=== PATIENT | female | born 1960 | race Caucasian/White ===

== ENCOUNTER 2018-11-25 01:11 | Outpatient (CLI) | payer MEDICAID, SELFPAY ==
--- NOTE | 2018-11-25 12:20 | DI.MAMMO_ITS ---
SYMPTOMS/DIAGNOSIS: SCREENING, Z12.39 MAMMOGRAM: Mammograms were interpreted according to the usual protocol including computer analysis with CAD system, tomosynthesis and C view imaging. The breasts are of moderate density with fairly symmetrical distribution of fibroglandular tissue. No dominant mass or clumped microcalcification is identified in either breast. Current examination is compared with the previous examinations including July 2016 and there has been no gross interval change in appearance in comparison with the previous studies. CONCLUSION: No specific evidence of malignancy at this time. Routine screening examinations are suggested at yearly intervals in this age group according to the ACS/ACR guidelines. Category 1, breast density category B. MQSA ASSESSMENT OF FINDINGS: Negative. Category 1. Patient will receive a letter notifying them of these results. BI-RADS category B. There are scattered areas of fibroglandular density.
== END 2018-11-25 01:31 ==
PROVIDERS: PCP Nurse Practitioner Family; Visit Provider Nurse Practitioner Family
DX: Z12.31 Encounter for screening mammogram for malignant neoplasm of breast (principal)
CPT/HCPCS: 77063; 77067

== ENCOUNTER 2018-12-16 10:05 | Outpatient (REF) | payer MEDICAID, SELFPAY ==
[2018-12-16 16:28] LABS: ALT 41 U/L (12-78); AST 27 U/L (15-37); Albumin 4.2 g/dL (3.4-5.0); Alkaline Phosphatase 113 U/L (46-116); Anion Gap 11.8 mmol/L (3-11); BUN 13 mg/dL (7-18); Bilirubin, Total 0.8 mg/dL (0.2-1.0); CO2 25.2 mmol/L (21.0-32.0); CREATININE 0.91 mg/dL (0.55-1.02); Calculated LDL 97 mg/dL; Chloride 107 mmol/L (98-107); Cholesterol 169 mg/dL (50-200); Glucose 89 mg/dL (70-100); HDL Cholesterol 42 mg/dL (40-60); Potassium 4.2 mmol/L (3.5-5.1); Sodium 144 mmol/L (136-145); Total Protein 7.3 g/dL (6.4-8.2); Triglyceride 151 mg/dL (30-150)
[2018-12-16 16:31] LABS: Mean Corp. HGB Concentration 32.6 g/dL (32.0-36.0); Mean Corpuscular Hemoglobin 28.7 pg (27.0-33.0); Mean Corpuscular Volume 88.1 fL (80-95); Mean Platelet Volume 11.8 fL (8.0-11.0); Platelet Count 311 x1000/uL (130-400); RBC 4.88 m/cumm (4.00-5.20); RBC Distribution Width 13.8 % (11.7-14.6); White Blood Cell Count 8.92 k/cumm (4.4-10.8)
== END 2018-12-16 10:25 ==
LOC: NCHCN 10:05
PROVIDERS: PCP Nurse Practitioner Family; Visit Provider Nurse Practitioner Family
DX: I10 Essential (primary) hypertension (principal); Z00.00 Encounter for general adult medical examination without abnormal findings
CPT/HCPCS: 80053; 80061; 83721; 85027

== ENCOUNTER 2019-07-15 14:28 | Outpatient (REF) | payer MEDICAID, SELFPAY ==
[2019-07-15 19:06] LABS: PROTEIN < 6.0 mg/dL
[2019-07-15 19:10] LABS: COMMENT (LAB VIEW ONLY) 72.71 mg/dL; Microalb ug/mg Crea 11.3 ug/mg Cr
[2019-07-15 19:23] LABS: COMMENT (LAB VIEW ONLY) 73.16 mg/dL
== END 2019-07-15 14:48 ==
LOC: NCHCN 14:28
PROVIDERS: PCP Nurse Practitioner Family; Visit Provider Nurse Practitioner Family
DX: I10 Essential (primary) hypertension (principal)
CPT/HCPCS: 82043; 82565; 82570; 84156

== ENCOUNTER 2020-01-16 12:11 | Outpatient (REF) | payer MEDICAID, SELFPAY ==
--- NOTE | 2020-01-16 11:40 | PAPFT_PTH ---
PATIENT: Eli Brasher LOC: [facility] U#:[id number] AGE/SX: 59/F ROOM: RE01/16/[address]: Connor Decker : 1960 BED: DIS: 01/16/2020 SPEC #: [id number] RECD: 01/16/20 18:12 STATUS: DEANNE REQ #: [id number] [place]: 01/16/20 11:[address]: Connor Decker DEPT: [facility] Cytology RECD BY: Kimmy Monge Tissues: 1 - CX/ENDOCX FOR PAP SMEARS Procedures: PAP THIN PREP/UVM Screening HPV DNA PROBE Comments: [id number]
[2020-01-16 18:32] LABS: HCT 40.5 % (36.0-46.0); HGB 13.3 g/dL (11.2-15.7); MCH 29.4 pg (27.0-33.0); MCHC 32.8 % (32.0-36.0); MCV 89.6 fL (80-95); MPV 11.2 fL (8.0-11.0); Platelet Count 357 10^3/uL (130-400); RBC 4.52 10^6/uL (3.93-5.22); RDW 13.5 % (11.7-14.6); RDW-SD 44.3 fL
[2020-01-16 18:49] LABS: ALT 31 U/L (14-59); AST 16 U/L (15-37); Albumin 4.2 g/dL (3.4-5.0); Alkaline Phosphatase 106 U/L (46-116); Anion Gap 11.9 mmol/L (3-11); BUN 18 mg/dL (7-18); Bilirubin, Total 0.9 mg/dL (0.2-1.0); CO2 25.1 mmol/L (21.0-32.0); CREATININE 0.95 mg/dL (0.55-1.02); Calcium 9.6 mg/dL (8.5-10.1); Chloride 106 mmol/L (98-107); Glucose 90 mg/dL (74-106); Potassium 4.1 mmol/L (3.5-5.1); Sodium 143 mmol/L (136-145); Total Protein 7.3 g/dL (6.4-8.2)
== END 2020-01-16 12:31 ==
LOC: NCHCN 12:11
PROVIDERS: PCP Nurse Practitioner Family; Visit Provider Nurse Practitioner Family
DX: R23.8 Other skin changes (principal); Z12.4 Encounter for screening for malignant neoplasm of cervix; Z11.51 Encounter for screening for human papillomavirus (HPV)
CPT/HCPCS: 80053; 85027; 88142; 87624

== ENCOUNTER 2020-02-18 01:50 | Outpatient (CLI) | payer MEDICAID, SELFPAY ==
--- NOTE | 2020-02-18 | DI.US_ITS ---
EXAM: MG MAMMO DIAGNOSTIC BI CLINICAL HISTORY: LT BREAST LUMP, N63.0,N64.59 TECHNIQUE: Mammograms were interpreted according to the usual protocol including computer analysis w [employer] CAD system, tomosynthesis and C-view imaging. COMPARISON: 2010 through 2018 FINDINGS: Bilateral mammogram: The breasts are composed of scattered fibroglandular densities, Breast Density category B. No suspicious masses or suspicious microcalcifications are seen. No skin thickening or abnormal axillary lymph nodes are seen. There has been no significant change from prior exams. Left breast ultrasound: No cyst or solid mass is seen. There is no ductal dilatation or skin thicken ing. IMPRESSION: BI-RADS Category 1, Negative mammogram Yearly screening mammography is recommended. Breast Density - Category B, scattered fibroglandular densities. A negative radiographic report should not delay biopsy if a dominant or clinically suspicious mass is present. Up to ten percent of cancers are not identified on mammography. A negative report may reinforce clinical impression. Adenosis and dense breasts may obscure an underlying neoplasm. False positive reports average 6 to 10%. Patient will receive a letter notifying them of these results.
== END 2020-02-18 02:10 ==
PROVIDERS: PCP Nurse Practitioner Family; Visit Provider Nurse Practitioner Family
DX: N63.20 Unspecified lump in the left breast, unspecified quadrant (principal); N64.59 Other signs and symptoms in breast; R92.2 Inconclusive mammogram
CPT/HCPCS: 76642; 77062; 77066; G0279

== ENCOUNTER 2020-07-09 18:58 | Outpatient (REF) | payer MEDICAID, SELFPAY ==
[2020-07-09 17:03] LABS: HGB 11.9 g/dL (11.2-15.7); MCH 30.9 pg (27.0-33.0); MCHC 33.1 % (32.0-36.0); MCV 93.5 fL (80-95); MPV 10.9 fL (8.0-11.0); Platelet Count 364 10^3/uL (130-400); RBC 3.85 10^6/uL (3.93-5.22); RDW 13.9 % (11.7-14.6); RDW-SD 47.1 fL; WBC 10.89 10^3/uL (4.4-10.8)
[2020-07-09 17:08] LABS: Iron 79 ug/dL (50-170); Total Iron Binding Capacity 358 ug/dL (250-450); Transferrin Sat 22 % (15-50)
[2020-07-09 17:32] LABS: ALT 47 U/L (14-59); AST 31 U/L (15-37); Albumin 4.3 g/dL (3.4-5.0); Alkaline Phosphatase 124 U/L (46-116); Anion Gap 9.3 mmol/L (3-11); BUN 17 mg/dL (7-18); Bilirubin, Total 1.4 mg/dL (0.2-1.0); CO2 27.7 mmol/L (21.0-32.0); Calcium 9.4 mg/dL (8.5-10.1); Chloride 106 mmol/L (98-107); Estimated GFR 56.56 (mL/min/1.73m2); Ferritin 140 ng/mL (8-252); Glucose 92 mg/dL (74-106); Potassium 4.5 mmol/L (3.5-5.1); Sodium 143 mmol/L (136-145); TSH (W/Ref FT4) 2.08 uIU/mL (0.36-3.74); Total Protein 7.3 g/dL (6.4-8.2)
[2020-07-09 18:03] LABS: Vitamin B12 > 2000 pg/mL (193-986)
[2020-07-12 08:03] LABS: Vitamin D 25 Total 116.3 ng/ml (30-100)
== END 2020-07-09 18:59 | disposition home or self-care (01) ==
LOC: NCHCN 18:58
PROVIDERS: PCP Nurse Practitioner Family; Visit Provider Nurse Practitioner Family
DX: R23.8 Other skin changes (principal); R53.83 Other fatigue; I10 Essential (primary) hypertension; E67.3 Hypervitaminosis D; G25.81 Restless legs syndrome
CPT/HCPCS: 80053; 82306; 85027; 82607; 82728; 83540; 83550; 84443

== ENCOUNTER 2020-08-09 15:38 | Outpatient (REF) | payer MEDICAID, SELFPAY ==
[2020-08-09 19:06] LABS: Anion Gap 9.9 mmol/L (3-11); BUN 19 mg/dL (7-18); CO2 26.1 mmol/L (21.0-32.0); CREATININE 0.8 mg/dL (0.55-1.02); Calcium 9.3 mg/dL (8.5-10.1); Chloride 106 mmol/L (98-107); Glucose 87 mg/dL (74-106); Potassium 4.4 mmol/L (3.5-5.1); Sodium 142 mmol/L (136-145)
[2020-08-09 20:14] LABS: Vitamin D 25 Total 98.4 ng/ml (30-100)
[2020-08-11 10:16] LABS: Parathyroid Hormone,Intact 27 pg/mL (19-88)
== END 2020-08-09 15:39 | disposition home or self-care (01) ==
LOC: NCHCN 15:38
PROVIDERS: PCP Nurse Practitioner Family; Visit Provider Nurse Practitioner Family
DX: I10 Essential (primary) hypertension (principal); R53.83 Other fatigue; Z79.899 Other long term (current) drug therapy
CPT/HCPCS: 80048; 82306; 83970

== ENCOUNTER 2020-10-07 19:35 | Outpatient (REF) | payer MEDICAID, SELFPAY ==
[2020-10-07 17:51] LABS: Calculated LDL 82 mg/dL (<100); Cholesterol 154 mg/dL (<200); HDL Cholesterol 42 mg/dL (40-60); Triglyceride 151 mg/dL (<150)
[2020-10-07 18:13] LABS: Vitamin D 25 Total 89.5 ng/mL (30-100)
== END 2020-10-07 19:36 | disposition home or self-care (01) ==
LOC: NCHCN 19:35
PROVIDERS: PCP Nurse Practitioner Family; Visit Provider Nurse Practitioner Family
DX: E78.5 Hyperlipidemia, unspecified (principal); E55.9 Vitamin D deficiency, unspecified
CPT/HCPCS: 80061; 82306

== ENCOUNTER 2020-11-04 00:31 | Outpatient (CLI) | payer MEDICAID, SELFPAY ==
--- NOTE | 2020-11-04 | DI.US_ITS ---
APPROVED REPORT EXAM: Comprehensive 2D, Doppler, and color-flow Echocardiogram Patient Location: Out-Patient Packing Machine Feeder: Adela Lopez RDCS (AE) Indications: Chest tightness, Dyspnea on Exerction Other Information Study Quality: Good Conclusion Normal left ventricular wall thickness and chamber size. Estimated ejection fraction is 60%. Wall m otion is normal Normal right ventricular size and systolic function Both atria are normal in size There are no structural valvular abnormalities Mild mitral and tricuspid regurgitation. Trace pulmonic regurgitation Estimated right ventricular systolic pressure is 33 mmHg Wall motion Left Ventricle The left ventricle is grossly normal size. The left ventricular systolic function is normal. The left ventricular ejection fraction is within the normal range. There is normal left ventricular wall thic kness. There is normal LV segmental wall motion. There is no ventricular septal defect visualized. LV EF is 60%. Right Ventricle The right ventricle is normal size. The right ventricular systolic function is normal. The RVSP is 33 .2mmHg. Atria The left atrium size is normal. The right atrium size is normal. The interatrial septum is intact wit h no evidence for an atrial septal defect. Aortic Valve The aortic valve is normal in structure. Aortic valve is trileaflet. There is no aortic valvular sten osis. No aortic regurgitation is present. Mitral Valve The mitral valve is normal in structure. No evidence of mitral valve stenosis. Mild mitral regurgitat ion. Tricuspid Valve The tricuspid valve is normal in structure. There is no tricuspid valve stenosis. Mild tricuspid regu rgitation. Pulmonic Valve The pulmonary valve is normal in structure. There is no pulmonic valvular stenosis. Trace pulmonic re gurgitation. Great Vessels The aortic root is normal in size. The ascending aorta is normal in size. Aortic arch is normal in ca liber. IVC is normal in size and collapses >50% with inspiration. Pericardium There is no pericardial effusion. 2D Dimensions IVSD d PLAX 1.00 cm F: 0.6-1.0 LV Vol A2C d MOD 86.6 mL LVPW d PLAX 1.01 cm F: 0.6 - 1.0 LV Vol A4C d MOD 86.5 mL LVID d PLAX 4.34 cm F: 3.8 - 5.2 LA vol/ BSA A2C s A-L 38.8 mL/m2 LVDs 2.75 cm F: 2.2 - 3.5 LA vol/ BSA A4C s A-L 31.0 mL/m2 Ao Root d 2.50 cm F: 2.7 - 3.3 LA Vol/ BSA Biplane s A-L 34.9 mL/m2 RA Area A4C 14.60 cm2 LA Area A4C s MOD 19.42 cm2 RA Vol/ BSA A4C s A-L 20.7 mL/m2 LA Area A2C s MOD 21.57 cm2 Ao Asc Diam d 3.19 cm F: 2.3 - 3.1 LV EF A4C MOD 60.9 % LV EF Teichholz 66.7 % LV EF A2C MOD 58.0 % LVEF (Hatch's) 59.60 % F: 54 - 74 LV EF Biplane MOD 59.6 % LV Volume 68.27 mL F: 46 - 106 SV 52.28 mL LV Volume Index 38.13 mL/m2 F: 29 - 61 SV Index 29.09 mL/m2 LV Vol Biplane MOD 87.7 mL FS 36.65 % LV Diastology E/A Ratio 1.0 MV E Vmax 0.88 (0.4-1.3 m/s) MV A Vmax 0.90 (0.4-1.3 m/s) MV E/A Ratio 0.93 Aortic Valve LVOT Area 2.73 cm2 AoV Area Vmax 2.30 cm2 LVOT Vmax 1.27 m/s AoV Area/ BSA (Vmax) 1.28 cm2/m2 LVOT Mean Kenan. 0.84 m/s FANG Mean Kenan. 2.33 cm2 LVOT Peak Grad 6.5 mmHg FANG Mean Kenan. Index 1.30 cm2/m2 LVOT Mean Grad 3.2 mmHg LVOT VTI 0.281 m LVOT Diam s 1.85 cm AoV Vmax 1.51 m/s Velocity Ratio 0.84 AoV Mean Kenan. 0.98 m/s AoV Peak Grad 9.1 mmHg LVOT SV 76.76 mL AoV Mean Grad 4.4 mmHg AoV VTI 0.305 m AoV Area VTI 2.52 cm2 AoV Area/ BSA (VTI) 1.40 cm/m2 Mitral Valve MV DT 221 (160-240 msec) MR Vmax 4.96 m/s MV PHT 64 msec MR VTI 1.824 m MV Area PHT 3.43 cm2 MR Peak Grad 98.5 mmHg MV VTI 0.347 m MR Mean Grad 73.0 mmHg MV VTI Annulus 0.354 m MR PISA Radius 0.58 cm MV Area VTI 2.26 (4.0-6.0 cm2) MR EROA 0.15 cm2 MR Aliasing Velocity 0.35 m/s MR PISA 2.10 cm2 Pulmonary Valve PV Vmax 0.94 (0.5-1.5 m/s) RVOT Peak Gr. 2.58 mmHg PV Peak Grad 3.5 mmHg RVOT Mean Gr. 1.25 mmHg PV Mean Grad 2.0 mmHg RVOT VTI 0.183 m PV VTI 0.238 m RVOT Vmax 0.80 m/s Tricuspid Valve TR Peak Grad 30.2 mmHg TR Vmax 2.75 m/s RA Pressure 3.00 mmHg RVSP (TR) 33.2 mmHg
--- NOTE | 2020-11-04 08:00 | ETT_ITS ---
APPROVED REPORT Exam: Exercise Treadmill Patient Location: Out-Patient Room/Bed: Stress Nurse: Brenna Lorenzo RN; Nevaeh Wagoner RN Ordering Provider:RAHUL TOLEDO, Contact Number: [phone] BMI: 30.64 Baseline Rhythm: Sinus Bradycardia Indications: chest tightness, dyspnea on exertion Medical History Medical History: HTN, HLD, GERD, hital hernia, anxiety, depression, obesity, vertigo, sciatica, migra gladis, polyarthralgia Cardiac Medications: Aspirin Allergies: lisinopril, sulfa, latex, tetracycline, hydroxyzine Cardiac Risk Factors: HTN, HLD, Obesity Previous Cardiac Procedures: none Pretest Chest Pain Characteristics: No chest pain Exercise History: Sedentary Physical Disabilities: none Lung Sounds: Clear to auscultation Heart Sounds: Regular Stress Test Details Test: Exercise stress testing was performed using a Mukund protocol. Rest Stress HR Resting HR Supine: 57 bpm Max Heart Rate (APMHR): 160 bpm Resting HR Standin bpm Target HR (85% APMHR): 136 bpm Max HR Achieved: 143 bpm % of APMHR: 89 Recovery HR: 74 bpm HR response to stress: Normal HR response to stress BP Resting BP Supine: 150/88 mmHg Resting BP Standin/86 mmHg Max BP: 176/78 mmHg Recovery BP: 150/84 mmHg BP response to stress: Normal blood pressure response to stress. ECG Resting ECG: Sinus Bradycardia Ectopy: none Stress ECG: Sinus Tachycardia ST Change: No significant ST segment changes noted Arrhythmia: None Recovery ECG: Sinus Rhythm Recovery ST Change: No significant ST segment changes noted Recovery Arrhythmia: None Clinical Reason for Termination: Fatigue Stress Symptoms: Chest pain, dizziness, nausea Exercise duration: 6 min53 sec Highest Stage Reached: Stage 3: 3.4 mph at 14% grade. Exercise capacity: 8.41 METs Costa Treadmill Score: 6 Rate Pressure Product: 11580 Stress ECG Conclusion 1. The resting electrocardiogram was normal 2. The patient exercised on the Mukund protocol and completed a workload of 8.41 METS, 3. Normal heart rate and blood pressure response to exercise. The patient achieved 89% of predicted heart rate for age 4. Electrocardiographically there was no evidence of myocardial ischemia 5. There were no significant dysrhythmias Costa Treadmill Score is 6 which is Low risk. Stress Test Summary STAGE Time (mins) Speed (mph) Grade (%) HR BP SYMPTOMS METS Supine 57 150/88 Standing 67 144/86 1 3 1.7 10 122 162/84 3/10 chest pressure 4.6 2 6 2.5 12 136 3/10 chest pressure, mild dizziness, nausea 7 1 min recovery 109 176/78 3 min recovery 83 166/80 symptoms improving 6 min recovery 74 150/84 symptoms resolved
== END 2020-11-04 00:51 ==
PROVIDERS: PCP Nurse Practitioner Family; Visit Provider Nurse Practitioner Family
DX: R06.09 Other forms of dyspnea (principal); I10 Essential (primary) hypertension; E78.5 Hyperlipidemia, unspecified; E66.9 Obesity, unspecified
CPT/HCPCS: 93017; 93306

== ENCOUNTER 2020-12-07 03:39 | Outpatient (CLI) | payer MEDICAID, SELFPAY ==
[2020-12-07] MEDS: Albuterol HFA 18 GM 200 PUFF INH IH (15:56)
[2020-12-07] MEDS: Inhaler, Assist Device 1 EACH MC (15:57)
--- NOTE | 2020-12-08 07:42 | W.PFT ---
Date of service: 12/07/20 Time of Service: 14:51 Pulmonary Function Test Result There is no airflow limitation. There is no significant bronchodilator response. Lung volumes are normal. There is a mild reduction in diffusion. Airways resistance is normal.
== END 2020-12-07 03:40 | disposition home or self-care (01) ==
LOC: RT 03:40
PROVIDERS: PCP Nurse Practitioner Family; Visit Provider Physician Assistant
DX: R06.09 Other forms of dyspnea (principal)
CPT/HCPCS: 94060; 94726; 94729

== ENCOUNTER 2021-03-25 13:28 | Emergency (ER) | payer MEDICAID, SELFPAY ==
[2021-03-25 13:31] VITALS: BP 140/76; PULSE 80; RESP 18; TEMP 37.4; O2SAT 99
[2021-03-25] MEDS: Normal Saline 1,000 ML 1000 ML IV (14:03)
[2021-03-25 14:04] LABS: Abs Immature Grans 0.13 10^3/uL (0.0-0.06); Absolute Basophil Count 0.06 10^3/uL (0.0-0.2); Absolute Monocyte Count 1.27 10^3/uL (0.1-0.8); Basophils % 0.3; Eosinophils % 0.5; HGB 9.8 g/dL (11.2-15.7); Immature Grans % 0.6; Lymphocytes % 9.6; MCH 31.9 pg (27.0-33.0); MCHC 32.7 % (32.0-36.0); MCV 97.7 fL (80-95); MPV 9.9 fL (8.0-11.0); Monocytes % 6.3; Neutrophils % 82.7; Nucleated RBC 0 %; Platelet Count 373 10^3/uL (130-400); RBC 3.07 10^6/uL (3.93-5.22); RDW 15.2 % (11.7-14.6); RDW-SD 51.8 fL; WBC 20.14 10^3/uL (4.4-10.8)
[2021-03-25 14:05] LABS: Absolute Lymphocyte Count 1.93 10^3/uL (1.2-3.4); Absolute Neutrophil Count 16.66 10^3/uL (1.2-6.7)
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
[2021-03-25] MEDS: HYDROmorphone 2 MG/ML VIAL 1 MG IVP ×2 (14:17→15:38)
[2021-03-25 14:25] LABS: ALT 30 U/L (14-59); AST 51 U/L (15-37); Albumin 4.2 g/dL (3.4-5.0); Alkaline Phosphatase 111 U/L (46-116); Anion Gap 10.4 mmol/L (3-11); BUN 17 mg/dL (7-18); Bilirubin, Direct 0.3 mg/dL (0.0-0.2); Bilirubin, Total 5.3 mg/dL (0.2-1.0); CO2 26.6 mmol/L (21.0-32.0); CREATININE 1.1 mg/dL (0.55-1.02); Chloride 104 mmol/L (98-107); Glucose 112 mg/dL (74-106); Lipase 90 U/L (73-393); Potassium 3.3 mmol/L (3.5-5.1); Sodium 141 mmol/L (136-145); Total Protein 7.8 g/dL (6.4-8.2)
[2021-03-25] MEDS: Omnipaque 350 MG/ML 100 ML BTL IJ (15:25)
[2021-03-25] MEDS: Normal Saline Flush 10 ML SYR IVP (15:26)
[2021-03-25] MEDS: Normal Saline - Diluent 50 ML VIAL IV (15:26)
--- NOTE | 2021-03-25 15:30 | DI.CT_ITS ---
Exam(s) CT ABDOMEN PELVIS W EXAM: CT ABDOMEN PELVIS W CLINICAL HISTORY: right sided abdominal pain. TECHNIQUE: Imaging Protocol: Axial computed tomography images with coronal and sagittal reformatted images were created and reviewed CONTRAST MATERIAL: Intravenous: Omnipaque 350 Contrast volume:100 ml Oral: no COMPARISON: CT ABD PELVIS WITH CONTRAST from 10/18/2012 CT ABD PELVIS WITH CONTRAST from 10/18/2012 FINDINGS: ABDOMEN: Lung Bases: Normal where visualized. Liver: Normal density. No stable hypodensities.. Gallbladder and biliary tract: Status post cholecystectomy. No radiodense calculus or dilation. Pancreas: Normal density, no abnormal calcifications or inflammatory process. Spleen: Normal. Kidneys: Normal size, contour and axis. No radiodense stones or obstructive uropathy. No masses seen. Left renal cyst. Adrenal glands: No masses seen. Abdominal Aorta: Abdominal portion non-dilated. PELVIS: Bladder: No gross wall thickening. No calculi.No focal mass. Bowel: Marked inflammation at the hepatic flexure and proximal transverse colon. Diverticula are vis ible in this area. The findings are consistent with diverticulitis. No abscess or perforation is se en. There is no obstruction.. Appendix normal. Peritoneal cavity: Trace fluid in the low pelvis. Bones: Within normal limits for age. Reproductive organs: Within normal limits. Lymph nodes: Unremarkable. Impression: Diverticulitis near the hepatic flexure. No abscess or perforation. Findings were called to Dr. Monroe Ibanez of the emergency department. RADIATION DOSE DELIVERED: 976.65mGy.cm Total DLP DATA REPOSITORY: All CT scans at this facility are submitted to the National Radiology Data Registry (NRDR) Dose Index Registry (DIR) with the [employer] (ACR). RADIATION OPTIMIZATION: All CT scans at this facility use at least one of these dose optimization te chniques: automated exposure control; mA and/or kV adjustment per patient size (includes targeted exa ms where dose is matched to clinical indication); or iterative reconstruction.
[2021-03-25 15:41] LABS: Bilirubin Negative (Negative); Blood Trace-intact (Negative); Clarity Clear (Clear); Glucose Negative (Negative); Ketones Negative (Negative); Leukocyte Esterase Negative (Negative); Nitrite Negative (Negative); Urobilinogen 0.2 EU/dL (Up TO 0.2)
[2021-03-25 16:00] LABS: Bacteria Rare HPF (Negative); C & S Indicated? No; Crystals Negative HPF (Negative); Epithelial Cells Moderate HPF (Negative); Mucus Moderate (Negative); RBC 0-2 HPF (0-2); WBC 0-2 HPF (0-5)
[2021-03-25] MEDS: Ciprofloxacin 500 MG TAB PO (16:10)
[2021-03-25] MEDS: metroNIDAZOLE 500 MG TAB PO (16:10)
[2021-03-25 16:18] VITALS: BP 133/80; PULSE 74; TEMP 37.2; O2SAT 97
== END 2021-03-25 16:20 | disposition home or self-care (01) ==
PROVIDERS: Emergency Provider Emergency Medicine; PCP Physician Assistant
DX: K57.32 Diverticulitis of large intestine without perforation or abscess without bleeding (principal); R10.11 Right upper quadrant pain; R10.31 Right lower quadrant pain
CPT/HCPCS: 36415; 80053; 83690; 96361; 96374; 96376; 99285; 74177; 81003; 81015; 82248; 83735; 85025; 99284; J3490

== ENCOUNTER 2021-04-27 14:15 | Outpatient (CLI) | payer MEDICAID, SELFPAY ==
--- NOTE | 2021-04-27 | DI.CT_ITS ---
Exam(s) CT ABDOMEN PELVIS W EXAM: CT ABDOMEN PELVIS W CLINICAL HISTORY: DIVERTICULITIS, K57.92. TECHNIQUE: Imaging Protocol: Axial computed tomography images with coronal and sagittal reformatted images were created and reviewed CONTRAST MATERIAL: Intravenous: Omnipaque 100cc Oral: Oral contrast was administered for bowel opacification. COMPARISON: CT CT ABDOMEN PELVIS W from 03/25/2021 FINDINGS: VISUALIZED LUNG BASES: No nodules nor pleural effusions evident. ABDOMEN: There is no ascites. LIVER: There are no focal hepatic lesions evident. No evidence of hepatic abscess. No air in the po rtal venous system. GALLBLADDER/BILIARY: Gallbladder is again noted to be surgically absent CBD is not dilated. PANCREAS: No evidence of pancreatic mass nor dilatation of the pancreatic duct. SPLEEN: Spleen is not enlarged. No obvious intrasplenic lesions. Splenic and portal veins are paten t. ADRENALS: There are no significant adrenal masses. KIDNEYS:Cyst again noted in the left kidney extending from the parapelvic region to the outer cortex and measuring 3.9 cm wide by 2.8 cm AP. Tiny cysts noted in the opposite-right kidney. No solid guerline al masses. No calculi. No hydronephrosis. No hydroureter. No significant focal findings in the ur inary bladder. No air-gas in the urinary bladder.. ABDOMINAL AORTA: Abdominal aorta is not enlarged. LYMPH NODES:There is no retroperitoneal nor paraaortic adenopathy. ABDOMINAL WALL: No evidence of significant anterior abdominal wall nor inguinal hernia. GI: There has been significant improvement in the appearance of the: At the hepatic flexure and proxi mal transverse colon which was the site of the previous severe inflammatory change. Presently are fe w small non complicated diverticuli evident at this level. No distinct mass. No abscess. PELVIS: GI: No evidence of appendicitis.There is diffuse mild thickening of the wall of the entire sigmoid wh ich has more the appearance of muscular hyperplasia. LYMPH NODES: There is no intrapelvic nor inguinal adenopathy. REPRODUCTIVE: Uterus size is normal. Adnexal regions appear age-appropriate. There is no free fluid in the pelvis. URINARY BLADDER: No calculi nor obvious masses evident OSSEOUS: No significant osseous lesions. IMPRESSION: 1. Compared to the prior CT scan of 03/25/2021 there has been significant improvement in the previous ly described inflammatory changes in the right-side of the colon. These have now resolved and there is no evidence of free air nor abscess nor free fluid elsewhere in the abdomen and pelvis. No signif icant adenopathy. 2. No evidence of intrahepatic abscess nor free air within the portal venous system 3. There is diffuse circumferential thickening of the wall of a large part of the sigmoid, probably m uscular hyperplasia. Follow-up colonoscopy is recommended. RADIATION DOSE DELIVERED: 976.93mGy.cm Total DLP DATA REPOSITORY: All CT scans at this facility are submitted to the National Radiology Data Registry (NRDR) Dose Index Registry (DIR) with the [employer] (ACR). RADIATION OPTIMIZATION: All CT scans at this facility use at least one of these dose optimization te chniques: automated exposure control; mA and/or kV adjustment per patient size (includes targeted exa ms where dose is matched to clinical indication); or iterative reconstruction.
[2021-04-27] MEDS: Breeza Beverage 473 ML BTL PO (14:53)
[2021-04-27] MEDS: Omnipaque 350 MG/ML 50 ML BTL IJ (14:54)
[2021-04-27] MEDS: Omnipaque 350 MG/ML 100 ML BTL IJ (16:26)
== END 2021-04-27 14:35 ==
PROVIDERS: PCP Physician Assistant; Visit Provider Surgery
DX: K57.92 Diverticulitis of intestine, part unspecified, without perforation or abscess without bleeding (principal); R93.3 Abnormal findings on diagnostic imaging of other parts of digestive tract
CPT/HCPCS: 74177; J3490; Q9967

== ENCOUNTER 2021-04-27 14:56 | Outpatient (REF) | payer MEDICAID, SELFPAY ==
[2021-04-27 13:46] LABS: C Diff PCR Negative (Negative)
[2021-04-27 14:54] LABS: Abs Immature Grans 0.05 10^3/uL (0.0-0.06); Absolute Basophil Count 0.08 10^3/uL (0.0-0.2); Absolute Eosinophil Count 0.24 10^3/uL (0.0-0.7); Absolute Lymphocyte Count 2.25 10^3/uL (1.2-3.4); Absolute Monocyte Count 0.69 10^3/uL (0.1-0.8); Absolute Neutrophil Count 5.86 10^3/uL (1.2-6.7); Basophils % 0.9; Eosinophils % 2.6; HCT 29.9 % (36.0-46.0); HGB 9.5 g/dL (11.2-15.7); Immature Grans % 0.5; Lymphocytes % 24.5; MCH 31.8 pg (27.0-33.0); MCHC 31.8 % (32.0-36.0); MPV 10.3 fL (8.0-11.0); Monocytes % 7.5; Nucleated RBC 0 %; Platelet Count 343 10^3/uL (130-400); RBC 2.99 10^6/uL (3.93-5.22); RDW 15.6 % (11.7-14.6); RDW-SD 56.5 fL; WBC 9.17 10^3/uL (4.4-10.8)
[2021-04-27 15:09] LABS: ALT 39 U/L (14-59); AST 25 U/L (15-37); Albumin 4.2 g/dL (3.4-5.0); Alkaline Phosphatase 112 U/L (46-116); Anion Gap 8.3 mmol/L (3-11); BUN 15 mg/dL (7-18); Bilirubin, Total 2.2 mg/dL (0.2-1.0); CO2 26.7 mmol/L (21.0-32.0); CREATININE 0.9 mg/dL (0.55-1.02); Chloride 108 mmol/L (98-107); Glucose 102 mg/dL (74-106); Potassium 3.7 mmol/L (3.5-5.1); Sodium 143 mmol/L (136-145); Total Protein 7.3 g/dL (6.4-8.2)
[2021-04-27 22:44] LABS: CRP, High Sensitivity 7.14 mg/L (See Note)
== END 2021-04-27 14:57 | disposition home or self-care (01) ==
LOC: LBN 14:56
PROVIDERS: PCP Physician Assistant; Visit Provider Surgery
DX: K57.92 Diverticulitis of intestine, part unspecified, without perforation or abscess without bleeding (principal)
CPT/HCPCS: 80053; 86141; 87493; 85025

== ENCOUNTER 2021-06-08 01:26 | Outpatient (CLI) | payer MEDICAID, SELFPAY ==
--- NOTE | 2021-06-08 17:00 | DI.DEXA_ITS ---
Exam(s) XR DEXA BONE DENSITY W/WO WINDY EXAM: XR DEXA BONE DENSITY W/WO WINDY CLINICAL HISTORY: NORMAL PHYSICAL EXAMINATION, Z00.00 TECHNIQUE: Routine DEXA evaluation of the lumbar spine, hip, or forearm. COMPARISON: No exams were available for comparison FINDINGS: Performed on a Hologic unit. Lateral image: No compression fracture evident. Lumbar Spine total T-score: -0.8 Hip total T-score:0.2 Independent reading at the level of the femoral neck yields at T-score of 0.0. Forearm total T-score: -0.7 IMPRESSION: Bone mineral density measures in the normal range. Fracture risk is low. Note: Any spine fracture indicates 5x risk for subsequent spine fracture and 2x risk for subsequent h ip fracture. World Health Organization criteria for BMD interpretation classify patients: Normal...... T- Score at or above -1.0 Osteopenic... T- Score between -1.0 and -2.5 Osteoporosis... T-Score at or below -2.5
== END 2021-06-08 01:46 ==
PROVIDERS: PCP Physician Assistant; Visit Provider Physician Assistant
DX: Z13.820 Encounter for screening for osteoporosis (principal)
CPT/HCPCS: 77080

== ENCOUNTER 2021-06-10 01:40 | Outpatient (CLI) | payer MEDICAID, SELFPAY ==
[2021-06-11 13:27] LABS: COVID-19 RT-PCR UVMMC Result Negative (Negative)
== END 2021-06-10 01:41 | disposition home or self-care (01) ==
LOC: LBO 01:40
PROVIDERS: PCP Physician Assistant; Visit Provider Surgery
DX: Z20.822 Contact with and (suspected) exposure to COVID-19 (principal); R13.10 Dysphagia, unspecified; K57.92 Diverticulitis of intestine, part unspecified, without perforation or abscess without bleeding
CPT/HCPCS: U0003

== ENCOUNTER 2022-01-07 15:58 | Inpatient (IN) | payer MEDICAID, SELFPAY ==
[2022-01-07 16:05] VITALS: BP 124/69; PULSE 72; RESP 18; TEMP 36.9; O2SAT 98
--- NOTE | 2022-01-07 16:30 | DI.CT_ITS ---
Exam(s) CT ABDOMEN PELVIS W EXAM: CT ABDOMEN PELVIS W INDICATION: diffuse abd pain, r/o diverticulitis, sbo, colitis. COMPARISON: CT CT ABDOMEN PELVIS W from 04/27/2021 TECHNIQUE: FINDINGS: CT examination of the abdomen and pelvis was performed with intravenous infusion of 100 cc of Omnipaq ue 350. Images obtained through the lung bases are unremarkable. The liver is unremarkable in appearance except for a small low-attenuation central lesion, this previ ously had appearance of hepatic hemangioma.. Gallbladder and bile ducts are CT normal. Pancreas appears normal. Spleen is unremarkable in appearance. Adrenals appear normal. The kidneys are unremarkable with no evidence of hydronephrosis, nephrolithiasis, or renal mass. The re is an incidental left renal cortical cyst measuring roughly 3.2 cm in diameter.. Urinary bladder unremarkable. Abdominal aorta is of normal diameter and no major vascular abnormality is seen. No abdominal wall hernia. No abdominal or pelvic adenopathy. [employer] structures appear intact. Appendix is normal. There is no evidence of bowel obstruction. There is focal wall thickening and p ericolonic fat edema associated with the proximal transverse colon consistent with uncomplicated dive rticulitis. No abscess or perforation.. IMPRESSION: The appearance is consistent with diverticulitis of the proximal transverse colon, uncomplicated. Pl ease see above discussion.. RADIATION DOSE DELIVERED: 1,043.87mGy.cm Total DLP 1,043.87mGy.cm Total DLP !Error CTDIvol RADIATION OPTIMIZATION: All CT scans at this facility use at least one of these dose optimization te chniques: automated exposure control; mA and/or kV adjustment per patient size (includes targeted exa ms where dose is matched to clinical indication); or iterative reconstruction.
[2022-01-07] MEDS: HYDROmorphone 2 MG/ML VIAL 0.5 MG IVP (16:48)
[2022-01-07 16:58] LABS: Abs Immature Grans 0.14 10^3/uL (0.0-0.06); Absolute Eosinophil Count 0.06 10^3/uL (0.0-0.7); Absolute Neutrophil Count 17.95 10^3/uL (1.2-6.7); Basophils % 0.3; Eosinophils % 0.3; HCT 26.1 % (36.0-46.0); HGB 8.9 g/dL (11.2-15.7); Immature Grans % 0.7; Lymphocytes % 9.5; MCH 34.5 pg (27.0-33.0); MCHC 34.1 % (32.0-36.0); MCV 101 fL (80-95); MPV 10.6 fL (8.0-11.0); Monocytes % 5.3; Neutrophils % 83.9; Platelet Count 392 10^3/uL (130-400); RBC 2.58 10^6/uL (3.93-5.22); RDW 18.5 % (11.7-14.6); RDW-SD 55.2 fL
[2022-01-07 17:08] LABS: Absolute Basophil Count 0.06 10^3/uL (0.0-0.2); Absolute Lymphocyte Count 2.03 10^3/uL (1.2-3.4); Absolute Monocyte Count 1.13 10^3/uL (0.1-0.8)
[2022-01-07 17:12] LABS: ALT 28 U/L (14-59); AST 17 U/L (15-37); Alkaline Phosphatase 109 U/L (46-116); Anion Gap 9.5 mmol/L (3-11); BUN 19 mg/dL (7-18); Bilirubin, Total 4.5 mg/dL (0.2-1.0); CO2 26.5 mmol/L (21.0-32.0); Calcium 8.5 mg/dL (8.5-10.1); Chloride 104 mmol/L (98-107); Estimated GFR 56.37 (mL/min/1.73m2); Glucose 97 mg/dL (74-106); Lipase 72 U/L (73-393); Potassium 3.7 mmol/L (3.5-5.1); Sodium 140 mmol/L (136-145); Total Protein 7.3 g/dL (6.4-8.2)
[2022-01-07 17:26] LABS: Bacteria Negative HPF (Negative); Bilirubin Negative (Negative); Blood Trace-intact (Negative); C & S Indicated? No; Casts Negative LPF (Negative); Clarity Clear (Clear); Crystals Negative HPF (Negative); Epithelial Cells Rare HPF (Negative); Glucose Negative (Negative); Ketones Negative (Negative); Leukocyte Esterase Negative (Negative); Mucus Negative (Negative); Nitrite Negative (Negative); Other Cells Negative (Negative); RBC Negative HPF (0-2); Urobilinogen 0.2 EU/dL (Up TO 0.2); WBC 0-2 HPF (0-5)
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
[2022-01-07] MEDS: HYDROmorphone 2 MG/ML VIAL 1 MG IVP (18:25)
--- NOTE | 2022-01-07 20:03 | DI.VRAD_ITS ---
Addendum created by Miriam Lou MD on 01/07/2022 8:06:51 PM EDT: THIS REPORT CONTAINS FINDINGS THAT MAY BE CRITICAL TO PATIENT CARE. The findings were verbally communicated via telephone conference with lucian pettit at 8:06 PM EDT on 01/07/2022. The findings were acknowledged and understood. Initial report created on 01/07/2022 8:02:51 PM EDT: PROCEDURE INFORMATION: Exam: CT Abdomen And Pelvis With Contrast Exam date and time: 01/07/2022 6:47 PM Age: 61 years old Clinical indication: Abdominal pain TECHNIQUE: Imaging protocol: Computed tomography of the abdomen and pelvis with contrast. Contrast material: OMNIPAQUE 350; Contrast volume: 100 ml; Contrast route: INTRAVENOUS (IV); COMPARISON: CT ABDOMEN PELVIS W 04/27/2021 4:20 PM FINDINGS: Lungs: Atelectasis versus scarring at the lung bases. Diaphragm: Small hiatal hernia. Liver: There is a hypodensity in the right hepatic lobe on series 4, image 22. On prior examination, this demonstrated some peripheral nodular enhancement, suggesting that it could represent a hemangioma. Diagnosis can be confirmed with MRI. Gallbladder and bile ducts: Cholecystectomy. Pancreas: There is a small 4 mm hypodensity in the pancreatic body on series 5, image 233. This may represent a pancreatic lipoma. MRI with and without contrast suggested for further evaluation. This is unchanged from prior exam. Spleen: Normal. No splenomegaly. Adrenal glands: Normal. No mass. Kidneys and ureters: Cystic structure in the left kidney remains seen. There are too small to characterize hypodensities in each kidney. No hydronephrosis. Stomach and bowel: No obstruction. There are inflamed appearing diverticula within the proximal transverse colon on series 4, image 47 with stranding of the surrounding fat. Findings are most consistent with acute diverticulitis. There is also a focus of fat stranding near the sigmoid colon on series 4, image 73 concerning for a 2nd subtle focus of diverticulitis. Appendix: No evidence of appendicitis. Intraperitoneal space: No free air. A surgical clip is noted in the anterior intraperitoneal fat, series 4, image 47. Vasculature: Unremarkable. No abdominal aortic aneurysm. Lymph nodes: Unremarkable. No enlarged lymph nodes. Urinary bladder: Urinary bladder wall prominence. This can be seen with infection or underdistention. Reproductive: Unremarkable as visualized. Bones/joints: Skeletal degenerative changes.. No acute fracture. Soft tissues: Unremarkable. IMPRESSION: 1. There are inflamed appearing diverticula within the proximal transverse colon on series 4, image 47 with stranding of the surrounding fat. Findings are most consistent with acute diverticulitis. There is also a focus of fat stranding near the sigmoid colon on series 4, image 73 concerning for a 2nd subtle focus of diverticulitis. 2. Possible pancreatic lipoma. MRI with and without contrast suggested for further evaluation. There is also a probable hemangioma within the liver. Diagnosis can be confirmed with MRI. 3. Urinary bladder wall prominence. This can be seen with infection or underdistention. Other findings/details as above. Dictated and Authenticated by: Miriam Lou MD. Ordering:NII Gipson MD
[2022-01-07 20:04] VITALS: BP 138/68; PULSE 66; RESP 16; TEMP 36.6; O2SAT 98
[2022-01-07] MEDS: PIPERACILLIN/TAZO 3.375 GM in Normal Saline 50 ML IVPB (20:39)
[2022-01-07] MEDS: Normal Saline 1,000 ML 1000 ML IV (20:40)
[2022-01-07] MEDS: Normal Saline Flush 10 ML SYR IVP ×2 (20:40→23:27)
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
[2022-01-07 22:05] VITALS: BP 138/68; PULSE 66; RESP 16; TEMP 36.6; O2SAT 98
[2022-01-07 22:17] LABS: Source Nasal/Nares
[2022-01-07 22:22] VITALS: BP 147/83; PULSE 66; RESP 20; TEMP 36.6; O2SAT 97
[2022-01-07 22:24] LABS: Lab Add On Test DONE
[2022-01-07 22:45] LABS: C-Reactive Protein 8.39 mg/dL (0.0-0.3)
[2022-01-07] MEDS: DEXTROSE 5%-0.45% SALINE 1,000 ML 125 ML IV (23:17)
[2022-01-07] MEDS: Enoxaparin 40 MG/0.4 ML SYR SC (23:17)
[2022-01-07] MEDS: FAMOTIDINE 20 MG in Normal Saline 100 ML 400 MG IVPB (23:17)
[2022-01-07] MEDS: Ketorolac 15 MG/ML VIAL IVP (23:18)
[2022-01-07] MEDS: traZODone 100 MG TAB PO (23:18)
[2022-01-07] MEDS: Hyoscyamine 0.125 MG SL/ORAL/CHEW SL (23:18)
[2022-01-08 00:11] LABS: COVID-19 PCR Negative (Negative)
[2022-01-08] MEDS: PIPERACILLIN/TAZO 3.375 GM in Normal Saline 50 ML IVPB ×3 (03:50→21:00)
[2022-01-08 06:19] LABS: Absolute Basophil Count 0.03 10^3/uL (0.0-0.2); Absolute Eosinophil Count 0.06 10^3/uL (0.0-0.7); Absolute Lymphocyte Count 1.17 10^3/uL (1.2-3.4); Absolute Monocyte Count 0.75 10^3/uL (0.1-0.8); Absolute Neutrophil Count 12.32 10^3/uL (1.2-6.7); Basophils % 0.2; Eosinophils % 0.4; HCT 22.4 % (36.0-46.0); HGB 7.5 g/dL (11.2-15.7); Immature Grans % 0.7; Lymphocytes % 8.1; MCH 33.5 pg (27.0-33.0); MCHC 33.5 % (32.0-36.0); MCV 100 fL (80-95); MPV 10.5 fL (8.0-11.0); Monocytes % 5.2; Neutrophils % 85.4; Platelet Count 290 10^3/uL (130-400); RBC 2.24 10^6/uL (3.93-5.22); RDW 16.4 % (11.7-14.6); RDW-SD 55.3 fL; WBC 14.43 10^3/uL (4.4-10.8)
[2022-01-08 06:27] LABS: BUN 13 mg/dL (7-18); C-Reactive Protein 12.83 mg/dL (0.0-0.3); CREATININE 0.8 mg/dL (0.55-1.02); Calcium 8.1 mg/dL (8.5-10.1); Chloride 110 mmol/L (98-107); Glucose 114 mg/dL (74-106); Potassium 3.8 mmol/L (3.5-5.1)
[2022-01-08 06:31] LABS: Anion Gap 10.4 mmol/L (3-11); CO2 23.6 mmol/L (21.0-32.0); Sodium 144 mmol/L (136-145)
[2022-01-08 06:53] LABS: Diff Comment Diff Reviewed; Hypochromasia 2+; Polychromasia Present
[2022-01-08 07:35] VITALS: BP 111/70; PULSE 81; RESP 18; TEMP 37; O2SAT 96
[2022-01-08] MEDS: Normal Saline Flush 10 ML SYR IVP ×2 (07:54→13:29)
[2022-01-08] MEDS: Ketorolac 15 MG/ML VIAL IVP ×3 (07:54→20:18)
[2022-01-08] MEDS: Hyoscyamine 0.125 MG SL/ORAL/CHEW SL ×2 (07:55→13:27)
[2022-01-08] MEDS: FAMOTIDINE 20 MG in Normal Saline 100 ML 400 MG IVPB ×2 (07:56→20:18)
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
--- NOTE | 2022-01-08 11:41 | W.PM.PROGNOT ---
Date of Service Date of service: 01/08/22 Time of Service: 11:41 Assessment and Plan Assessment and plan (1) Acute diverticulitis: Status: Acute Assessment and plan: zosyn probiotic IS supportive care (2) Leukocytosis: Status: Acute (3) Chronic migraine without aura, intractable, without status migrainosus: Status: Acute (4) Chronic anemia: Status: Acute Assessment and plan: iron studies are normal Subjective Subjective Interval history since last seen: no headaches. No CP or SOB. no productive cough. no dysuria. no leg pain or swelling. Feels slightly less pain today. + liquid BM last pm. no blood. she is passing gas. Still feels bloated. Exam Resp Effort & Inspection: normal respiratory effort and able to speak in complete sentences Auscultation: clear to auscultation bilaterally Cardio Rate: regular rate Rhythm: regular rhythm GI Inspection: distended (mild) Auscultation: normal bowel sounds Extrem General: no clubbing, cyanosis or edema Objective Last Vital Signs Temp 37.0 C 01/08/22 07:35 Pulse 81 01/08/22 07:35 Resp 18 01/08/22 07:35 BP 111/70 01/08/22 07:35 Pulse Ox 96 01/08/22 07:35 Laboratory Results - last 24 hr 01/07/22 01/07/22 01/07/22 16:35 16:35 16:35 WBC 21.40 H RBC 2.58 L Hgb 8.9 L Hct 26.1 L MCV 101 H MCH 34.5 H MCHC 34.1 RDW 18.5 H Plt Count 392 MPV 10.6 Immature Gran % 0.7 Neutrophils % 83.9 Lymphocytes % 9.5 Monocytes % 5.3 Eosinophils % 0.3 Basophils % 0.3 Nucleated RBC % 0.0 Absolute Neutrophils 17.95 H Absolute Lymphocytes 2.03 Absolute Monocytes 1.13 H Absolute Eosinophils 0.06 Absolute Basophils 0.06 RBC Morphology Polychromasia Hypochromasia Sodium 140 Potassium 3.7 Chloride 104 Carbon Dioxide 26.5 Anion Gap 9.5 BUN 19 H Creatinine 1.0 Estimated GFR/1.73 m2 56.37 Glucose 97 Calcium 8.5 Magnesium Total Bilirubin 4.5 H AST 17 ALT 28 Alkaline Phosphatase 109 C-Reactive Protein Total Protein 7.3 Albumin 4.0 Lipase 72 Urine Color Urine Clarity Urine pH Ur Specific [place] Urine Protein Urine Ketones Urine Blood Urine Nitrite Urine Bilirubin Urine Urobilinogen Ur Leukocyte Esterase Urine RBC Urine WBC Ur Epithelial Cells Urine Crystals Urine Bacteria Urine Casts Urine Mucus Urine Other Ur Culture Indicated? Urine Glucose COVID-19 Source SARS-CoV-2 (PCR) Add-On Test Request DONE 01/07/22 01/07/22 01/07/22 16:35 16:58 22:15 WBC RBC Hgb Hct MCV MCH MCHC RDW Plt Count MPV Immature Gran % Neutrophils % Lymphocytes % Monocytes % Eosinophils % Basophils % Nucleated RBC % Absolute Neutrophils Absolute Lymphocytes Absolute Monocytes Absolute Eosinophils Absolute Basophils RBC Morphology Polychromasia Hypochromasia Sodium Potassium Chloride Carbon Dioxide Anion Gap BUN Creatinine Estimated GFR/1.73 m2 Glucose Calcium Magnesium Total Bilirubin AST ALT Alkaline Phosphatase C-Reactive Protein 8.39 H Total Protein Albumin Lipase Urine Color Yellow Urine Clarity Clear Urine pH 6.0 Ur Specific [place] 1.010 Urine Protein Negative Urine Ketones Negative Urine Blood Trace-intact H Urine Nitrite Negative Urine Bilirubin Negative Urine Urobilinogen 0.2 Ur Leukocyte Esterase Negative Urine RBC Negative Urine WBC 0-2 Ur Epithelial Cells Rare Urine Crystals Negative Urine Bacteria Negative Urine Casts Negative Urine Mucus Negative Urine Other Negative Ur Culture Indicated? No Urine Glucose Negative COVID-19 Source Nasal/Nares SARS-CoV-2 (PCR) Negative Add-On Test Request 01/08/22 01/08/22 05:50 05:50 WBC 14.43 H RBC 2.24 L Hgb 7.5 L Hct 22.4 L MCV 100 H MCH 33.5 H MCHC 33.5 RDW 16.4 H Plt Count 290 MPV 10.5 Immature Gran % 0.7 Neutrophils % 85.4 Lymphocytes % 8.1 Monocytes % 5.2 Eosinophils % 0.4 Basophils % 0.2 Nucleated RBC % 0.0 Absolute Neutrophils 12.32 H Absolute Lymphocytes 1.17 L Absolute Monocytes 0.75 Absolute Eosinophils 0.06 Absolute Basophils 0.03 RBC Morphology See Below Polychromasia Present Hypochromasia 2+ Sodium 144 Potassium 3.8 Chloride 110 H Carbon Dioxide 23.6 Anion Gap 10.4 BUN 13 Creatinine 0.8 Estimated GFR/1.73 m2 >= 60.00 Glucose 114 H Calcium 8.1 L Magnesium 2.0 Total Bilirubin AST ALT Alkaline Phosphatase C-Reactive Protein 12.83 H Total Protein Albumin Lipase Urine Color Urine Clarity Urine pH Ur Specific [place] Urine Protein Urine Ketones Urine Blood Urine Nitrite Urine Bilirubin Urine Urobilinogen Ur Leukocyte Esterase Urine RBC Urine WBC Ur Epithelial Cells Urine Crystals Urine Bacteria Urine Casts Urine Mucus Urine Other Ur Culture Indicated? Urine Glucose COVID-19 Source SARS-CoV-2 (PCR) Add-On Test Request
[2022-01-08 11:47] LABS: Lab Add On Test DONE
[2022-01-08] MEDS: Rizatriptan 10 MG TAB PO (12:08)
[2022-01-08 12:09] LABS: Iron 61 ug/dL (50-170); Total Iron Binding Capacity 271 ug/dL (250-450); Transferrin Sat 23 % (15-50)
[2022-01-08 12:22] LABS: Ferritin 486 ng/mL (8-252)
[2022-01-08 15:35] VITALS: BP 120/71; PULSE 75; RESP 16; TEMP 37.2; O2SAT 98
[2022-01-08] MEDS: ACETAMINOPHEN 1,000 MG/100 ML BTL 400 MG IVPB ×2 (17:29→23:20)
[2022-01-08] MEDS: DEXTROSE 5%-0.45% SALINE 1,000 ML 125 ML IV (18:02)
--- NOTE | 2022-01-08 18:57 | NUR.NOTE ---
Nursing Note: : I have reviewed the documentation of Farhad Fields LPN and find it thorough.
[2022-01-08 23:18] VITALS: BP 122/73; PULSE 75; RESP 16; TEMP 37.1; O2SAT 99
[2022-01-08] MEDS: Enoxaparin 40 MG/0.4 ML SYR SC (23:59)
[2022-01-09] VITALS (15 sets, daily range): BP systolic 131–158; BP diastolic 67–89; PULSE 51–68; RESP 18–19; TEMP 36.3–37; O2SAT 96–99
--- NOTE | 2022-01-09 | DI.US_ITS ---
Exam(s) US ABDOMEN LIMITED EXAM: US ABDOMEN LIMITED CLINICAL HISTORY: worsening bilirubinemia TECHNIQUE: Ultrasound abdomen performed using standard protocol. COMPARISON: CT CT ABDOMEN PELVIS W from 01/07/2022 FINDINGS: PANCREAS: Normal where visualized. LIVER: There is diffuse increased echogenicity of the liver consistent with fatty infiltration. Ther e is an area of decreased echogenicity adjacent to the gallbladder fossa likely reflecting focal fatt y sparing. Hepatopedal flow in the Portal Vein. The liver measures in 15.2 cm length. GALLBLADDER:Status post cholecystectomy. BILIARY SYSTEM: Common bile duct measures < 7 mm. No intrahepatic biliary ductal dilation. ARRIOLA'S SIGN: Negative. RIGHT KIDNEY: Kidney is normal in size. No evidence of renal calculi. No evidence of hydronephrosis. No renal mass or cyst identified. ASCITES: None seen. ABDOMINAL AORTA AND IVC: Visualized portions normal caliber. IMPRESSION: 1. Status post cholecystectomy. No biliary ductal dilatation. 2. Hepatic steatosis with focal fatty sparing adjacent to the gallbladder fossa. DATA REPOSITORY:
[2022-01-09] MEDS: traZODone 100 MG TAB PO (00:02)
[2022-01-09] MEDS: Ketorolac 15 MG/ML VIAL IVP ×2 (02:35→11:33)
[2022-01-09] MEDS: DEXTROSE 5%-0.45% SALINE 1,000 ML 125 ML IV ×2 (03:35→11:28)
[2022-01-09] MEDS: PIPERACILLIN/TAZO 3.375 GM in Normal Saline 50 ML IVPB ×3 (04:55→21:50)
[2022-01-09] MEDS: ACETAMINOPHEN 1,000 MG/100 ML BTL 400 MG IVPB ×2 (05:09→15:31)
[2022-01-09 06:25] LABS: Abs Immature Grans 0.08 10^3/uL (0.0-0.06); Absolute Basophil Count 0.04 10^3/uL (0.0-0.2); Absolute Eosinophil Count 0.24 10^3/uL (0.0-0.7); Absolute Lymphocyte Count 1.52 10^3/uL (1.2-3.4); Absolute Monocyte Count 0.73 10^3/uL (0.1-0.8); Absolute Neutrophil Count 8.16 10^3/uL (1.2-6.7); Basophils % 0.4; Eosinophils % 2.2; Immature Grans % 0.7; Lymphocytes % 14.1; MCH 37.9 pg (27.0-33.0); MCHC 35.6 % (32.0-36.0); MCV 107 fL (80-95); MPV 10.8 fL (8.0-11.0); Monocytes % 6.8; Neutrophils % 75.8; RBC 1.82 10^6/uL (3.93-5.22); RDW-SD 56.1 fL; WBC 10.77 10^3/uL (4.4-10.8)
[2022-01-09 06:35] LABS: HCT 19.4 % (36.0-46.0)
[2022-01-09 06:36] LABS: HGB 6.9 g/dL (11.2-15.7)
[2022-01-09 06:48] LABS: Diff Comment Diff Reviewed; Platelet Count 265 10^3/uL (130-400)
[2022-01-09 06:49] LABS: Anisocytosis 2+; Hypochromasia 2+; Macrocytosis 2+; Polychromasia Present
[2022-01-09] MEDS: Normal Saline Flush 10 ML SYR IVP ×3 (09:01→18:41)
[2022-01-09] MEDS: Rizatriptan 10 MG TAB PO (09:01)
[2022-01-09] MEDS: FAMOTIDINE 20 MG in Normal Saline 100 ML 400 MG IVPB ×2 (09:01→20:45)
--- NOTE | 2022-01-09 09:01 | PDOC.CMPRO ---
- If Service Date Differs Date of service: 01/09/22 Time of Service: 09:01 Care Management Progress Note S/O:Eli was lying in bed when CM met with her. She reported that she still has a migraine. The one she had yesterday improved somewhat but she shared that she has another one today because she is still NPO. Eli also stated that she continues to experience abdominal pain, although that seems to be improving. She is receiving 2 units of blood today because her H&H has dropped to 10/27/18.4. Eli is also having a portable abdominal ultrasound as her ALT and bilirubin are elevated and she is clinically jaundiced. A: Eli isd a 61 year old woman admitted with diverticulitis on 01/07/22 P:Eli will likely be discharged home with no new services. She will follow up with her community providers and plan of care and transport with family. CM will follow and support discharge planning needs.
--- NOTE | 2022-01-09 09:24 | W.PM.PROGNOT ---
Date of Service Date of service: 01/09/22 Time of Service: 09:25 Assessment and Plan Assessment and plan (1) Acute diverticulitis: Status: Acute Assessment and plan: Acute diverticulitis. Patient describes having been treated for a bout last year, seen in the ER 03/2021. She states she had a follow up EGD and Colonoscopy with Dr. Guy, which showed healing from that episode. Patient appears jaundice today, which patient states occurred during her last episode as well. (She is s/p cholecystectomy) Patient is exquisitely tender with palpation of her abdomen. However, she reassures this provider this is an improvement compared to yesterday. Continue IV Zosyn NPO Leukocytosis has resolved Ambulation and activity OOB as tolerated. Continue pulmonary toilet (2) Leukocytosis: Status: Acute (3) Chronic migraine without aura, intractable, without status migrainosus: Status: Acute (4) Chronic anemia: Status: Acute Assessment and plan: iron studies are normal Subjective Subjective Interval history since last seen: Arrive with patient in bed. She states that she is exhausted and has not been able to rest. She expresses that her abdominal pain has improved since admission. She also reports (+) liquid BMs Exam Const General: cooperative, healthy appearing and comfortable Orientation: alert and oriented x3 Resp Effort & Inspection: normal respiratory effort, no audible wheezes and no cough GI Inspection: normal to inspection Palpation: soft, guarding and tender Skin General skin exam: jaundice Objective Last Vital Signs Temp 36.3 C L 01/09/22 08:23 Pulse 62 01/09/22 08:23 Resp 18 01/09/22 08:23 BP 132/70 01/09/22 08:23 Pulse Ox 98 01/09/22 08:23 Laboratory Results - last 24 hr 01/08/22 01/08/22 01/08/22 05:50 05:50 05:50 WBC RBC Hgb Hct MCV MCH MCHC RDW Plt Count MPV Immature Gran % Neutrophils % Lymphocytes % Monocytes % Eosinophils % Basophils % Nucleated RBC % Absolute Neutrophils Absolute Lymphocytes Absolute Monocytes Absolute Eosinophils Absolute Basophils RBC Morphology Polychromasia Hypochromasia Anisocytosis Macrocytosis Iron 61 TIBC 271 Transferrin % Sat 23 Ferritin 486 H Add-On Test Request DONE Patient ABO/Rh Antibody Screen Crossmatch 01/09/22 01/09/22 01/09/22 05:25 05:35 07:26 WBC 10.77 RBC 1.82 L Hgb 6.9 L* Hct 19.4 L* MCV 107 H D MCH 37.9 H MCHC 35.6 D RDW 22.0 H Plt Count 265 Cancelled MPV 10.8 Immature Gran % 0.7 Neutrophils % 75.8 Lymphocytes % 14.1 Monocytes % 6.8 Eosinophils % 2.2 Basophils % 0.4 Nucleated RBC % 0.0 Absolute Neutrophils 8.16 H Absolute Lymphocytes 1.52 Absolute Monocytes 0.73 Absolute Eosinophils 0.24 Absolute Basophils 0.04 RBC Morphology See Below Polychromasia Present Hypochromasia 2+ Anisocytosis 2+ Macrocytosis 2+ Iron TIBC Transferrin % Sat Ferritin Add-On Test Request Patient ABO/Rh O Positive Antibody Screen NEGATIVE Crossmatch See Detail
[2022-01-09 09:47] LABS: ALT 73 U/L (14-59); AST 30 U/L (15-37); Albumin 3.1 g/dL (3.4-5.0); Alkaline Phosphatase 84 U/L (46-116); Anion Gap 9.4 mmol/L (3-11); BUN 11 mg/dL (7-18); Bilirubin, Total 5.2 mg/dL (0.2-1.0); CO2 23.6 mmol/L (21.0-32.0); CREATININE 0.9 mg/dL (0.55-1.02); Chloride 112 mmol/L (98-107); Glucose 112 mg/dL (74-106); Potassium 3.5 mmol/L (3.5-5.1); Sodium 145 mmol/L (136-145); Total Protein 5.7 g/dL (6.4-8.2)
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
[2022-01-09 16:45] LABS: Amylase 38 U/L (25-115); GGT 62 U/L (5-55); Lipase 123 U/L (73-393); TSH (W/Ref FT4) 4.88 uIU/mL (0.36-3.74)
[2022-01-09 17:08] LABS: FREE T4 1.09 ng/dL (0.76-1.46)
[2022-01-09 17:46] LABS: Vitamin B12 1500 pg/mL (193-986)
[2022-01-09] MEDS: DEXTROSE 5%-0.45% SALINE 1,000 ML 80 ML IV (20:29)
[2022-01-09 22:18] LABS: HCT 28.8 % (36.0-46.0); HGB 10.1 g/dL (11.2-15.7)
[2022-01-09 22:29] LABS: Prothrombin Time 10.5 sec (9.3-11.0)
[2022-01-09 22:33] LABS: LDH 210 U/L (81-234)
[2022-01-09 22:34] LABS: Bilirubin, Direct 0.5 mg/dL (0.0-0.2); Bilirubin, Total 6.5 mg/dL (0.2-1.0)
[2022-01-09 23:08] LABS: C Diff PCR Negative (Negative)
[2022-01-09 23:17] LABS: Folate > 20.0 ng/mL (8.6-20.0)
[2022-01-10] MEDS: PIPERACILLIN/TAZO 3.375 GM in Normal Saline 50 ML IVPB ×3 (04:30→21:55)
[2022-01-10 06:14] LABS: Abs Immature Grans 0.11 10^3/uL (0.0-0.06); Absolute Basophil Count 0.05 10^3/uL (0.0-0.2); Absolute Eosinophil Count 0.34 10^3/uL (0.0-0.7); Absolute Lymphocyte Count 1.83 10^3/uL (1.2-3.4); Absolute Monocyte Count 0.79 10^3/uL (0.1-0.8); Absolute Neutrophil Count 8.71 10^3/uL (1.2-6.7); Basophils % 0.4; Eosinophils % 2.9; HCT 27.4 % (36.0-46.0); HGB 9.6 g/dL (11.2-15.7); Immature Grans % 0.9; Lymphocytes % 15.5; MCH 34.4 pg (27.0-33.0); MCV 98 fL (80-95); MPV 10.4 fL (8.0-11.0); Monocytes % 6.7; Neutrophils % 73.6; Platelet Count 272 10^3/uL (130-400); RBC 2.79 10^6/uL (3.93-5.22); RDW 20.8 % (11.7-14.6); RDW-SD 56.6 fL; WBC 11.83 10^3/uL (4.4-10.8)
[2022-01-10 07:04] LABS: Anisocytosis 2+; Diff Comment RBC Morph Reviewed
[2022-01-10] MEDS: Normal Saline Flush 10 ML SYR IVP (07:51)
[2022-01-10] MEDS: FAMOTIDINE 20 MG in Normal Saline 100 ML 400 MG IVPB ×2 (07:51→21:12)
[2022-01-10 08:06] VITALS: BP 125/56; PULSE 91; RESP 18; TEMP 37.3; O2SAT 100
--- NOTE | 2022-01-10 09:18 | W.PM.PROGNOT ---
Date of Service Date of service: 01/10/22 Time of Service: 09:18 Assessment and Plan Assessment and plan (1) Acute diverticulitis: Status: Acute Assessment and plan: Acute diverticulitis. Patient continues to appear jaundice Patient is exquisitely tender with palpation of her abdomen. However, she reassures this provider this is an improvement compared to yesterday. Continue IV Zosyn NPO Leukocytosis has resolved Ambulation and activity OOB as tolerated. Continue pulmonary toilet (2) Leukocytosis: Status: Acute (3) Chronic migraine without aura, intractable, without status migrainosus: Status: Acute (4) Chronic anemia: Status: Acute Assessment and plan: iron studies are normal Subjective Subjective Interval history since last seen: Patient is feeling significant improvement today. She expresses her largest complaint this morning is fatigue. She has had 2 semi-formed stools. Denies having any nausea or vomiting. She describes her abdominal pain as significantly improved. Exam Const General: cooperative, healthy appearing and comfortable Orientation: alert and oriented x3 Resp Effort & Inspection: normal respiratory effort, no audible wheezes and no cough GI Inspection: normal to inspection Palpation: soft, no guarding and tender Objective Last Vital Signs Temp 37.3 C 01/10/22 08:06 Pulse 91 H 01/10/22 08:06 Resp 18 01/10/22 08:06 BP 125/56 L 01/10/22 08:06 Pulse Ox 100 01/10/22 08:06 Laboratory Results - last 24 hr 01/09/22 01/09/22 01/09/22 05:25 05:25 07:26 WBC RBC Hgb Hct MCV MCH MCHC RDW Plt Count MPV Immature Gran % Neutrophils % Lymphocytes % Monocytes % Eosinophils % Basophils % Nucleated RBC % Absolute Neutrophils Absolute Lymphocytes Absolute Monocytes Absolute Eosinophils Absolute Basophils RBC Morphology Anisocytosis PT INR Sodium 145 Potassium 3.5 Chloride 112 H Carbon Dioxide 23.6 Anion Gap 9.4 BUN 11 Creatinine 0.9 Estimated GFR/1.73 m2 >= 60.00 Glucose 112 H Calcium 8.0 L Total Bilirubin 5.2 H Conjugated Bilirubin GGT 62 H AST 30 ALT 73 H Alkaline Phosphatase 84 Lactate Dehydrogenase Total Protein 5.7 L Albumin 3.1 L Amylase 38 Lipase 123 Vitamin B12 1500 H Folate TSH 4.88 H Free T4 1.09 Stl C.difficile Tox PCR Add-On Test Request Patient ABO/Rh O Positive Antibody Screen NEGATIVE Crossmatch See Detail 01/09/22 01/09/22 01/09/22 16:13 16:18 22:04 WBC RBC Hgb Hct MCV MCH MCHC RDW Plt Count MPV Immature Gran % Neutrophils % Lymphocytes % Monocytes % Eosinophils % Basophils % Nucleated RBC % Absolute Neutrophils Absolute Lymphocytes Absolute Monocytes Absolute Eosinophils Absolute Basophils RBC Morphology Anisocytosis PT INR Sodium Potassium Chloride Carbon Dioxide Anion Gap BUN Creatinine Estimated GFR/1.73 m2 Glucose Calcium Total Bilirubin Conjugated Bilirubin GGT AST ALT Alkaline Phosphatase Lactate Dehydrogenase 210 Total Protein Albumin Amylase Lipase Vitamin B12 Folate Cancelled TSH Free T4 Stl C.difficile Tox PCR Add-On Test Request TNP Patient ABO/Rh Antibody Screen Crossmatch 01/09/22 01/09/22 01/09/22 22:04 22:04 22:04 WBC RBC Hgb 10.1 L D Hct 28.8 L MCV MCH MCHC RDW Plt Count MPV Immature Gran % Neutrophils % Lymphocytes % Monocytes % Eosinophils % Basophils % Nucleated RBC % Absolute Neutrophils Absolute Lymphocytes Absolute Monocytes Absolute Eosinophils Absolute Basophils RBC Morphology Anisocytosis PT 10.5 INR 1.0 Sodium Potassium Chloride Carbon Dioxide Anion Gap BUN Creatinine Estimated GFR/1.73 m2 Glucose Calcium Total Bilirubin 6.5 H Conjugated Bilirubin 0.5 H GGT AST ALT Alkaline Phosphatase Lactate Dehydrogenase Total Protein Albumin Amylase Lipase Vitamin B12 Folate > 20.0 H TSH Free T4 Stl C.difficile Tox PCR Add-On Test Request Patient ABO/Rh Antibody Screen Crossmatch 01/09/22 01/09/22 01/09/22 22:19 Unknown Unknown WBC RBC Hgb Hct MCV MCH MCHC RDW Plt Count MPV Immature Gran % Neutrophils % Lymphocytes % Monocytes % Eosinophils % Basophils % Nucleated RBC % Absolute Neutrophils Absolute Lymphocytes Absolute Monocytes Absolute Eosinophils Absolute Basophils RBC Morphology Anisocytosis PT INR Sodium Potassium Chloride Carbon Dioxide Anion Gap BUN Creatinine Estimated GFR/1.73 m2 Glucose Calcium Total Bilirubin Conjugated Bilirubin GGT AST ALT Alkaline Phosphatase Lactate Dehydrogenase Total Protein Albumin Amylase Lipase Vitamin B12 Folate TSH Free T4 Stl C.difficile Tox PCR Negative Add-On Test Request Cancelled Cancelled Patient ABO/Rh Antibody Screen Crossmatch 01/09/22 01/10/22 Unknown 05:45 WBC 11.83 H RBC 2.79 L Hgb 9.6 L Hct 27.4 L MCV 98 H D MCH 34.4 H MCHC 35.0 RDW 20.8 H Plt Count 272 MPV 10.4 Immature Gran % 0.9 Neutrophils % 73.6 Lymphocytes % 15.5 Monocytes % 6.7 Eosinophils % 2.9 Basophils % 0.4 Nucleated RBC % 0.0 Absolute Neutrophils 8.71 H Absolute Lymphocytes 1.83 Absolute Monocytes 0.79 Absolute Eosinophils 0.34 Absolute Basophils 0.05 RBC Morphology See Below Anisocytosis 2+ PT INR Sodium Potassium Chloride Carbon Dioxide Anion Gap BUN Creatinine Estimated GFR/1.73 m2 Glucose Calcium Total Bilirubin Conjugated Bilirubin GGT AST ALT Alkaline Phosphatase Lactate Dehydrogenase Total Protein Albumin Amylase Lipase Vitamin B12 Folate TSH Free T4 Stl C.difficile Tox PCR Add-On Test Request Cancelled Patient ABO/Rh Antibody Screen Crossmatch
[2022-01-10] MEDS: DEXTROSE 5%-0.45% SALINE 1,000 ML 80 ML IV (09:28)
--- NOTE | 2022-01-10 10:42 | PDOC.CMPRO ---
- If Service Date Differs Date of service: 01/10/22 Time of Service: 10:42 Care Management Progress Note S/O: Eli remains acute, under the care of surgical services with hospitalist consult, no change to overall plan. CM continues to follow. A: Eli isd a 61 year old woman admitted with diverticulitis on 01/07/22 P: Eli will likely be discharged home with no new services. She will follow up with her community providers and plan of care and transport with family. CM will follow and support discharge planning needs.
[2022-01-10 15:35] VITALS: BP 123/83; PULSE 63; RESP 18; TEMP 37.4; O2SAT 97
[2022-01-10] MEDS: Rizatriptan 10 MG TAB PO (15:49)
--- NOTE | 2022-01-10 18:49 | W.PM.PROGNOT ---
Date of Service Date of service: 01/10/22 Time of Service: 17:50 Assessment and Plan Assessment and plan (1) Painless jaundice: Status: Acute Assessment and plan: Unconjugated hyperbilirubinemia. Hemolysis workup is still pending, but there are no schistocytes on the smear, making hemolysis less likely. 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 Await haptoglobin, CA 19-9. hepatitis panel P. The patient does have evidence of hepatic steatosis and fatty liver on ultrasound which could be partially responsible for LFT abnormalities, but above workup is warranted. This is not a new issue and I think that the workup could be completed as outpatient. (2) Acute on chronic anemia: Status: Acute Assessment and plan: H/H improved as expected. Iron studies normal. B12/folate not low. There is no obvious hemolysis on CBC with diff . Hemolysis workup is pending. Continue to monitor H/H. Hospitalists will continue to follow with you. Subjective Subjective Interval history since last seen: Feels better today. Tolerated PO. NO n/v. Diarrhea is slowing down. Denies CP, SOB. COncerned about her rising bilirubin. Exam Narrative Exam Narrative: General: Pleasant anxious female who looks less jaundiced, A&Ox3, NAD HEENT: Atraumatic, normocephalic, EOMI, MMM, scleral icterus less obvious Cardiovascular: RRR, no m/r/g Lungs: CTAB Gastrointestinal: soft, nontender, + BS Extremities: no edema BLEs Objective Last Vital Signs Temp 37.4 C 01/10/22 15:35 Pulse 63 01/10/22 15:35 Resp 18 01/10/22 15:35 BP 123/83 01/10/22 15:35 Pulse Ox 97 01/10/22 15:35 Laboratory Results - last 24 hr 01/09/22 01/09/22 01/09/22 16:18 22:04 22:04 WBC RBC Hgb Hct MCV MCH MCHC RDW Plt Count MPV Immature Gran % Neutrophils % Lymphocytes % Monocytes % Eosinophils % Basophils % Nucleated RBC % Absolute Neutrophils Absolute Lymphocytes Absolute Monocytes Absolute Eosinophils Absolute Basophils RBC Morphology Anisocytosis PT 10.5 INR 1.0 Total Bilirubin Conjugated Bilirubin Lactate Dehydrogenase 210 Folate Cancelled Stl C.difficile Tox PCR 01/09/22 01/09/22 01/09/22 22:04 22:04 22:19 WBC RBC Hgb 10.1 L D Hct 28.8 L MCV MCH MCHC RDW Plt Count MPV Immature Gran % Neutrophils % Lymphocytes % Monocytes % Eosinophils % Basophils % Nucleated RBC % Absolute Neutrophils Absolute Lymphocytes Absolute Monocytes Absolute Eosinophils Absolute Basophils RBC Morphology Anisocytosis PT INR Total Bilirubin 6.5 H Conjugated Bilirubin 0.5 H Lactate Dehydrogenase Folate > 20.0 H Stl C.difficile Tox PCR Negative 01/10/22 05:45 WBC 11.83 H RBC 2.79 L Hgb 9.6 L Hct 27.4 L MCV 98 H D MCH 34.4 H MCHC 35.0 RDW 20.8 H Plt Count 272 MPV 10.4 Immature Gran % 0.9 Neutrophils % 73.6 Lymphocytes % 15.5 Monocytes % 6.7 Eosinophils % 2.9 Basophils % 0.4 Nucleated RBC % 0.0 Absolute Neutrophils 8.71 H Absolute Lymphocytes 1.83 Absolute Monocytes 0.79 Absolute Eosinophils 0.34 Absolute Basophils 0.05 RBC Morphology See Below Anisocytosis 2+ PT INR Total Bilirubin Conjugated Bilirubin Lactate Dehydrogenase Folate Stl C.difficile Tox PCR
[2022-01-10 19:46] LABS: Lab Add On Test DONE
[2022-01-10 23:03] VITALS: BP 156/68; PULSE 74; RESP 20; TEMP 37.5; O2SAT 98
--- NOTE | 2022-01-11 | DI.MRI_ITS ---
Exam(s) MR ABDOMEN WO EXAM: MR ABDOMEN WO CLINICAL HISTORY: MRCP: painless jaundice TECHNIQUE: Multiplanar multisequence MRI was performed without IV contrast. MRCP also performed COMPARISON: CT CT ABDOMEN PELVIS W from 03/25/[address] ABDOMEN PELVIS W from 04/27/[address] ABDOMEN PELVIS W from 01/07/2022 FINDINGS: VISUALIZED LUNG BASES: No pleural effusions evident. There is no ascites evident. LIVER: Hepatic steatosis noted. There is a well-defined 1.6 by 1.2 cm T2 bright well-defined slightl y lobulated lesion in the right hepatic lobe which is probably a benign hemangioma given its appearan ce on the prior CT scans. No new significant additional hepatic lesions with the exception of a smal ler cyst in the caudate lobe again noted. Liver size is normal. BILIARY: Gallbladder is again noted be surgically absent. CBD is not dilated.However, the MRCP image s reveal what appears to be a focal stenosis-stricture higher up in the biliary tree at the junction of the right and left hepatic ducts. PANCREAS: There is no evidence of pancreatic head mass nor dilatation of the pancreatic duct.However, there is a tiny 3 millimeter cyst in the anterior aspect of the pancreatic tail, best evident on fat -sat T2 images. SPLEEN: Spleen is not enlarged and there are no intrasplenic lesions.Splenic and portal veins are pat ent ADRENALS: There are no significant adrenal masses. KIDNEYS: Prominent cyst in the left kidney extending from the hilum to the lateral cortex again noted measuring 3.9 cm by 2.7 cm by 3.2 cm, not increased in size from prior CT scans. No solid renal mas ses. There is a tiny 3 millimeters cyst in the right kidney. No hydronephrosis on either side.No cy sts evident. ABDOMINAL AORTA: Not enlarged and there is no significant para-aortic adenopathy. ANTERIOR ABDOMINAL WALL/GI: There is no evidence of significant anterior abdominal wall hernia in the field of view of this study.Is no evidence of obvious bowel obstruction. OSSEOUS: There are no lytic osseous lesions in the field of view of this study. IMPRESSION: 1. The gallbladder surgically absent. No evidence of pancreatic head mass nor dilatation of the panc reatic duct. 2. However, there is a suggestion of a stricture at the junction of the right and left hepatic lobes, possibly Klatskin-type course. Correlation with blood work recommended. Consider ERCP. 3. There is a 2-3 millimeter cyst in the anterior aspect of the tail the pancreas, either a cyst or small intra pancreatic cystic neoplasm. Require periodic follow-up. 4. There is a 16 x 12 millimeter finding in the right hepatic lobe which is most probably a benign h emangioma and was evident on prior CT scans. DATA REPOSITORY:
[2022-01-11] MEDS: DEXTROSE 5%-0.45% SALINE 1,000 ML 80 ML IV (03:00)
[2022-01-11] MEDS: PIPERACILLIN/TAZO 3.375 GM in Normal Saline 50 ML IVPB (05:35)
[2022-01-11 06:31] LABS: ALT 58 U/L (14-59); AST 28 U/L (15-37); Albumin 3.2 g/dL (3.4-5.0); Alkaline Phosphatase 95 U/L (46-116); Bilirubin, Direct 0.2 mg/dL (0.0-0.2); Bilirubin, Total 3.8 mg/dL (0.2-1.0); Total Protein 6.5 g/dL (6.4-8.2)
[2022-01-11 06:40] LABS: Abs Immature Grans 0.08 10^3/uL (0.0-0.06); Absolute Basophil Count 0.05 10^3/uL (0.0-0.2); Absolute Eosinophil Count 0.37 10^3/uL (0.0-0.7); Absolute Neutrophil Count 9.94 10^3/uL (1.2-6.7); Basophils % 0.4; Eosinophils % 2.8; HCT 29.6 % (36.0-46.0); Immature Grans % 0.6; Lymphocytes % 14.1; MCH 30.7 pg (27.0-33.0); MCHC 33.8 % (32.0-36.0); MCV 91 fL (80-95); MPV 10.7 fL (8.0-11.0); Monocytes % 7.4; Neutrophils % 74.7; Platelet Count 305 10^3/uL (130-400); RBC 3.26 10^6/uL (3.93-5.22); RDW 16.3 % (11.7-14.6); RDW-SD 53.6 fL
[2022-01-11 06:41] LABS: Absolute Lymphocyte Count 1.88 10^3/uL (1.2-3.4); Absolute Monocyte Count 0.98 10^3/uL (0.1-0.8)
[2022-01-11] MEDS: Rizatriptan 10 MG TAB PO ×2 (08:12→20:30)
[2022-01-11 08:30] VITALS: BP 152/89; PULSE 59; RESP 19; TEMP 37.5; O2SAT 96
[2022-01-11 08:56] LABS: Bilirubin Negative (Negative); Blood Trace-intact (Negative); Clarity Clear (Clear); Glucose Negative (Negative); Ketones Negative (Negative); Leukocyte Esterase Negative (Negative); Nitrite Negative (Negative); Urobilinogen 0.2 EU/dL (Up TO 0.2)
[2022-01-11 09:04] LABS: Bacteria Rare HPF (Negative); C & S Indicated? No; Casts Negative LPF (Negative); Crystals Negative HPF (Negative); Epithelial Cells Negative HPF (Negative); Mucus Negative (Negative); Other Cells Negative (Negative); RBC 0-2 HPF (0-2); WBC Negative HPF (0-5)
[2022-01-11] MEDS: Normal Saline Flush 10 ML SYR IVP ×2 (09:45→14:12)
[2022-01-11 09:49] LABS: Haptoglobin 53 mg/dL (32-197)
[2022-01-11 09:56] LABS: CA 19-9 6 U/mL (<35)
[2022-01-11] MEDS: Famotidine 20 MG TAB PO ×2 (10:50→20:30)
--- NOTE | 2022-01-11 10:56 | W.PM.PROGNOT ---
Date of Service Date of service: 01/11/22 Time of Service: 10:56 Assessment and Plan Assessment and plan (1) Acute diverticulitis: Status: Acute Assessment and plan: Acute diverticulitis. Jaundice appears to be improving. Bilirubin is decreasing. No abdominal pain Continue IV Zosyn Tolerating low fiber diet Leukocytosis has started to increase Ambulation and activity OOB as tolerated. Continue pulmonary toilet Addendum by Pedro Winter: Her pain is much better controlled today, and she has been comfortable with the epidural catheter turned off. She is tolerating some diet, and the stoma is now producing stool. She still has a little bit of a white blood cell count today. Her abdomen is soft, mildly tender, and nondistended. The back looks fine. The underlying tissue looks healthy and clean. I think we can move her out of the ICU to regular floor. We will recheck a white blood cell count tomorrow. (2) Leukocytosis: Status: Acute (3) Chronic migraine without aura, intractable, without status migrainosus: Status: Acute (4) Chronic anemia: Status: Acute Assessment and plan: iron studies are normal Subjective Subjective Interval history since last seen: Patient expresses that continues to feel better. She denies any abdominal pain, nausea or vomiting. She has tolerated a low fiber diet so far. Exam Const General: cooperative, healthy appearing and comfortable Orientation: alert and oriented x3 Resp Effort & Inspection: normal respiratory effort, no audible wheezes and no cough GI Inspection: normal to inspection Palpation: soft, no guarding and nontender Objective Last Vital Signs Temp 37.5 C 01/11/22 08:30 Pulse 59 L 01/11/22 08:30 Resp 19 01/11/22 08:30 BP 152/89 H 01/11/22 08:30 Pulse Ox 96 01/11/22 08:30 Laboratory Results - last 24 hr 01/09/22 01/09/22 01/10/22 22:04 22:04 Unknown WBC RBC Hgb Hct MCV MCH MCHC RDW Plt Count MPV Immature Gran % Neutrophils % Lymphocytes % Monocytes % Eosinophils % Basophils % Nucleated RBC % Absolute Neutrophils Absolute Lymphocytes Absolute Monocytes Absolute Eosinophils Absolute Basophils Haptoglobin 53 Total Bilirubin Conjugated Bilirubin AST ALT Alkaline Phosphatase Total Protein Albumin CA 19-9 Antigen 6 Urine Color Urine Clarity Urine pH Ur Specific [place] Urine Protein Urine Ketones Urine Blood Urine Nitrite Urine Bilirubin Urine Urobilinogen Ur Leukocyte Esterase Urine RBC Urine WBC Ur Epithelial Cells Urine Crystals Urine Bacteria Urine Casts Urine Mucus Urine Other Ur Culture Indicated? Urine Glucose Add-On Test Request DONE 01/11/22 01/11/22 01/11/22 05:09 05:09 08:30 WBC 13.30 H RBC 3.26 L Hgb 10.0 L Hct 29.6 L MCV 91 D MCH 30.7 MCHC 33.8 RDW 16.3 H Plt Count 305 MPV 10.7 Immature Gran % 0.6 Neutrophils % 74.7 Lymphocytes % 14.1 Monocytes % 7.4 Eosinophils % 2.8 Basophils % 0.4 Nucleated RBC % 0.0 Absolute Neutrophils 9.94 H Absolute Lymphocytes 1.88 Absolute Monocytes 0.98 H Absolute Eosinophils 0.37 Absolute Basophils 0.05 Haptoglobin Total Bilirubin 3.8 H Conjugated Bilirubin 0.2 AST 28 ALT 58 Alkaline Phosphatase 95 Total Protein 6.5 Albumin 3.2 L CA 19-9 Antigen Urine Color Yellow Urine Clarity Clear Urine pH 7.0 Ur Specific [place] 1.020 Urine Protein Negative Urine Ketones Negative Urine Blood Trace-intact H Urine Nitrite Negative Urine Bilirubin Negative Urine Urobilinogen 0.2 Ur Leukocyte Esterase Negative Urine RBC 0-2 Urine WBC Negative Ur Epithelial Cells Negative Urine Crystals Negative Urine Bacteria Rare Urine Casts Negative Urine Mucus Negative Urine Other Negative Ur Culture Indicated? No Urine Glucose Negative Add-On Test Request
[2022-01-11 12:30] VITALS: BP 159/77; PULSE 55; RESP 18; TEMP 37.4; O2SAT 100
[2022-01-11] MEDS: Normal Saline Flush 10 ML SYR (14:11)
[2022-01-11] MEDS: LORazepam 20 MG/10 ML VIAL IVP (14:11)
--- NOTE | 2022-01-11 14:39 | PDOC.CMPRO ---
- If Service Date Differs Date of service: 01/11/22 Time of Service: 14:39 Care Management Progress Note Per MD: Acute diverticulitis. Jaundice appears to be improving. Bilirubin is decreasing. No abdominal pain Continue IV Zosyn Tolerating low fiber diet Leukocytosis has started to increase Ambulation and activity OOB as tolerated. Continue pulmonary toilet S/O: Eli remains acute, under the care of surgical services with hospitalist consult, no change to overall plan. CM continues to follow. A: Eli is a 61 year old woman admitted with diverticulitis on 01/07/22 P: Eli will likely be discharged home with no new services. She will follow up with her community providers and plan of care and transport with family. CM will follow and support discharge planning needs.
[2022-01-11 16:10] VITALS: BP 168/89; PULSE 64; RESP 19; TEMP 37.3; O2SAT 95
--- NOTE | 2022-01-11 17:16 | CHAPLAIN ---
Eli was up in a chair waiting for her dinner to arrive when I visited. She had a visitor with her. Eli was admitted on 01/07 and hadn't been allowed to eat until yesterday because of her diverticulitis. She said the staff had a difficult time getting an IV in and it took four tries before they were successful. She also had another scan today and waiting for the results. She previous attended [employer] with her mom, but hasn't attended in a few years. She said she has a prayer [id number] praying for her. She also asked that I pray with her and we did.
--- NOTE | 2022-01-11 19:07 | PGE_ITS ---
Date of Service Date of service: 01/11/22 Time of Service: 17:00 Assessment and Plan Assessment and plan (1) Painless jaundice: Status: Acute Assessment and plan: Unconjugated hyperbilirubinemia. No evidence of hemolysis by labs. MRCP with a hepatic stricture as well as with a cyst in the tail of the pancreas. Discussed with [facility]: ERCP is being planned for tomorrow am. NPO after midnight. Hepatitis panel P. (2) Acute on chronic anemia: Status: Acute Assessment and plan: H/H stable Iron studies normal. B12/folate not low. There is no obvious hemolysis. Hemolysis workup is pending. Continue to monitor H/H. Hospitalists will continue to follow with you. Discussed with Dr Winter and [facility]. Subjective Subjective Interval history since last seen: Ms Brasher feels better today. She denies dizziness, chest pain, shortness of breath, nausea. SHe is tolerating a diet. She is in agreement with going to an ERCP to [facility] tomorrow. Exam Narrative Exam Narrative: General: Pleasant anxious female who looks even less jaundiced, A&Ox3, tearful HEENT: Atraumatic, normocephalic, EOMI, MMM, I do not appreciate scleral icterus today Cardiovascular: RRR, no m/r/g Lungs: CTAB Gastrointestinal: soft, nontender, + BS Extremities: no edema BLEs Objective Last Vital Signs Temp 37.3 C 01/11/22 16:10 Pulse 64 01/11/22 16:10 Resp 19 01/11/22 16:10 BP 168/89 H 01/11/22 16:10 Pulse Ox 95 01/11/22 16:10 Laboratory Results - last 24 hr 01/09/22 01/09/22 01/10/22 22:04 22:04 Unknown WBC RBC Hgb Hct MCV MCH MCHC RDW Plt Count MPV Immature Gran % Neutrophils % Lymphocytes % Monocytes % Eosinophils % Basophils % Nucleated RBC % Absolute Neutrophils Absolute Lymphocytes Absolute Monocytes Absolute Eosinophils Absolute Basophils Haptoglobin 53 Total Bilirubin Conjugated Bilirubin AST ALT Alkaline Phosphatase Total Protein Albumin CA 19-9 Antigen 6 Urine Color Urine Clarity Urine pH Ur Specific [place] Urine Protein Urine Ketones Urine Blood Urine Nitrite Urine Bilirubin Urine Urobilinogen Ur Leukocyte Esterase Urine RBC Urine WBC Ur Epithelial Cells Urine Crystals Urine Bacteria Urine Casts Urine Mucus Urine Other Ur Culture Indicated? Urine Glucose Add-On Test Request DONE 01/11/22 01/11/22 01/11/22 05:09 05:09 08:30 WBC 13.30 H RBC 3.26 L Hgb 10.0 L Hct 29.6 L MCV 91 D MCH 30.7 MCHC 33.8 RDW 16.3 H Plt Count 305 MPV 10.7 Immature Gran % 0.6 Neutrophils % 74.7 Lymphocytes % 14.1 Monocytes % 7.4 Eosinophils % 2.8 Basophils % 0.4 Nucleated RBC % 0.0 Absolute Neutrophils 9.94 H Absolute Lymphocytes 1.88 Absolute Monocytes 0.98 H Absolute Eosinophils 0.37 Absolute Basophils 0.05 Haptoglobin Total Bilirubin 3.8 H Conjugated Bilirubin 0.2 AST 28 ALT 58 Alkaline Phosphatase 95 Total Protein 6.5 Albumin 3.2 L CA 19-9 Antigen Urine Color Yellow Urine Clarity Clear Urine pH 7.0 Ur Specific [place] 1.020 Urine Protein Negative Urine Ketones Negative Urine Blood Trace-intact H Urine Nitrite Negative Urine Bilirubin Negative Urine Urobilinogen 0.2 Ur Leukocyte Esterase Negative Urine RBC 0-2 Urine WBC Negative Ur Epithelial Cells Negative Urine Crystals Negative Urine Bacteria Rare Urine Casts Negative Urine Mucus Negative Urine Other Negative Ur Culture Indicated? No Urine Glucose Negative Add-On Test Request Objective Narrative Objective Narrative: MRCP: 1. The gallbladder surgically absent.? No evidence of pancreatic head mass nor dilatation of the pancreatic duct. 2. However, there is a suggestion of a stricture at the junction of the right and left hepatic lobes, possibly [place]-type course.? Correlation with blood work recommended.? Consider ERCP. 3.? There is a 2-3 millimeter cyst in the anterior aspect of the tail the pancreas, either a cyst or small intra pancreatic cystic neoplasm.? Require periodic follow-up. 4.? There is a 16 x 12 millimeter finding in the right hepatic lobe which is most probably a benign hemangioma and was evident on prior CT scans.
[2022-01-11] MEDS: Amoxicillin 875/Clav. 125 TAB PO (20:30)
[2022-01-12 00:39] VITALS: BP 142/78; PULSE 64; RESP 18; TEMP 37.1; O2SAT 96
[2022-01-12 07:55] VITALS: PULSE 60; RESP 20; TEMP 35.9; O2SAT 97
[2022-01-12 07:56] VITALS: BP 130/90
[2022-01-12] MEDS: Amoxicillin 875/Clav. 125 TAB PO ×2 (08:06→19:58)
[2022-01-12] MEDS: Rizatriptan 10 MG TAB PO ×2 (08:06→19:58)
--- NOTE | 2022-01-12 08:22 | W.PM.PROGNOT ---
Date of Service Date of service: 01/12/22 Time of Service: : Assessment and Plan Assessment and plan (1) Acute diverticulitis: Status: Acute Assessment and plan: Acute diverticulitis. Jaundice is improving. No abdominal pain Patient has been switched to p.o. Augmentin Tolerating low fiber diet Ambulation and activity OOB as tolerated. Continue pulmonary toilet Awaiting callback from [facility], for possible ERCP later today. If unable to proceed with ERCP, could consider follow up as an out patient. Given her overall improvement and tolerating a low fiber diet. pt seen and examined. agree w/ above. [facility] is going to try to get her in for ERCP in am. If we cannot do, than will schedule as outpt. (2) Leukocytosis: Status: Acute (3) Chronic migraine without aura, intractable, without status migrainosus: Status: Acute (4) Chronic anemia: Status: Acute Assessment and plan: iron studies are normal Subjective Subjective Interval history since last seen: Arrived with patient resting in bed with an ice pack to her head. She states that she continues to be struggling with daily migraines. She denies having any abdominal pain, nausea or vomiting. Exam Const General: cooperative, healthy appearing and comfortable Orientation: alert and oriented x3 Resp Effort & Inspection: normal respiratory effort, no audible wheezes and no cough GI Inspection: normal to inspection Palpation: soft, no guarding and nontender Objective Last Vital Signs Temp 35.9 C L 01/12/22 07:55 Pulse 60 01/12/22 07:55 Resp 20 01/12/22 07:55 BP 142/78 H 01/12/22 00:39 Pulse Ox 97 01/12/22 07:55 Laboratory Results - last 24 hr 01/09/22 01/09/22 01/11/22 22:04 22:04 08:30 Haptoglobin 53 CA 19-9 Antigen 6 Urine Color Yellow Urine Clarity Clear Urine pH 7.0 Ur Specific [place] 1.020 Urine Protein Negative Urine Ketones Negative Urine Blood Trace-intact H Urine Nitrite Negative Urine Bilirubin Negative Urine Urobilinogen 0.2 Ur Leukocyte Esterase Negative Urine RBC 0-2 Urine WBC Negative Ur Epithelial Cells Negative Urine Crystals Negative Urine Bacteria Rare Urine Casts Negative Urine Mucus Negative Urine Other Negative Ur Culture Indicated? No Urine Glucose Negative
--- NOTE | 2022-01-12 10:35 | PDOC.CMPRO ---
- If Service Date Differs Date of service: 01/12/22 Time of Service: 10:35 Care Management Progress Note S/O: Eli was sitting up in a chair when CM met with her. She was smiling and looked much improved from earlier in the week. Eli had been kept NPO today as she was supposed to go to [facility] for a procedure (ERCP). When the procedure was cancelled she was able to eat. She is now on a regular diet and has been tolerating it well. She was told by Dr. Elliott that the procedure is now scheduled for tomorrow, but there is a possibility it could get cancelled again. Eli's main concern is that she has chronic, very severe, migraines which are triggered by not eating. She had a really bad one this morning, she reported, which had just subsided. In terms of abdominal pain, Eli stated that she is much improved. A: Eli is a 61 year old woman admitted with diverticulitis on 01/07/22 P: Eli is scheduled to have an ERCP at [facility] tomorrow. Eli will likely be discharged home with no new services after the procedure , likely the following day. She will follow up with her community providers and plan of care and transport with family. CM will follow and support discharge planning needs.
[2022-01-12 11:16] LABS: HBs Antibody, Qual Negative (See Note); HBs Antibody, Quant <3.1 mIU/mL (See Note); Hepatitis B Core Antibody Negative (Negative); Hepatitis B surface Ag Negative (Negative); Hepatitis C Ab w Rflx HCV PCR Negative (Negative)
--- NOTE | 2022-01-12 13:47 | CHAPLAIN ---
Eli was resting in bed when I visited. She had most of the lights off and an ice pack on her head. She's said she's not been able to eat since midnight last night, and that has giving her a headache. Eli said she was told yesterday that there is a spot on her pancreas that needs to be investigated and she was told she needs a procedure on her liver, to open it up more. She is scheduled to be transferred to [facility] later today for the procedure and then will return here for monitoring. Eli said it has been stressful waiting, not knowing when she'll be transported and what the results of all the tests are. She has been listening to Anabaptist music to help relax. She explained it as being told stressful news and then being told not to be stressed about it. I gave her a prayer shawl and will check in with her tomorrow.
[2022-01-12 15:42] VITALS: PULSE 68; RESP 16; TEMP 36.8; O2SAT 97
[2022-01-12 15:53] VITALS: BP 132/80
[2022-01-12] MEDS: Famotidine 20 MG TAB PO (19:58)
[2022-01-12 23:00] VITALS: BP 150/60; PULSE 63; RESP 16; TEMP 37.4; O2SAT 97
[2022-01-13] MEDS: Normal Saline Flush 10 ML SYR IVP ×3 (01:02→23:25)
[2022-01-13] MEDS: Lactated Ringers 1,000 ML 120 ML IV ×2 (01:03→09:00)
[2022-01-13] MEDS: LORazepam 0.5 MG TAB PO ×4 (06:45→22:29)
[2022-01-13 07:31] LABS: HCT 29.5 % (36.0-46.0); HGB 10.1 g/dL (11.2-15.7); MCH 30.9 pg (27.0-33.0); MCV 90 fL (80-95); MPV 10.4 fL (8.0-11.0); Platelet Count 357 10^3/uL (130-400); RBC 3.27 10^6/uL (3.93-5.22); RDW 15.3 % (11.7-14.6); RDW-SD 49.8 fL; WBC 14.63 10^3/uL (4.4-10.8)
[2022-01-13 07:32] LABS: MCHC 34.2 % (32.0-36.0)
[2022-01-13 07:36] VITALS: PULSE 61; RESP 16; TEMP 36.7; O2SAT 97
[2022-01-13] MEDS: Famotidine 20 MG TAB PO ×2 (08:01→20:25)
[2022-01-13] MEDS: Amoxicillin 875/Clav. 125 TAB PO ×2 (08:01→20:25)
[2022-01-13] MEDS: Rizatriptan 10 MG TAB PO (08:05)
--- NOTE | 2022-01-13 11:32 | PDOC.CMPRO ---
- If Service Date Differs Date of service: 01/13/22 Time of Service: 11:32 Care Management Progress Note S/O: Eli was transferred to [facility] for a down and back ERCP today. She is expected to return late in the day. Eli has been tolerating her low fiber diet well. She continues to experience migraine headaches and has been medicated for this. Per surgical staff, Eli is improving and may be ready for discharge soon with outpatient follow up. A: Eli is a 61 year old woman admitted with diverticulitis on 01/07/22 P: Eli is having an ERCP at [facility] today. She left at noon via EMS for a down and back procedure. Eli will likely be discharged home with no new services after the procedure , likely tomorrow. She will follow up with her community providers and plan of care and transport with family. CM will follow and support discharge planning needs.
--- NOTE | 2022-01-13 13:00 | W.PM.PROGNOT ---
Date of Service Date of service: 01/13/22 Time of Service: 11:30 Assessment and Plan Assessment and plan (1) Diverticulitis: Status: Chronic Assessment and plan: Generally, I think her diverticulitis is resolving. I do think she needs antibiotics, especially with the mild today. Hopefully, the ERCP will shed some light on to the nature of the hepatic duct stricturing. If she feels well afterwards, I can try to get her discharged this evening. Otherwise, we can see how she is doing in the morning Subjective Subjective Interval history since last seen: [facility] Her diet was resumed and she did well with no symptoms. Fortunately, she is leaving to go down for ERCP now. She had a mild increase in her white blood cell count overnight, but she has remained afebrile. Exam Const General: comfortable Orientation: awake and oriented x3 Resp Effort & Inspection: normal respiratory effort and able to speak in complete sentences Cardio Jugular venous pressure: no JVD Rate: regular rate GI Inspection: non-distended Palpation: soft, no guarding, no hernias and nontender Skin General skin exam: normal turgor Neuro General: patient alert, patient awake and patient oriented x3 Cognition: normal cognition Extrem Right lower extremity: no edema Left lower extremity: no edema Objective Last Vital Signs Temp 98.1 F 01/13/22 07:36 Pulse 61 01/13/22 07:36 Resp 16 01/13/22 07:36 BP 150/60 H 01/12/22 23:00 Pulse Ox 97 01/13/22 07:36 Laboratory Results - last 24 hr 01/13/22 06:25 WBC 14.63 H RBC 3.27 L Hgb 10.1 L Hct 29.5 L MCV 90 MCH 30.9 MCHC 34.2 RDW 15.3 H Plt Count 357 MPV 10.4
--- NOTE | 2022-01-13 14:11 | CHAPLAIN ---
Eli's trip to [facility] for a procedure was delayed from yesterday to today. When I visited with her she was waiting for the ambulance to arrive to transport her. She said once she gets on her way to [facility] she believes she will feel more relaxed that her health plans are underway. Eli has been NPO on and off while here because of her symptoms and while waiting to be transported to [facility] and she believes not eating has brought on the migraines that she has been dealing with the last few days, that and being anxious she said. She was told she has a spot on her pancreas and is waiting to learn more about that. Eli is Religion and listens to Religion music to help her relax. She has asked for prayer in the past couple of days.
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
[2022-01-13 18:27] VITALS: BP 170/89; PULSE 66; RESP 22; TEMP 36.5; O2SAT 96
[2022-01-13] MEDS: Acetaminophen 500 MG TAB PO (18:28)
--- NOTE | 2022-01-13 18:33 | NUR.NOTE ---
Nursing Note: pt returns to floor from [facility] at 1852, upon arrival pt is transported back into her bed and is audibly crying. pt states she is in 20/10 pain in her back and described it as it feels like someone is stabbing me. pt was given tylenol at this time, and surgeon was paged per CC.
[2022-01-13] MEDS: Fluconazole 150 MG TAB PO (18:40)
[2022-01-13] MEDS: MORPHine 2 MG/ML SYR IVP ×2 (19:12→23:25)
[2022-01-13] MEDS: Ketorolac 10 MG TAB PO (20:26)
[2022-01-13 22:35] VITALS: BP 185/65; PULSE 67; RESP 18; TEMP 37.2; O2SAT 95
[2022-01-14] MEDS: Lactated Ringers 1,000 ML 120 ML IV ×3 (00:45→14:50)
[2022-01-14] MEDS: Ketorolac 10 MG TAB PO ×4 (00:51→21:57)
[2022-01-14] MEDS: MORPHine 2 MG/ML SYR IVP ×6 (03:19→21:09)
[2022-01-14] MEDS: Normal Saline Flush 10 ML SYR IVP (03:19)
[2022-01-14] MEDS: LORazepam 0.5 MG TAB PO ×2 (06:12→22:00)
[2022-01-14 06:30] LABS: HCT 24.4 % (36.0-46.0); MCH 34.9 pg (27.0-33.0); MCHC 36.9 % (32.0-36.0); MCV 95 fL (80-95); MPV 10.2 fL (8.0-11.0); Platelet Count 362 10^3/uL (130-400); RBC 2.58 10^6/uL (3.93-5.22); RDW-SD 48.3 fL; WBC 15.62 10^3/uL (4.4-10.8)
[2022-01-14 06:51] LABS: ALT 58 U/L (14-59); AST 26 U/L (15-37); Albumin 3.3 g/dL (3.4-5.0); Alkaline Phosphatase 96 U/L (46-116); Anion Gap 7.3 mmol/L (3-11); BUN 15 mg/dL (7-18); Bilirubin, Total 4.3 mg/dL (0.2-1.0); CO2 27.7 mmol/L (21.0-32.0); CREATININE 0.8 mg/dL (0.55-1.02); Calcium 8.1 mg/dL (8.5-10.1); Chloride 106 mmol/L (98-107); Glucose 99 mg/dL (74-106); Potassium 3.6 mmol/L (3.5-5.1); Sodium 141 mmol/L (136-145); Total Protein 6.3 g/dL (6.4-8.2)
[2022-01-14 07:40] VITALS: BP 149/79; PULSE 72; RESP 18; TEMP 37.2; O2SAT 94
[2022-01-14 07:40] LABS: Lipase 7377 U/L (73-393)
[2022-01-14] MEDS: Famotidine 20 MG TAB PO ×2 (08:26→19:53)
[2022-01-14] MEDS: Amoxicillin 875/Clav. 125 TAB PO ×2 (08:26→19:53)
--- NOTE | 2022-01-14 10:33 | PGE_ITS ---
Date of Service Date of service: 01/14/22 Time of Service: 10:33 Assessment and Plan Assessment and plan (1) Pancreatitis, acute: Status: Acute Assessment and plan: Her pain and elevated serum lipase today suggest acute post ERCP pancreatitis. I will try to manage her pain through the day. I think she is fine to eat which she can tolerate. I will repeat a serum lipase tomorrow. Subjective Subjective Interval history since last seen: She went down to [facility] yesterday for diagnostic ERCP. Hepatic ducts appeared normal on that test. She underwent sphincterotomy and stenting. When she returned to [facility], she had severe midepigastric pain that radiated to her back. It improved with morphine. Exam GI Inspection: normal to inspection Palpation: soft, guarding and tender Percussion: normal to percussion Auscultation: normal bowel sounds Objective Last Vital Signs Temp 99.0 F 01/14/22 07:40 Pulse 72 01/14/22 07:40 Resp 18 01/14/22 07:40 BP 149/79 H 01/14/22 07:40 Pulse Ox 94 01/14/22 07:40 Laboratory Results - last 24 hr 01/14/22 01/14/22 06:04 06:04 WBC 15.62 H RBC 2.58 L Hgb 9.0 L Hct 24.4 L MCV 95 D MCH 34.9 H MCHC 36.9 H D RDW 19.0 H Plt Count 362 MPV 10.2 Sodium 141 Potassium 3.6 Chloride 106 Carbon Dioxide 27.7 Anion Gap 7.3 BUN 15 Creatinine 0.8 Estimated GFR/1.73 m2 >= 60.00 Glucose 99 Calcium 8.1 L Total Bilirubin 4.3 H AST 26 ALT 58 Alkaline Phosphatase 96 Total Protein 6.3 L Albumin 3.3 L Lipase 7377 H
[2022-01-14 16:26] VITALS: BP 155/84; PULSE 65; RESP 18; TEMP 37.4; O2SAT 92
[2022-01-14] MEDS: Acetaminophen 500 MG TAB PO (23:36)
[2022-01-15] MEDS: MORPHine 2 MG/ML SYR IVP ×4 (00:26→09:18)
[2022-01-15] MEDS: Ketorolac 10 MG TAB PO ×5 (02:37→19:57)
[2022-01-15] MEDS: LORazepam 0.5 MG TAB PO ×2 (02:38→19:56)
[2022-01-15 02:45] VITALS: BP 154/94; PULSE 78; RESP 18; TEMP 37.2; O2SAT 95
[2022-01-15] MEDS: Lactated Ringers 1,000 ML 120 ML IV (06:32)
[2022-01-15 06:56] LABS: HCT 23.2 % (36.0-46.0); HGB 7.8 g/dL (11.2-15.7); MCH 32.1 pg (27.0-33.0); MCHC 33.6 % (32.0-36.0); MCV 96 fL (80-95); MPV 10.2 fL (8.0-11.0); Platelet Count 349 10^3/uL (130-400); RBC 2.43 10^6/uL (3.93-5.22); RDW 16.2 % (11.7-14.6); RDW-SD 49.5 fL; WBC 16.89 10^3/uL (4.4-10.8)
[2022-01-15 07:02] LABS: Lipase 3261 U/L (73-393)
[2022-01-15 07:39] VITALS: BP 129/75; PULSE 77; RESP 18; TEMP 37.5; O2SAT 95
[2022-01-15] MEDS: Famotidine 20 MG TAB PO ×2 (08:12→19:58)
[2022-01-15] MEDS: Amoxicillin 875/Clav. 125 TAB PO ×2 (08:12→19:56)
--- NOTE | 2022-01-15 08:20 | W.PM.PROGNOT ---
Date of Service Date of service: 01/15/22 Time of Service: 08:20 Assessment and Plan Assessment and plan (1) Pancreatitis, acute: Status: Acute Assessment and plan: Lipase has trended down today, and her symptoms are far more reassuring. Unfortunately, her white blood cell count is up a little bit, and she did have a fever last night. Hopefully, this is just some sequelae of pancreatitis. I will repeat her white blood cell count tomorrow. If that is elevated, but I think we should probably get a CAT scan of the abdomen and pelvis to reassess her diverticulitis Subjective Subjective Interval history since last seen: She says her pain is a lot better than yesterday morning. She had some mild increase in her diet last night, and was able to tolerate some food without any nausea or vomiting. She was able to get some sleep last night. Exam GI Inspection: normal to inspection and non-distended Palpation: soft, no guarding and tender (Less tender than yesterday) in the epigastrum Percussion: normal to percussion Auscultation: normal bowel sounds Objective Last Vital Signs Temp 99.5 F 01/15/22 07:39 Pulse 77 01/15/22 07:39 Resp 18 01/15/22 07:39 BP 129/75 01/15/22 07:39 Pulse Ox 95 01/15/22 07:39 Laboratory Results - last 24 hr 01/15/22 01/15/22 05:53 05:53 WBC 16.89 H RBC 2.43 L Hgb 7.8 L Hct 23.2 L MCV 96 H MCH 32.1 MCHC 33.6 D RDW 16.2 H Plt Count 349 MPV 10.2 Lipase 3261 H
[2022-01-15] MEDS: Normal Saline Flush 10 ML SYR IVP ×2 (09:18→20:04)
[2022-01-15] MEDS: Acetaminophen 500 MG TAB PO ×2 (13:35→20:02)
[2022-01-15 17:18] VITALS: BP 161/82; PULSE 67; RESP 16; TEMP 37.2; O2SAT 96
[2022-01-15 23:30] VITALS: BP 160/80; PULSE 67; RESP 16; TEMP 36.9; O2SAT 96
--- NOTE | 2022-01-16 | DI.CT_ITS ---
Exam(s) CT ABDOMEN PELVIS W EXAM: CT ABDOMEN PELVIS W CLINICAL HISTORY: Elevated WBC, being tx for diverticulitis TECHNIQUE: Imaging Protocol: Axial computed tomography images with coronal and sagittal reformatted images were created and reviewed CONTRAST MATERIAL: Intravenous: Omnipaque 350 Contrast volume:94 mL Oral: No COMPARISON: CT CT ABDOMEN PELVIS W from 01/07/2022 FINDINGS: ABDOMEN: Lung Bases: There are small bilateral pleural effusions and subjacent infiltrates. Liver: Normal density. Stable hypodense lesion is seen in the right lobe of the liver. There is a cy st seen in the caudate lobe. Portal, Superior Mesenteric, and Splenic Veins: Unremarkable. Gallbladder and Biliary Tract: Status post cholecystectomy. Since the prior examination there has be en interval placement of a biliary stent. Pneumobilia is now seen. Pancreas: There is now mild inflammation around the body of the pancreas. No focal fluid collection is seen. Spleen: Normal. Adrenals: No masses seen. Kidneys: Normal size, contour and axis. No radiodense stones or obstructive uropathy. Stable bilatera l renal cysts. Abdominal Aorta: Abdominal portion non-dilated. Bowel: No obstruction or bowel wall thickening. Appendix is unremarkable. Mild diverticulosis in the sigmoid colon. There are few diverticula seen in the mid transverse colon. There is very mild peric olonic inflammation in the mid transverse colon. The inflammation has resolved in the proximal trans verse colon. Peritoneal Cavity: There is a trace amount of fluid in the pelvis. No focal fluid collection is seen to suggest an abscess. No free air. Lymph Nodes: Within normal limits. Bones: Within normal limits for the patient's age. Soft Tissues: Unremarkable. PELVIS: Bladder: Symmetric distention, no gross wall thickening. Reproductive Organs: Unremarkable as visualized. Lymph Nodes: Within normal limits. Bones: Within normal limits for the patient's age. IMPRESSION: 1. Resolution of the proximal transverse colon inflammation. There are few diverticula seen in the m id transverse colon with very mild pericolonic inflammation and mild diverticulitis cannot be exclude d. 2. No abscess or free air. 3. Interval placement of a biliary stent. 4. Mild stranding and inflammation around the body of the pancreas. Acute pancreatitis should be con sidered. Please correlate clinically. No focal fluid collection is seen. RADIATION DOSE DELIVERED: 847.37mGy.cm Total DLP DATA REPOSITORY: All CT scans at this facility are submitted to the National Radiology Data Registry (NRDR) Dose Index Registry (DIR) with the [employer] (ACR). RADIATION OPTIMIZATION: All CT scans at this facility use at least one of these dose optimization te chniques: automated exposure control; mA and/or kV adjustment per patient size (includes targeted exa ms where dose is matched to clinical indication); or iterative reconstruction.
[2022-01-16] MEDS: MORPHine 2 MG/ML SYR IVP (00:41)
[2022-01-16] MEDS: LORazepam 0.5 MG TAB PO ×2 (00:41→23:44)
[2022-01-16] MEDS: Normal Saline Flush 10 ML SYR IVP ×3 (00:42→19:36)
[2022-01-16] MEDS: Ketorolac 10 MG TAB PO ×5 (04:17→21:42)
[2022-01-16 06:38] LABS: MCH 38.7 pg (27.0-33.0); MCHC 37.4 % (32.0-36.0); MCV 103 fL (80-95); MPV 10.3 fL (8.0-11.0); Platelet Count 369 10^3/uL (130-400); RBC 1.81 10^6/uL (3.93-5.22); RDW 24.1 % (11.7-14.6); RDW-SD 51.4 fL; WBC 18.42 10^3/uL (4.4-10.8)
[2022-01-16 06:51] LABS: HCT 18.7 % (36.0-46.0)
[2022-01-16 07:00] LABS: ALT 39 U/L (14-59); AST 18 U/L (15-37); Albumin 3.1 g/dL (3.4-5.0); Alkaline Phosphatase 85 U/L (46-116); Anion Gap 4.2 mmol/L (3-11); BUN 15 mg/dL (7-18); Bilirubin, Direct 0.3 mg/dL (0.0-0.2); Bilirubin, Total 4.6 mg/dL (0.2-1.0); CO2 27.8 mmol/L (21.0-32.0); CREATININE 0.8 mg/dL (0.55-1.02); Calcium 8.4 mg/dL (8.5-10.1); Chloride 104 mmol/L (98-107); Glucose 115 mg/dL (74-106); Lipase 825 U/L (73-393); Potassium 3.4 mmol/L (3.5-5.1); Sodium 136 mmol/L (136-145); Total Protein 6.3 g/dL (6.4-8.2)
[2022-01-16] MEDS: Amoxicillin 875/Clav. 125 TAB PO ×2 (08:10→19:35)
[2022-01-16] MEDS: Famotidine 20 MG TAB PO ×2 (08:10→19:36)
--- NOTE | 2022-01-16 08:14 | W.PM.PROGNOT ---
Date of Service Date of service: 01/16/22 Time of Service: 08:14 Assessment and Plan Assessment and plan (1) Pancreatitis, acute: Status: Acute Assessment and plan: Significant improvement in Lipase, 825 today. (2) Acute on chronic anemia: Status: Acute Assessment and plan: Hgb 7.0, this was rechecked and confirmed to be 7.0 Dr. Palmer has ordered a unit of RBC (3) Painless jaundice: Status: Acute (4) Acute diverticulitis: Status: Acute Assessment and plan: Leukocytosis is increasing etiology unknown ordered UA, Chest Xray and CT abdomen and pelvis. Cramping abdominal pain, patient is receiving Augmentin Encouraged PO fluids. Subjective Subjective Interval history since last seen: Arrive with patient resting in bed. She reports cramping abdominal pain. She denies having any nausea or vomiting. Exam Const General: cooperative, healthy appearing and comfortable Orientation: alert and oriented x3 Resp Effort & Inspection: normal respiratory effort, no audible wheezes and no cough GI Inspection: normal to inspection Palpation: soft, no guarding and tender Objective Last Vital Signs Temp 36.9 C 01/15/22 23:30 Pulse 67 01/15/22 23:30 Resp 16 01/15/22 23:30 BP 160/80 H 01/15/22 23:30 Pulse Ox 96 01/15/22 23:30 Laboratory Results - last 24 hr 01/09/22 01/16/22 01/16/22 07:26 06:00 06:00 WBC RBC Hgb Hct MCV MCH MCHC RDW Plt Count MPV Sodium 136 Potassium 3.4 L Chloride 104 Carbon Dioxide 27.8 Anion Gap 4.2 BUN 15 Creatinine 0.8 Estimated GFR/1.73 m2 >= 60.00 Glucose 115 H Calcium 8.4 L Total Bilirubin 4.6 H Cancelled Conjugated Bilirubin 0.3 H Cancelled AST 18 ALT 39 Alkaline Phosphatase 85 Total Protein 6.3 L Albumin 3.1 L Lipase 825 H Crossmatch See Detail 01/16/22 01/16/22 06:00 07:55 WBC 18.42 H RBC 1.81 L Hgb 7.0 L* Hct 18.7 L* MCV 103 H D MCH 38.7 H MCHC 37.4 H D RDW 24.1 H Plt Count 369 MPV 10.3 Sodium Potassium Chloride Carbon Dioxide Anion Gap BUN Creatinine Estimated GFR/1.73 m2 Glucose Calcium Total Bilirubin Conjugated Bilirubin AST ALT Alkaline Phosphatase Total Protein Albumin Lipase Crossmatch See Detail
[2022-01-16 08:15] LABS: HCT 18.1 % (36.0-46.0)
[2022-01-16 08:20] VITALS: BP 146/76; PULSE 71; RESP 16; TEMP 37.3; O2SAT 97
[2022-01-16 10:03] LABS: Bilirubin Moderate (Negative); Blood Trace-lysed (Negative); Clarity Sl Cloudy (Clear); Glucose Negative (Negative); Ketones Trace mg/dL (Negative); Leukocyte Esterase Negative (Negative); Nitrite Positive (Negative); Specific Gravity >= 1.030 (1.005-1.025); Urobilinogen 0.2 EU/dL (Up TO 0.2)
[2022-01-16] MEDS: Omnipaque 350 MG/ML 100 ML BTL IJ (10:19)
[2022-01-16 10:22] LABS: Bacteria Moderate HPF (Negative); C & S Indicated? No/Sq. Contamination; Casts Negative LPF (Negative); Crystals Mod Calcium Oxalate HPF (Negative); Epithelial Cells Many HPF (Negative); Mucus Heavy (Negative); WBC 0-2 HPF (0-5)
--- NOTE | 2022-01-16 10:31 | DI.RAD_ITS ---
Exam(s) XR CHEST 1V IN DI DEPT EXAM: XR CHEST 1V IN DI DEPT CLINICAL HISTORY: Elevated WBC TECHNIQUE: 2D digital imaging was performed of the chest. One image was obtained. An AP view was ob tained. COMPARISON: CR CHEST 2 VIEWS PA,LAT from 06/10/2011 FINDINGS: Low lung volumes. MEDIASTINUM: There is prominence of the right hilum. HEART: Normal. PULMONARY VASCULATURE: Normal. LUNGS: Linear opacities are seen in the left lung base. PLEURAL SPACE: There is blunting of the left costophrenic angle suggesting a small pleural effusion. No pneumothorax is identified. BONE:Within normal limits for the patient's age. OTHER FINDINGS:Normal. IMPRESSION: 1. There is prominence of the right hilum. This may represent adenopathy, vascularity or central mas s. CT scan of the chest is recommended for further evaluation. 2. Left basilar infiltrate which may represent atelectasis or pneumonia. 3. Question of a small left pleural effusion. DATA REPOSITORY: RADIATION DOSE DELIVERED:
[2022-01-16] MEDS: Acetaminophen 500 MG TAB PO ×2 (13:24→19:35)
--- NOTE | 2022-01-16 14:09 | PDOC.CMDIS ---
- If Service Date Differs Date of service: 01/16/22 Time of Service: 14:09 LACE Index Scoring Tool - Questions: Length of Stay (in days): 7 - 13 Acuity (Admit via E.D.?): Yes E.D. Visits: 2 - Answers: Total Score: 10 Risk of Readmission: High Risk Care Management Discharge Reason for Hospitalization: Acute diverticulitis Discharge Plan: Eli is discharged home via private vehicle with family. New RX is transmitted to [facility]. No new [facility] services are ordered. Follow up appointment is scheduled with Dr. Elliott on 01/20/22 at 10:00am. Patient/Family Education Needs: Review discharge instructions, limitations, medications and plan to follow up with community providers. ask me three.
[2022-01-16] MEDS: Calcium Carbonate *TUMS* 500 MG CHEW 1000 MG PO (14:47)
[2022-01-16 16:20] VITALS: BP 147/57; PULSE 69; RESP 16; TEMP 36.5; O2SAT 100
[2022-01-16 16:24] LABS: Reticulocyte 3.9 % (0.5-2.4)
[2022-01-16 16:35] LABS: Lab Add On Test DONE
--- NOTE | 2022-01-16 17:10 | PDOC.CMPRO ---
- If Service Date Differs Date of service: 01/16/22 Time of Service: 17:10 Care Management Progress Note S/O: Eli is awaiting a transfusion, while result is pending from the [facility]. Pts labs are being closely monitored. She will need an outpatient consult with hematology at [facility] on discharge. A: Eli is a 61 year old woman admitted with diverticulitis on 01/07/22. P: Eli will likely be discharged home with no new services. She will follow up with her community providers and plan of care and transport with family. CM will follow and support discharge planning needs.
[2022-01-16 20:01] VITALS: BP 136/77; PULSE 73; RESP 16; TEMP 37.4; O2SAT 95
[2022-01-17] VITALS (12 sets, daily range): BP systolic 133–165; BP diastolic 72–89; PULSE 70–84; RESP 14–20; TEMP 36.8–37.6; O2SAT 94–98
[2022-01-17] MEDS: Acetaminophen 500 MG TAB PO ×3 (01:23→15:14)
[2022-01-17] MEDS: Ketorolac 10 MG TAB PO ×4 (01:24→19:11)
[2022-01-17 06:51] LABS: ALT 41 U/L (14-59); AST 18 U/L (15-37); Albumin 3.4 g/dL (3.4-5.0); Alkaline Phosphatase 96 U/L (46-116); Anion Gap 9.1 mmol/L (3-11); BUN 15 mg/dL (7-18); Bilirubin, Total 5.4 mg/dL (0.2-1.0); CO2 26.9 mmol/L (21.0-32.0); CREATININE 0.7 mg/dL (0.55-1.02); Calcium 8.9 mg/dL (8.5-10.1); Chloride 107 mmol/L (98-107); Estimated GFR 98.34 (mL/min/1.73m2); Glucose 101 mg/dL (74-106); Magnesium 1.8 mg/dL (1.8-2.4); Potassium 3.7 mmol/L (3.5-5.1); Sodium 143 mmol/L (136-145); Total Protein 6.9 g/dL (6.4-8.2)
[2022-01-17 07:07] LABS: Abs Immature Grans 0.37 10^3/uL (0.0-0.06); Absolute Lymphocyte Count 3.01 10^3/uL (1.2-3.4); Absolute Monocyte Count 1.22 10^3/uL (0.1-0.8); Basophils % 0.5; Immature Grans % 1.9; Lymphocytes % 15.8; MCH 30.5 pg (27.0-33.0); MCV 92 fL (80-95); MPV 10.3 fL (8.0-11.0); Monocytes % 6.4; Neutrophils % 72.4; Nucleated RBC 0.2 % (0.0-0.3); Platelet Count 459 10^3/uL (130-400); RBC 2.26 10^6/uL (3.93-5.22); RDW 15.5 % (11.7-14.6); RDW-SD 48.5 fL; WBC 19.06 10^3/uL (4.4-10.8)
[2022-01-17 07:12] LABS: Absolute Eosinophil Count 0.57 10^3/uL (0.0-0.7)
[2022-01-17 07:16] LABS: HCT 20.7 % (36.0-46.0); HGB 6.9 g/dL (11.2-15.7); MCHC 33.3 % (32.0-36.0)
[2022-01-17 08:39] LABS: Lab Add On Test DONE
[2022-01-17 08:51] LABS: Lipase 383 U/L (73-393)
[2022-01-17] MEDS: Amoxicillin 875/Clav. 125 TAB PO (09:05)
[2022-01-17] MEDS: Famotidine 20 MG TAB PO ×2 (09:05→19:11)
--- NOTE | 2022-01-17 09:05 | PGE_ITS ---
Date of Service Date of service: 01/17/22 Time of Service: 09:05 Assessment and Plan Assessment and plan (1) Pancreatitis, acute: Status: Deleted Assessment and plan: post procedural slowly resolving (2) Acute on chronic anemia: Status: Acute Assessment and plan: -In reviewing her chart she has been anemic since 04/10. Patient was not aware of this and was not clinically symptomatic. I am wondering if this is some transient response to her being ill that she gets a mild bone marrow suppression. This is also happened around the time she had diverticulosis in March 2021. -Patient also notes that her mother has bone marrow cancer currently. She is going to need to follow-up with hematology as an outpatient -possible stress reaction to be acutely ill. Haptoglobiin and retic # were nl. -Blood is still pd as she has atypical Ab's -hgb continues to fall hgb 6.9 -folate/B12 are normal -feritin is 1400 -Retic count- 3.9% -haptoglobin is 53 -LDH 210 -peripheral smear is pd. -Hep C neg. -CRP 12 Patient has been on H2 sherri the entire time she has been here. During her ERCP there is no obvious gastritis or ulcers noted. She has not had any clinically any signs of GI bleeding. No dark stools or bloody stools. He had a colonoscopy in either April 2021 or May 2021. There were no polyps or tumors. She had her repeat CT Date of Exam: 01/16/22 ABDOMEN: Lung Bases: There are small bilateral pleural effusions and subjacent infiltrates.? Liver: Normal density. Stable hypodense lesion is seen in the right lobe of the liver.? There is a cyst seen in the caudate lobe.? Portal, Superior Mesenteric, and Splenic Veins: Unremarkable.? Gallbladder and Biliary Tract: Status post cholecystectomy.? Since the prior examination there has been interval placement of a biliary stent.? Pneumobilia is now seen.? Pancreas: There is now mild inflammation around the body of the pancreas.? No focal fluid collection is seen.? Spleen: Normal. Adrenals: No masses seen. Kidneys: Normal size, contour and axis. No radiodense stones or obstructive uropathy. Stable bilateral renal cysts.? Abdominal Aorta: Abdominal portion non-dilated. Bowel: No obstruction or bowel wall thickening. Appendix is unremarkable. Mild diverticulosis in the sigmoid colon.? There are few diverticula seen in the mid transverse colon.? There is very mild pericolonic inflammation in the mid transverse colon.? The inflammation has resolved in the proximal transverse colon. Peritoneal Cavity: There is a trace amount of fluid in the pelvis.? No focal fluid collection is seen to suggest an abscess.? No free air. Lymph Nodes: Within normal limits. Bones: Within normal limits for the patient's age.? Soft Tissues: Unremarkable. PELVIS: Bladder: Symmetric distention, no gross wall thickening. Reproductive Organs: Unremarkable as visualized. Lymph Nodes: Within normal limits. Bones: Within normal limits for the patient's age.? IMPRESSION: 1. Resolution of the proximal transverse colon inflammation.? There are few diverticula seen in the mid transverse colon with very mild pericolonic inflammation and mild diverticulitis cannot be excluded. 2. No abscess or free air. 3. Interval placement of a biliary stent. 4. Mild stranding and inflammation around the body of the pancreas.? Acute pancreatitis should be considered.? Please correlate clinically.? No focal fluid collection is seen.? (3) Pancreas anomaly, congenital: Status: Acute Assessment and plan: -MRI as outpt normal ERCP (4) Fibromyalgia: Status: Acute (5) Chronic migraine without aura, intractable, without status migrainosus: Status: Acute (6) Hiatal hernia: Assessment and plan: s/p Juan Jose (7) S/P ERCP: Status: Acute Assessment and plan: this was normal sustained an injury to CBD. She has one dissolving and one metal stent that will need to be removed. (8) Leukocytosis (leucocytosis): Status: Acute Assessment and plan: etiology unclear UTI possibly reactive from procedure -change abx cipro/flagyl d/c home when trending down (9) UTI (urinary tract infection): Status: Acute (10) Post-ERCP acute pancreatitis: Status: Acute (11) Serum total bilirubin elevated: Status: Acute Assessment and plan: -unclear etiology Subjective Subjective Interval history since last seen: pt seen and examined events from ERCP reviewed. Events during ERCP reviewed. Pt has mild RUQ pain that radiates to back and mild nausea and bloating. She doesn't have much of an appetite After reviewing her chart- she has been anemic since 03/2021. When they did the ERCP- the stomach was grossly nl. There was no gastritis or ulcers. She had a colonoscopy in 05/10 or 06/11 she cannot remember the exact date and only showed diverticula there were no polyps per the patient. She has no obvious signs of bleeding she is not last passing bloody stools or black tarry stools she is not vomiting blood. She has had a Vinay in the past. She has been on Pepcid the entire time she has been here. Exam Resp Effort & Inspection: normal respiratory effort and able to speak in complete sentences Auscultation: clear to auscultation bilaterally GI Other: mild ruq pain/back pain and nausea. no peritonitis. no LLQ pain Objective Last Vital Signs Temp 36.8 C 01/17/22 00:09 Pulse 70 01/17/22 00:09 Resp 18 01/17/22 00:09 BP 165/87 H 01/17/22 00:09 Pulse Ox 96 01/17/22 00:09 Laboratory Results - last 24 hr 01/16/22 01/16/22 01/16/22 07:00 07:55 07:55 WBC RBC Hgb Hct MCV MCH MCHC RDW Plt Count MPV Reticulocyte % (Auto) 3.9 H Immature Gran % Neutrophils % Lymphocytes % Monocytes % Eosinophils % Basophils % Nucleated RBC % Absolute Neutrophils Absolute Lymphocytes Absolute Monocytes Absolute Eosinophils Absolute Basophils Sodium Potassium Chloride Carbon Dioxide Anion Gap BUN Creatinine Est GFR (CKD-EPI 2020) Glucose Calcium Magnesium Total Bilirubin AST ALT Alkaline Phosphatase Total Protein Albumin Lipase Urine Color Urine Clarity Urine pH Ur Specific Jansen Urine Protein Urine Ketones Urine Blood Urine Nitrite Urine Bilirubin Urine Urobilinogen Ur Leukocyte Esterase Urine RBC Urine WBC Ur Epithelial Cells Urine Crystals Urine Bacteria Urine Casts Urine Mucus Ur Culture Indicated? Urine Glucose Add-On Test Request DONE Crossmatch See Detail 01/16/22 01/17/22 01/17/22 09:23 06:00 06:00 WBC 19.06 H RBC 2.26 L Hgb 6.9 L* Hct 20.7 L* MCV 92 D MCH 30.5 MCHC 33.3 D RDW 15.5 H Plt Count 459 H MPV 10.3 Reticulocyte % (Auto) Immature Gran % 1.9 Neutrophils % 72.4 Lymphocytes % 15.8 Monocytes % 6.4 Eosinophils % 3.0 Basophils % 0.5 Nucleated RBC % 0.2 Absolute Neutrophils 13.80 H Absolute Lymphocytes 3.01 Absolute Monocytes 1.22 H Absolute Eosinophils 0.57 Absolute Basophils 0.10 Sodium 143 Potassium 3.7 Chloride 107 Carbon Dioxide 26.9 Anion Gap 9.1 BUN 15 Creatinine 0.7 Est GFR (CKD-EPI 2020) 98.34 Glucose 101 Calcium 8.9 Magnesium 1.8 Total Bilirubin 5.4 H AST 18 ALT 41 Alkaline Phosphatase 96 Total Protein 6.9 Albumin 3.4 Lipase Urine Color [place] Urine Clarity Sl Cloudy Urine pH 6.0 Ur Specific Jansen >= 1.030 H Urine Protein 30 H Urine Ketones Trace H Urine Blood Trace-lysed H Urine Nitrite Positive H Urine Bilirubin Moderate H Urine Urobilinogen 0.2 Ur Leukocyte Esterase Negative Urine RBC 3-5 H Urine WBC 0-2 Ur Epithelial Cells Many Urine Crystals Mod Calcium Oxalate Urine Bacteria Moderate Urine Casts Negative Urine Mucus Heavy Ur Culture Indicated? No/Sq. Contamination Urine Glucose Negative Add-On Test Request Crossmatch 01/17/22 01/17/22 01/17/22 06:00 06:00 08:30 WBC RBC Hgb Hct MCV MCH MCHC RDW Plt Count MPV Reticulocyte % (Auto) Immature Gran % Neutrophils % Lymphocytes % Monocytes % Eosinophils % Basophils % Nucleated RBC % Absolute Neutrophils Absolute Lymphocytes Absolute Monocytes Absolute Eosinophils Absolute Basophils Sodium Cancelled Potassium Cancelled Chloride Cancelled Carbon Dioxide Cancelled Anion Gap Cancelled BUN Cancelled Creatinine Cancelled Est GFR (CKD-EPI 2020) Cancelled Glucose Cancelled Calcium Cancelled Magnesium Total Bilirubin Cancelled AST Cancelled ALT Cancelled Alkaline Phosphatase Cancelled Total Protein Cancelled Albumin Cancelled Lipase 383 Cancelled Urine Color Urine Clarity Urine pH Ur Specific Jansen Urine Protein Urine Ketones Urine Blood Urine Nitrite Urine Bilirubin Urine Urobilinogen Ur Leukocyte Esterase Urine RBC Urine WBC Ur Epithelial Cells Urine Crystals Urine Bacteria Urine Casts Urine Mucus Ur Culture Indicated? Urine Glucose Add-On Test Request DONE Crossmatch
[2022-01-17 09:06] LABS: C-Reactive Protein 12.71 mg/dL (0.0-0.3)
[2022-01-17] MEDS: LORazepam 0.5 MG TAB PO (09:06)
[2022-01-17] MEDS: CIPROFLOXACIN 400 MG/200 ML BAG 200 MG IVPB ×2 (09:08→16:21)
[2022-01-17] MEDS: metroNIDAZOLE 1,000 MG/200 ML BAG 200 MG IVPB (09:09)
[2022-01-17 09:55] LABS: Ferritin 1421 ng/mL (8-252)
--- NOTE | 2022-01-17 10:41 | PDOC.CMPRO ---
- If Service Date Differs Date of service: 01/17/22 Time of Service: 10:41 Care Management Progress Note S/O: Eli was lying in bed complaining of pain when CM met with her. She had a male visitor with her at the time. Eli informed CM that she had requested pain medicine and had not received it and now her pain has gotten away from her. She verbalized being fearful that a po pain medicine might not be effective at this time, however after she was medicated with PO ketorolac, she stated she felt much better. Eli admitted to being upset and irritable because she has been so sick and does not feel like she is making progress at this time. A: Eli is a 61 year old woman admitted with diverticulitis on 01/07/22. P: Eli will likely be discharged home with no new services. She will follow up with her community providers and plan of care and transport with family. CM will continue to support Eli and assess for ongoing discharge concerns.
--- NOTE | 2022-01-17 14:48 | W.NUTRFU ---
Date of service: 01/17/22 Time of Service: 14:48 Nutrition Note NOTE: Provided pancreatitis nutrition therapy. We came up with meals that are liquid and that she has been tolerating and which will meet her nutritional needs. Ms. Brasher verbalized a good understanding of the information. Provided my contact information. Would consider TPN if Ms. Brasher continues to be unable to tolerate adequate nutrition by mouth. Time Spent in Nutritional Counseling and Treatment: 15 minutes
[2022-01-17] MEDS: MORPHine 2 MG/ML SYR IVP (15:21)
--- NOTE | 2022-01-17 16:15 | CHAPLAIN ---
Eli was resting in bed when I visited. She said she will be receiving another blood transfusion today, and that her numbers are better. She went to [facility] on 01/13 for a procedure and returned to [facility] the same day. Eli said she received a stent but that her pancreas was nicked. She's had trouble with digestion since then, and only eating soft things, she explained. Her sister lives in [place], and their mother just moved from [facility] to [place] to live with the sister. Eli has been responsible for emptying and selling her mother's house which has been stressful for her. Eli has asked not to have visitors for now as she wants to focus on healing.
[2022-01-17] MEDS: Normal Saline Flush 10 ML SYR IVP ×2 (16:21→19:11)
[2022-01-18 00:39] VITALS: BP 176/105; PULSE 84; RESP 14; TEMP 37.1; O2SAT 98
[2022-01-18] MEDS: Ketorolac 10 MG TAB PO ×5 (00:48→22:06)
[2022-01-18] MEDS: Acetaminophen 500 MG TAB PO ×4 (00:48→22:05)
[2022-01-18] MEDS: LORazepam 0.5 MG TAB PO (00:49)
[2022-01-18] MEDS: CIPROFLOXACIN 400 MG/200 ML BAG 200 MG IVPB ×3 (00:50→16:59)
[2022-01-18 01:39] VITALS: BP 146/81; PULSE 80; RESP 14; TEMP 37.9; O2SAT 96
[2022-01-18 02:09] VITALS: BP 146/81; PULSE 80; RESP 14; TEMP 37.9; O2SAT 96
[2022-01-18 07:28] LABS: Bilirubin, Direct 0.4 mg/dL (0.0-0.2); C-Reactive Protein 8.72 mg/dL (0.0-0.3)
[2022-01-18 07:38] VITALS: BP 156/79; PULSE 73; RESP 18; TEMP 37.1; O2SAT 97
[2022-01-18 07:40] LABS: HCT 23.8 % (36.0-46.0); HGB 8.1 g/dL (11.2-15.7); MCH 30.1 pg (27.0-33.0); MCV 89 fL (80-95); MPV 10.2 fL (8.0-11.0); Platelet Count 421 10^3/uL (130-400); RBC 2.69 10^6/uL (3.93-5.22); RDW 15.5 % (11.7-14.6); RDW-SD 49.1 fL; WBC 17.12 10^3/uL (4.4-10.8)
[2022-01-18 07:59] LABS: Absolute Basophil Count 0.17 10^3/uL (0.0-0.2); Absolute Eosinophil Count 0.17 10^3/uL (0.0-0.7); Absolute Lymphocyte Count 2.91 10^3/uL (1.2-3.4); Absolute Monocyte Count 1.03 10^3/uL (0.1-0.8); Absolute Neutrophil Count 12.84 10^3/uL (1.2-6.7); Bands % 2
[2022-01-18 08:01] LABS: Diff Comment Manual Differential; RBC Morphology Normal
[2022-01-18] MEDS: Famotidine 20 MG TAB PO ×2 (08:24→19:28)
[2022-01-18] MEDS: Normal Saline Flush 10 ML SYR IVP ×3 (08:24→19:28)
--- NOTE | 2022-01-18 09:32 | PDOC.CMPRO ---
- If Service Date Differs Date of service: 01/18/22 Time of Service: 09:32 Care Management Progress Note S/O: Eli was walking in her room when CM met with her. She was smiling and informed CM that she is finally feeling better. Her pain is well controlled and she has been eating and tolerating her diet. She shared that she anticipates a possible discharge tomorrow. A: Eli is a 61 year old woman admitted with diverticulitis on 01/07/22. P: Eli will likely be discharged home with no new services. She will follow up with her community providers and plan of care and transport with family. CM will continue to support Eli and assess for ongoing discharge concerns.
--- NOTE | 2022-01-18 13:16 | W.PM.PROGNOT ---
Date of Service Date of service: 01/18/22 Time of Service: 13:16 Assessment and Plan Assessment and plan (1) Pancreatitis, acute: Status: Deleted Assessment and plan: post procedural slowly resolving (2) Acute on chronic anemia: Status: Acute Assessment and plan: -In reviewing her chart she has been anemic since 04/10. Patient was not aware of this and was not clinically symptomatic. I am wondering if this is some transient response to her being ill that she gets a mild bone marrow suppression. This is also happened around the time she had diverticulosis in March 2021. -Patient also notes that her mother has bone marrow cancer currently. She is going to need to follow-up with hematology as an outpatient -possible stress reaction to be acutely ill. Haptoglobiin and retic # were nl. - 2 units of blood given last night - Hgb up to 8.1 today -folate/B12 are normal -feritin is 1400 -Retic count- 3.9% -haptoglobin is 53 -LDH 210 -peripheral smear is pd. -Hep C neg. -CRP down to just above 8 Patient has been on H2 sherri the entire time she has been here. During her ERCP there is no obvious gastritis or ulcers noted. She has not had any clinically any signs of GI bleeding. No dark stools or bloody stools. Occult blood tests have been negative on multiple ocassions He had a colonoscopy in either April 2021 or May 2021. There were no polyps or tumors. She had her repeat CT Date of Exam: 01/16/22 ABDOMEN: Lung Bases: There are small bilateral pleural effusions and subjacent infiltrates.? Liver: Normal density. Stable hypodense lesion is seen in the right lobe of the liver.? There is a cyst seen in the caudate lobe.? Portal, Superior Mesenteric, and Splenic Veins: Unremarkable.? Gallbladder and Biliary Tract: Status post cholecystectomy.? Since the prior examination there has been interval placement of a biliary stent.? Pneumobilia is now seen.? Pancreas: There is now mild inflammation around the body of the pancreas.? No focal fluid collection is seen.? Spleen: Normal. Adrenals: No masses seen. Kidneys: Normal size, contour and axis. No radiodense stones or obstructive uropathy. Stable bilateral renal cysts.? Abdominal Aorta: Abdominal portion non-dilated. Bowel: No obstruction or bowel wall thickening. Appendix is unremarkable. Mild diverticulosis in the sigmoid colon.? There are few diverticula seen in the mid transverse colon.? There is very mild pericolonic inflammation in the mid transverse colon.? The inflammation has resolved in the proximal transverse colon. Peritoneal Cavity: There is a trace amount of fluid in the pelvis.? No focal fluid collection is seen to suggest an abscess.? No free air. Lymph Nodes: Within normal limits. Bones: Within normal limits for the patient's age.? Soft Tissues: Unremarkable. PELVIS: Bladder: Symmetric distention, no gross wall thickening. Reproductive Organs: Unremarkable as visualized. Lymph Nodes: Within normal limits. Bones: Within normal limits for the patient's age.? IMPRESSION: 1. Resolution of the proximal transverse colon inflammation.? There are few diverticula seen in the mid transverse colon with very mild pericolonic inflammation and mild diverticulitis cannot be excluded. 2. No abscess or free air. 3. Interval placement of a biliary stent. 4. Mild stranding and inflammation around the body of the pancreas.? Acute pancreatitis should be considered.? Please correlate clinically.? No focal fluid collection is seen.? (3) Pancreas anomaly, congenital: Status: Acute Assessment and plan: -MRI as outpt normal ERCP (4) Fibromyalgia: Status: Acute (5) Chronic migraine without aura, intractable, without status migrainosus: Status: Acute (6) Hiatal hernia: Assessment and plan: s/p Juan Jose (7) S/P ERCP: Status: Acute Assessment and plan: this was normal sustained an injury to CBD. She has one dissolving and one metal stent that will need to be removed. (8) Leukocytosis (leucocytosis): Status: Acute Assessment and plan: etiology unclear- ? ascending cholangitis post ERCP UTI possibly reactive from procedure -change abx cipro/flagyl Leukocytosis improved d/c home when trending down (9) UTI (urinary tract infection): Status: Acute (10) Post-ERCP acute pancreatitis: Status: Acute (11) Serum total bilirubin elevated: Status: Acute Assessment and plan: -unclear etiology Subjective Subjective Interval history since last seen: Eli is feeling well. Pain is almost gone. No N/V Had some low grade fevers last night Exam Const General: comfortable and no acute distress HENHI Head: normocephalic and atraumatic Resp Effort & Inspection: normal respiratory effort GI Palpation: soft, no hepatosplenomegaly and nontender Objective Last Vital Signs Temp 98.8 F 01/18/22 07:38 Pulse 73 01/18/22 07:38 Resp 18 01/18/22 07:38 BP 156/79 H 01/18/22 07:38 Pulse Ox 97 01/18/22 07:38 Laboratory Results - last 24 hr 01/16/22 01/18/22 01/18/22 07:55 06:50 06:50 WBC 17.12 H RBC 2.69 L Hgb 8.1 L Hct 23.8 L MCV 89 MCH 30.1 MCHC 34.0 RDW 15.5 H Plt Count 421 H MPV 10.2 Immature Gran % 0.0 Neutrophils % 73.0 Band Neutrophils % 2 Lymphocytes % 17.0 Monocytes % 6.0 Eosinophils % 1.0 Basophils % 1.0 Nucleated RBC % 0.0 Absolute Neutrophils 12.84 H Absolute Lymphocytes 2.91 Absolute Monocytes 1.03 H Absolute Eosinophils 0.17 Absolute Basophils 0.17 RBC Morphology Normal Conjugated Bilirubin 0.4 H C-Reactive Protein 8.72 H Patient ABO/Rh O Positive Antibody Screen NEGATIVE Crossmatch See Detail
--- NOTE | 2022-01-18 14:45 | CHAPLAIN ---
Eli was resting in bed when I visited. She said she's very tired and having trouble getting solid hours of sleep. She said she thinks she would recover better at home where she could rest better. She was told she'll need to see a chair car attendant, and that appears to worry her. Eli continues to comment that th ere must be a reason why she's having these complications and believes God will see her through this.
[2022-01-18 15:37] VITALS: BP 137/79; PULSE 66; RESP 18; TEMP 36.9; O2SAT 98
[2022-01-19 00:25] VITALS: BP 151/73; PULSE 63; RESP 16; TEMP 36.4; O2SAT 96
[2022-01-19] MEDS: CIPROFLOXACIN 400 MG/200 ML BAG 200 MG IVPB ×2 (00:25→08:52)
[2022-01-19] MEDS: Normal Saline Flush 10 ML SYR IVP ×2 (00:25→08:52)
[2022-01-19] MEDS: Ketorolac 10 MG TAB PO (02:05)
[2022-01-19] MEDS: Acetaminophen 500 MG TAB PO ×2 (02:05→09:02)
[2022-01-19 07:04] LABS: Abs Immature Grans 0.46 10^3/uL (0.0-0.06); Absolute Eosinophil Count 0.67 10^3/uL (0.0-0.7); Absolute Monocyte Count 1.02 10^3/uL (0.1-0.8); Absolute Neutrophil Count 11.48 10^3/uL (1.2-6.7); Basophils % 0.6; Eosinophils % 4.1; HGB 7.8 g/dL (11.2-15.7); Immature Grans % 2.8; Lymphocytes % 16.5; MCH 37.1 pg (27.0-33.0); MCHC 37.1 % (32.0-36.0); MCV 100 fL (80-95); Monocytes % 6.2; Neutrophils % 69.8; Platelet Count 457 10^3/uL (130-400); RDW-SD 50.2 fL; WBC 16.45 10^3/uL (4.4-10.8)
[2022-01-19 07:09] LABS: Absolute Lymphocyte Count 2.71 10^3/uL (1.2-3.4)
[2022-01-19 07:25] LABS: Bilirubin, Direct 0.2 mg/dL (0.0-0.2); C-Reactive Protein 6.87 mg/dL (0.0-0.3)
[2022-01-19 07:36] LABS: Anisocytosis 3+; Diff Comment Diff Reviewed; Hypochromasia 2+; Tear Drop Cells 2+
[2022-01-19 07:37] LABS: Poikilocytes 1+
[2022-01-19 08:30] VITALS: BP 145/84; PULSE 74; RESP 18; TEMP 36.7; O2SAT 97
[2022-01-19] MEDS: Famotidine 20 MG TAB PO (08:51)
--- NOTE | 2022-01-19 08:52 | PDOC.CMPRO ---
- If Service Date Differs Date of service: 01/19/22 Time of Service: 08:52 Care Management Progress Note S/O: Eli Miller: Eli is a 61 year old woman admitted with diverticulitis on 01/07/22. P: Eli will likely be discharged home with no new services. She will follow up with her community providers and plan of care and transport with family. CM will continue to support Eli and assess for ongoing discharge concerns.
[2022-01-19 11:03] LABS: Lab Add On Test DONE
[2022-01-19] MEDS: Ciprofloxacin 500 MG TAB PO (11:03)
[2022-01-19 11:19] LABS: Bilirubin, Total 4.1 mg/dL (0.2-1.0)
--- NOTE | 2022-01-19 11:41 | W.PM.PROGNOT ---
Date of Service Date of service: 01/19/22 Time of Service: 11:41 Assessment and Plan Assessment and plan (1) Acute on chronic anemia: Status: Acute Assessment and plan: Hgb 7.8 Hct 21.0 WBC trending downward, 16.45 today. No abdominal pain, nausea or vomiting this morning. Patient is eager to be d/c home Encouraged ambulation and activity OOB as tolerated Continue pulmonary toilet Upon D/C she will need to be set up with Hematology Referral Appt to follow up with [facility] for stent removal in 4 weeks Follow up with the surgical office Follow up with her PCP Patient seen and examined. Agree with above. Hemoglobin has been stable for the past 48 hours. T bili is declining. Patient is having minimal pain. She is not having any diarrhea. She is tolerating a low-fat diet. I did send a referral for hematology consult. We will have her scheduled at [facility] for follow-up for stent removal (2) Painless jaundice: Status: Acute (3) Acute diverticulitis: Status: Acute Assessment and plan: Leukocytosis is increasing etiology unknown ordered UA, Chest Xray and CT abdomen and pelvis. Cramping abdominal pain, patient is receiving Augmentin Encouraged PO fluids. Subjective Subjective Interval history since last seen: Patient reports that she is feeling well, but does feel tired. Denies any abdominal pain, nausea or vomiting. Exam Const General: cooperative, healthy appearing and comfortable Orientation: alert and oriented x3 Resp Effort & Inspection: normal respiratory effort, no audible wheezes and no cough GI Inspection: normal to inspection Palpation: soft, no guarding and nontender Objective Last Vital Signs Temp 36.7 C 01/19/22 08:30 Pulse 74 01/19/22 08:30 Resp 18 01/19/22 08:30 BP 145/84 H 01/19/22 08:30 Pulse Ox 97 01/19/22 08:30 Laboratory Results - last 24 hr 01/16/22 01/19/22 01/19/22 10:50 06:06 06:06 WBC 16.45 H RBC 2.10 L Hgb 7.8 L Hct 21.0 L MCV 100 H D MCH 37.1 H MCHC 37.1 H D RDW 23.0 H Plt Count 457 H MPV 10.0 Immature Gran % 2.8 Neutrophils % 69.8 Lymphocytes % 16.5 Monocytes % 6.2 Eosinophils % 4.1 Basophils % 0.6 Nucleated RBC % 0.0 Absolute Neutrophils 11.48 H Absolute Lymphocytes 2.71 Absolute Monocytes 1.02 H Absolute Eosinophils 0.67 Absolute Basophils 0.10 RBC Morphology See Below Hypochromasia 2+ Poikilocytosis 1+ Anisocytosis 3+ Tear Drop Cells 2+ Conjugated Bilirubin 0.2 C-Reactive Protein 6.87 H Add-On Test Request Blood Type (Referred) POS Blood Group (off-site) O Direct Antiglob Test POS 01/19/22 Unknown WBC RBC Hgb Hct MCV MCH MCHC RDW Plt Count MPV Immature Gran % Neutrophils % Lymphocytes % Monocytes % Eosinophils % Basophils % Nucleated RBC % Absolute Neutrophils Absolute Lymphocytes Absolute Monocytes Absolute Eosinophils Absolute Basophils RBC Morphology Hypochromasia Poikilocytosis Anisocytosis Tear Drop Cells Conjugated Bilirubin C-Reactive Protein Add-On Test Request DONE Blood Type (Referred) Blood Group (off-site) Direct Antiglob Test
[2022-01-19 14:34] VITALS: BP 150/85; PULSE 69; RESP 18; TEMP 37.1; O2SAT 98
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
--- NOTE | 2022-01-19 16:16 | CMDISCH_ITS ---
- If Service Date Differs Date of service: 01/19/22 Time of Service: 16:16 LACE Index Scoring Tool - Questions: Length of Stay (in days): 7 - 13 Acuity (Admit via E.D.?): Yes E.D. Visits: 2 - Answers: Total Score: 10 Risk of Readmission: High Risk Care Management Discharge Reason for Hospitalization: Acute diverticulitis Discharge Plan: Eli will be discharged home with no new services. She will follow up with her community providers and plan of care and transport with evelyn mora. Patient/Family Education Needs: Review of discharge instructions, activity, diet, limitations, follow up plan, discuss Ask Me Three
--- NOTE | 2022-01-19 16:34 | CHAPLAIN ---
Eli said she is feeling better today and hopes to be discharged as she believes she'll heal faster at home. She can take antibiotics orally she said, and after her IV became unusable, she told them not to put another one in. She has been up and walking in the halls today. Eli said she was told to follow up with a embossing press operator apprentice, and that worries her a bit. She believes that God has a plan for her situation and is control of what happens.
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
[2022-01-19] MEDS: Fluconazole 100 MG TAB PO (16:51)
== END 2022-01-19 17:20 | disposition home or self-care (01) | DRG 391 ==
LOC: ER 21:24 → MS 22:20
PROVIDERS: Family Medicine; Internal Medicine; Physical Therapy Assistant; Surgery; Admitting Provider Surgery; Emergency Provider Physician Assistant; PCP Physician Assistant; Visit Provider Surgery
DX: K57.32 Diverticulitis of large intestine without perforation or abscess without bleeding (principal); K85.80 Other acute pancreatitis without necrosis or infection; Q45.3 Other congenital malformations of pancreas and pancreatic duct; K86.2 Cyst of pancreas; R71.0 Precipitous drop in hematocrit; N39.0 Urinary tract infection, site not specified; R17 Unspecified jaundice; G43.719 Chronic migraine without aura, intractable, without status migrainosus; I10 Essential (primary) hypertension; M79.7 Fibromyalgia; F41.8 Other specified anxiety disorders; F43.10 Post-traumatic stress disorder, unspecified; G25.81 Restless legs syndrome; M35.00 Sjogren syndrome, unspecified; R20.2 Paresthesia of skin; M54.16 Radiculopathy, lumbar region; E55.9 Vitamin D deficiency, unspecified; E78.5 Hyperlipidemia, unspecified; D75.89 Other specified diseases of blood and blood-forming organs; D72.829 Elevated white blood cell count, unspecified; E80.6 Other disorders of bilirubin metabolism
CPT/HCPCS: 36415; 80048; 80053; 80076; 83690; 85027; 86704; 86706; 86803; 86850; 86900; 86901; 86920; 87340; 87493; 87635; 96361; 96365; 96375; 96376; 99285; J1650; 71045; 74177; 74181; 76705; 81003; 81015; 82150; 82247; 82248; 82607; 82728; 82746; 82977; 83010; 83540; 83550; 83615; 83735; 84439; 84443; 85014; 85018; 85025; 85045; 85049; 85610; 86140; 86301; 86860; 86870; 86880; 86885; 99223; 99231; 99233; A0425; A0428; J0131; J0744; J1885; J2270; J2543; J3490; P9016

== ENCOUNTER 2022-01-25 14:40 | Emergency (ER) | payer MEDICAID, SELFPAY ==
[2022-01-25] VITALS (139 sets, daily range): BP systolic 106–140; BP diastolic 36–93; PULSE 61–83; RESP 11–27; TEMP 36.6–37.2; O2SAT 96–100
[2022-01-25 12:15] LABS: Abs Immature Grans 0.99 10^3/uL (0.0-0.06); MCH 33.2 pg (27.0-33.0); MCHC 34.6 % (32.0-36.0); MCV 96 fL (80-95); MPV 9.8 fL (8.0-11.0); Platelet Count 647 10^3/uL (130-400); RBC 1.96 10^6/uL (3.93-5.22); RDW 19.6 % (11.7-14.6); RDW-SD 49.1 fL; Reticulocyte 5.9 % (0.5-2.4)
[2022-01-25 12:34] LABS: HCT 18.8 % (36.0-46.0); HGB 6.5 g/dL (11.2-15.7)
[2022-01-25 12:35] LABS: Absolute Eosinophil Count 0.34 10^3/uL (0.0-0.7); Absolute Lymphocyte Count 3.19 10^3/uL (1.2-3.4); Absolute Monocyte Count 0.17 10^3/uL (0.1-0.8); Atypical Lymphocytes % 0; Bands % 0; Diff Comment Manual Differential
[2022-01-25 12:36] LABS: Polychromasia Present
[2022-01-25 13:02] LABS: ALT 40 U/L (14-59); AST 34 U/L (15-37); Albumin 3.8 g/dL (3.4-5.0); Alkaline Phosphatase 112 U/L (46-116); Anion Gap 10.7 mmol/L (3-11); BUN 20 mg/dL (7-18); Bilirubin, Total 6.2 mg/dL (0.2-1.0); C-Reactive Protein 2.25 mg/dL (0.0-0.3); CO2 24.3 mmol/L (21.0-32.0); CREATININE 1.1 mg/dL (0.55-1.02); Calcium 8.7 mg/dL (8.5-10.1); Chloride 107 mmol/L (98-107); Estimated GFR 57.17 (mL/min/1.73m2); Glucose 185 mg/dL (74-106); Lipase 249 U/L (73-393); Potassium 3.5 mmol/L (3.5-5.1); Sodium 142 mmol/L (136-145); Total Protein 7.2 g/dL (6.4-8.2)
[2022-01-25 13:07] LABS: Iron 234 ug/dL (50-170); Total Iron Binding Capacity 283 ug/dL (250-450); Transferrin Sat 83 % (15-50)
[2022-01-25 13:49] LABS: Ferritin > 2000 ng/mL (8-252)
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
[2022-01-25 15:48] LABS: Source Nasal/Nares
[2022-01-25 16:26] LABS: COVID-19 PCR Negative (Negative)
[2022-01-30 11:00] LABS: ANA Interpretation Negative (Negative)
== END 2022-01-25 23:04 | disposition home or self-care (01) ==
PROVIDERS: Surgery; Emergency Provider Emergency Medicine; PCP Physician Assistant
DX: D64.9 Anemia, unspecified (principal); I10 Essential (primary) hypertension; Z20.822 Contact with and (suspected) exposure to COVID-19
CPT/HCPCS: 36415; 36430; 80053; 83690; 86850; 86900; 86901; 86920; 87635; 99285; 82248; 82728; 83540; 83550; 83735; 85025; 85045; 85610; 85730; 86038; 86140; P9016

== ENCOUNTER 2022-02-01 01:42 | Outpatient (CLI) | payer MEDICAID, SELFPAY ==
[2022-02-01 11:11] LABS: INR 1.1 (0.9-1.1); Prothrombin Time 11.4 sec (9.3-11.0)
[2022-02-01 11:24] LABS: Abs Immature Grans 0.04 10^3/uL (0.0-0.06); Absolute Basophil Count 0.07 10^3/uL (0.0-0.2); Absolute Eosinophil Count 0.38 10^3/uL (0.0-0.7); Absolute Lymphocyte Count 2.01 10^3/uL (1.2-3.4); Absolute Monocyte Count 0.53 10^3/uL (0.1-0.8); Absolute Neutrophil Count 5.45 10^3/uL (1.2-6.7); Basophils % 0.8; Eosinophils % 4.5; HCT 28.4 % (36.0-46.0); HGB 9.3 g/dL (11.2-15.7); Immature Grans % 0.5; Lymphocytes % 23.7; MCH 31.3 pg (27.0-33.0); MCHC 32.7 % (32.0-36.0); MCV 96 fL (80-95); MPV 10.2 fL (8.0-11.0); Monocytes % 6.3; Neutrophils % 64.2; Platelet Count 393 10^3/uL (130-400); RBC 2.97 10^6/uL (3.93-5.22); RDW 20.4 % (11.7-14.6); RDW-SD 67.2 fL; Reticulocyte 10.6 % (0.5-2.4); WBC 8.48 10^3/uL (4.4-10.8)
[2022-02-01 11:29] LABS: Anisocytosis 2+; Diff Comment RBC Morph Reviewed
[2022-02-01 11:40] LABS: ALT 33 U/L (14-59); AST 21 U/L (15-37); Alkaline Phosphatase 115 U/L (46-116); BUN 23 mg/dL (7-18); Bilirubin, Direct 0.3 mg/dL (0.0-0.2); Bilirubin, Total 6.9 mg/dL (0.2-1.0); Calcium 8.8 mg/dL (8.5-10.1); Chloride 106 mmol/L (98-107); Estimated GFR 64.09 (mL/min/1.73m2); Glucose 101 mg/dL (74-106); Lipase 183 U/L (73-393); Magnesium 1.8 mg/dL (1.8-2.4); Potassium 3.6 mmol/L (3.5-5.1); Sodium 142 mmol/L (136-145); Total Protein 7.2 g/dL (6.4-8.2); Uric Acid 6.8 mg/dL (2.6-6.0)
[2022-02-02 15:54] LABS: ANA Interpretation Negative (Negative)
== END 2022-02-01 01:43 | disposition home or self-care (01) ==
LOC: LBO 01:42
PROVIDERS: PCP Physician Assistant; Visit Provider Surgery
DX: D64.9 Anemia, unspecified (principal); D72.829 Elevated white blood cell count, unspecified; K57.92 Diverticulitis of intestine, part unspecified, without perforation or abscess without bleeding; Q45.3 Other congenital malformations of pancreas and pancreatic duct; R17 Unspecified jaundice; D69.6 Thrombocytopenia, unspecified; D50.9 Iron deficiency anemia, unspecified; Z98.890 Other specified postprocedural states; R91.8 Other nonspecific abnormal finding of lung field; D75.839 Thrombocytosis, unspecified; M79.7 Fibromyalgia; K85.90 Acute pancreatitis without necrosis or infection, unspecified; K91.89 Other postprocedural complications and disorders of digestive system
CPT/HCPCS: 36415; 80053; 83690; 86850; 86900; 86901; 82248; 83735; 84550; 85025; 85045; 85610; 86038; 86880

== ENCOUNTER 2022-02-10 01:06 | Outpatient (CLI) | payer MEDICAID, SELFPAY ==
[2022-02-10 16:00] LABS: Abs Immature Grans 0.05 10^3/uL (0.0-0.06); Absolute Basophil Count 0.06 10^3/uL (0.0-0.2); Absolute Eosinophil Count 0.44 10^3/uL (0.0-0.7); Absolute Lymphocyte Count 2.29 10^3/uL (1.2-3.4); Absolute Monocyte Count 0.65 10^3/uL (0.1-0.8); Absolute Neutrophil Count 6.18 10^3/uL (1.2-6.7); Basophils % 0.6; Eosinophils % 4.6; HCT 30.5 % (36.0-46.0); HGB 10.5 g/dL (11.2-15.7); Immature Grans % 0.5; Lymphocytes % 23.7; MCHC 34.4 % (32.0-36.0); MCV 102 fL (80-95); MPV 10.4 fL (8.0-11.0); Monocytes % 6.7; Neutrophils % 63.9; Platelet Count 366 10^3/uL (130-400); RDW-SD 67.1 fL; WBC 9.67 10^3/uL (4.4-10.8)
[2022-02-10 16:28] LABS: Anisocytosis 1+; Diff Comment RBC Morph Reviewed; Polychromasia Present
== END 2022-02-10 01:07 | disposition home or self-care (01) ==
LOC: LBO 01:06
PROVIDERS: PCP Physician Assistant; Visit Provider Internal Medicine Hematology
DX: D59.12 Cold autoimmune hemolytic anemia (principal); D72.829 Elevated white blood cell count, unspecified
CPT/HCPCS: 36415; 85025

== ENCOUNTER → 2022-02-14 01:43 | Outpatient (CLI) | payer MEDICAID, SELFPAY ==
--- NOTE | 2022-02-14 07:30 | DI.CT_ITS ---
Exam(s) CT ABDOMEN W EXAM: CT ABDOMEN W CLINICAL HISTORY: elevated tbil/clotted stent,diverticulitis,congenital abnormality,k57.92, TECHNIQUE: Imaging Protocol: Axial computed tomography images with coronal and sagittal reformatted images were created and reviewed CONTRAST MATERIAL: Intravenous: Omnipaque 350 contrast volume:100 mL Oral: Yes COMPARISON: CT CT ABDOMEN PELVIS W from 01/07/2022 MR MR ABDOMEN WO from 01/11/[address] ABDOMEN PELVIS W from 01/16/2022 FINDINGS: ABDOMEN: Lung Bases: Normal where visualized. There is a small hiatal hernia. Liver: The peripherally enhancing lesion in the posterior segment of the right lobe of the liver is a gain seen and is consistent with a hemangioma. There is a cyst seen in the caudate lobe of the liver . There is a ill-defined enhancing area in the posterior segment of the right lobe of the liver sonia uring 3.8 x 4.1 cm. There is no corresponding abnormality seen on the MRI from 01/11/2022. The liver is otherwise unremarkable. Portal, Superior Mesenteric, and Splenic Veins: Unremarkable. Gallbladder and Biliary Tract: Status post cholecystectomy. There is a biliary stent in place. Pneu mobilia is present. Pancreas: Normal density, no abnormal calcifications or inflammatory process. There is a stable cyst in the tail of the pancreas. Spleen: Normal. Adrenals: No masses seen. Kidneys: Normal size, contour and axis. No radiodense stones or obstructive uropathy. Stable renal cy sts. Abdominal Aorta: Abdominal portion non-dilated. Bowel: No obstruction or bowel wall thickening. Peritoneal Cavity: No ascites, collection or mesenteric inflammatory response. No free air. Lymph Nodes: Soft tissue has developed in the retroperitoneum anterior to the left adrenal gland and to the left of the celiac axis. This may represent adenopathy. Bones: Within normal limits for the patient's age. Grade 1 degenerative anterolisthesis of L4 on L5. Soft Tissues: Unremarkable. IMPRESSION: 1. New enhancing lesion in the posterior segment of the right lobe of the liver. Primary or metastat ic disease is suspected. An MRI of the liver is recommended for further evaluation. 2. Biliary stent with pneumobilia. Status post cholecystectomy. 3. Development of soft tissue in the retroperitoneum anterior to the left adrenal gland. This is non specific but adenopathy should be considered. RADIATION DOSE DELIVERED: 967.56mGy.cm Total DLP DATA REPOSITORY: All CT scans at this facility are submitted to the National Radiology Data Registry (NRDR) Dose Index Registry (DIR) with the [employer] (ACR). RADIATION OPTIMIZATION: All CT scans at this facility use at least one of these dose optimization te chniques: automated exposure control; mA and/or kV adjustment per patient size (includes targeted exa ms where dose is matched to clinical indication); or iterative reconstruction.
--- NOTE | 2022-02-14 07:30 | DI.CT_ITS ---
Exam(s) CT CHEST HIGH RESOLUTION EXAM: CT CHEST HIGH RESOLUTION CLINICAL HISTORY: anemia/sob,thrombocytopenia,,elevated wbc,d69.6,d72.829. TECHNIQUE: Imaging protocol: Axial computed tomography images were obtained and coronal and sagittal reformatted images were created and reviewed. COMPARISON: CT SINUS CT WITHOUT CONTRAST from 08/12/2009 CT ABD PELVIS WITH CONTRAST from 10/18/2012 CR XR CHEST 1V IN DI DEPT from 01/16/[address] ABDOMEN PELVIS W from 01/16/2022 FINDINGS: Tracheobronchial tree: Patent where visualized. Pulmonary parenchyma: No consolidation or dominant measurable mass. No architectural distortion. Ther e is a 5 mm nodule in the right upper lobe. There is no interstitial disease present. No pulmonary cystic disease is seen. Mediastinum and Yris: No dominant adenopathy or fluid collection. The esophagus is unremarkable.There is a small hiatal hernia. Thyroid gland: Unremarkable. Pleura: No effusion or pneumothorax. Heart: The heart is not dilated. No coronary artery calcifications are seen. No pericardial effusion. Aorta: Thoracic aorta non-dilated. Atherosclerosis. Upper abdomen: The patient has a biliary stent with pneumobilia. Status post cholecystectomy. Left renal cyst. Lymph nodes: Within normal limits. Soft tissues: Unremarkable. Bones:Within normal limits for the patient's age. IMPRESSION: 1. No pulmonary infiltrate. No evidence of pulmonary interstitial disease. 2. 5 mm nodule in the right upper lobe. In low risk patients, no routine follow-up is recommended. In high risk patients (those with history of smoking or other risk factors), optional CT scan in 12 m [facility] may be obtained. (Lor et al, 2017) Unexpected findings RADIATION DOSE DELIVERED: 605.65mGy.cm Total DLP 605.65mGy.cm Total DLP DATA REPOSITORY: All CT scans at this facility are submitted to the National Radiology Data Registry (NRDR) Dose Index Registry (DIR) with the [employer] (ACR). RADIATION OPTIMIZATION: All CT scans at this facility use at least one of these dose optimization te chniques: automated exposure control; mA and/or kV adjustment per patient size (includes targeted exa ms where dose is matched to clinical indication); or iterative reconstruction.
[2022-02-14] MEDS: Omnipaque 350 MG/ML 100 ML BTL IJ (14:29)
[2022-02-14] MEDS: Normal Saline Flush 10 ML SYR IVP (14:50)
== END ==
PROVIDERS: PCP Physician Assistant; Visit Provider Surgery
DX: D64.9 Anemia, unspecified (principal); D69.6 Thrombocytopenia, unspecified; D72.829 Elevated white blood cell count, unspecified; K57.92 Diverticulitis of intestine, part unspecified, without perforation or abscess without bleeding; Q45.3 Other congenital malformations of pancreas and pancreatic duct; R17 Unspecified jaundice; Z98.890 Other specified postprocedural states; R91.1 Solitary pulmonary nodule
CPT/HCPCS: 71250; 74160; J3490

== ENCOUNTER 2022-02-16 04:21 | Outpatient (CLI) | payer MEDICAID, SELFPAY ==
[2022-02-16 13:10] LABS: Abs Immature Grans 0.05 10^3/uL (0.0-0.06); Absolute Basophil Count 0.06 10^3/uL (0.0-0.2); Absolute Eosinophil Count 0.46 10^3/uL (0.0-0.7); Absolute Lymphocyte Count 2.28 10^3/uL (1.2-3.4); Absolute Monocyte Count 0.72 10^3/uL (0.1-0.8); Absolute Neutrophil Count 6.87 10^3/uL (1.2-6.7); Basophils % 0.6; Eosinophils % 4.4; HCT 27.9 % (36.0-46.0); HGB 9.5 g/dL (11.2-15.7); Immature Grans % 0.5; Lymphocytes % 21.8; MCH 33.1 pg (27.0-33.0); MCHC 34.1 % (32.0-36.0); MCV 97 fL (80-95); MPV 10.2 fL (8.0-11.0); Monocytes % 6.9; Neutrophils % 65.8; Platelet Count 327 10^3/uL (130-400); RBC 2.87 10^6/uL (3.93-5.22); RDW 16.9 % (11.7-14.6); RDW-SD 58.3 fL; WBC 10.44 10^3/uL (4.4-10.8)
== END 2022-02-16 04:22 | disposition home or self-care (01) ==
LOC: LBO 04:21
PROVIDERS: PCP Physician Assistant; Visit Provider Internal Medicine Hematology
DX: D59.12 Cold autoimmune hemolytic anemia (principal); D75.839 Thrombocytosis, unspecified; D72.829 Elevated white blood cell count, unspecified
CPT/HCPCS: 36415; 85025

== ENCOUNTER 2022-03-02 02:32 | Outpatient (CLI) | payer MEDICAID, SELFPAY ==
[2022-03-02 13:17] LABS: Abs Immature Grans 0.12 10^3/uL (0.0-0.06); Absolute Basophil Count 0.07 10^3/uL (0.0-0.2); Absolute Lymphocyte Count 2.46 10^3/uL (1.2-3.4); Absolute Monocyte Count 0.61 10^3/uL (0.1-0.8); Absolute Neutrophil Count 7.48 10^3/uL (1.2-6.7); Basophils % 0.6; Eosinophils % 1.8; HCT 23.2 % (36.0-46.0); HGB 7.8 g/dL (11.2-15.7); Immature Grans % 1.1; Lymphocytes % 22.5; MCH 34.2 pg (27.0-33.0); MCHC 33.6 % (32.0-36.0); MCV 102 fL (80-95); MPV 10.3 fL (8.0-11.0); Monocytes % 5.6; Neutrophils % 68.4; Nucleated RBC 0.4 % (0.0-0.3); Platelet Count 435 10^3/uL (130-400); RBC 2.28 10^6/uL (3.93-5.22); RDW 18.6 % (11.7-14.6); RDW-SD 60.9 fL; WBC 10.94 10^3/uL (4.4-10.8)
[2022-03-02 13:51] LABS: Bilirubin, Direct 0.5 mg/dL (0.0-0.2)
[2022-03-02 13:55] LABS: ALT 33 U/L (14-59); AST 23 U/L (15-37); Albumin 4.2 g/dL (3.4-5.0); Alkaline Phosphatase 130 U/L (46-116); Anion Gap 10.2 mmol/L (3-11); BUN 17 mg/dL (7-18); Bilirubin, Total 7.6 mg/dL (0.2-1.0); CO2 25.8 mmol/L (21.0-32.0); CREATININE 0.9 mg/dL (0.55-1.02); Chloride 106 mmol/L (98-107); Estimated GFR 72.28 (mL/min/1.73m2); Glucose 127 mg/dL (74-106); LDH 222 U/L (81-234); Lipase 98 U/L (73-393); Potassium 3.4 mmol/L (3.5-5.1); Sodium 142 mmol/L (136-145); Total Protein 7.3 g/dL (6.4-8.2)
[2022-03-02 14:02] LABS: Iron 174 ug/dL (50-170); Total Iron Binding Capacity 285 ug/dL (250-450); Transferrin Sat 61 % (15-50)
[2022-03-02 14:48] LABS: Ferritin 1914 ng/mL (8-252)
[2022-03-06 09:57] LABS: Haptoglobin <7 mg/dL (32-197)
== END 2022-03-02 02:33 | disposition home or self-care (01) ==
LOC: LBO 02:32
PROVIDERS: Surgery; PCP Physician Assistant; Visit Provider Internal Medicine Hematology
DX: D64.9 Anemia, unspecified (principal); D72.829 Elevated white blood cell count, unspecified; D75.839 Thrombocytosis, unspecified; K85.90 Acute pancreatitis without necrosis or infection, unspecified; K91.89 Other postprocedural complications and disorders of digestive system; Q45.3 Other congenital malformations of pancreas and pancreatic duct; R17 Unspecified jaundice; R93.2 Abnormal findings on diagnostic imaging of liver and biliary tract
CPT/HCPCS: 36415; 80053; 83690; 86850; 86900; 86901; 86920; 82248; 82728; 83010; 83540; 83550; 83615; 85025; 85045

== ENCOUNTER 2022-03-03 07:37 | Outpatient (RCR) | payer MEDICAID, SELFPAY ==
[2022-03-02 16:18] LABS: Abs Immature Grans 0.22 10^3/uL (0.0-0.06); Absolute Basophil Count 0.11 10^3/uL (0.0-0.2); Absolute Eosinophil Count 0.18 10^3/uL (0.0-0.7); Absolute Lymphocyte Count 2.61 10^3/uL (1.2-3.4); Absolute Monocyte Count 1.12 10^3/uL (0.1-0.8); Basophils % 0.8; Eosinophils % 1.3; HGB 7.9 g/dL (11.2-15.7); Immature Grans % 1.6; Lymphocytes % 18.9; MCH 36.2 pg (27.0-33.0); MCHC 34.3 % (32.0-36.0); MCV 106 fL (80-95); MPV 10.3 fL (8.0-11.0); Monocytes % 8.1; Neutrophils % 69.3; Nucleated RBC 0.4 % (0.0-0.3); Platelet Count 454 10^3/uL (130-400); RBC 2.18 10^6/uL (3.93-5.22); RDW-SD 63.8 fL; WBC 13.83 10^3/uL (4.4-10.8)
[2022-03-02 16:23] LABS: Absolute Neutrophil Count 9.58 10^3/uL (1.2-6.7)
[2022-03-02 16:36] LABS: ALT 37 U/L (14-59); AST 23 U/L (15-37); Albumin 4.4 g/dL (3.4-5.0); Alkaline Phosphatase 132 U/L (46-116); Anion Gap 8.4 mmol/L (3-11); BUN 23 mg/dL (7-18); Bilirubin, Total 6.8 mg/dL (0.2-1.0); CO2 26.6 mmol/L (21.0-32.0); Calcium 9.1 mg/dL (8.5-10.1); Chloride 105 mmol/L (98-107); Glucose 105 mg/dL (74-106); Potassium 3.6 mmol/L (3.5-5.1); Sodium 140 mmol/L (136-145); Total Protein 7.4 g/dL (6.4-8.2)
[2022-03-02 16:38] LABS: Anisocytosis 2+; Diff Comment RBC Morph Reviewed; Macrocytosis 2+
[2022-03-02 16:39] LABS: Polychromasia Present
[2022-03-03] VITALS (9 sets, daily range): BP systolic 116–150; BP diastolic 70–88; PULSE 60–77; RESP 16–18; TEMP 35.9–36.9; O2SAT 97–100
[2022-03-03] MEDS: Normal Saline Flush 10 ML SYR IVP (14:25)
== END 2022-03-20 23:59 | disposition home or self-care (01) ==
LOC: INF 07:37
PROVIDERS: PCP Physician Assistant; Visit Provider Surgery
DX: D64.9 Anemia, unspecified (principal); R53.83 Other fatigue
CPT/HCPCS: 36415; 36430; 80053; 86850; 86900; 86901; 86920; 85025; P9016

== ENCOUNTER 2022-03-09 03:58 | Outpatient (CLI) | payer MEDICAID, SELFPAY ==
[2022-03-09 12:51] LABS: Abs Immature Grans 0.04 10^3/uL (0.0-0.06); Absolute Basophil Count 0.05 10^3/uL (0.0-0.2); Absolute Eosinophil Count 0.28 10^3/uL (0.0-0.7); Absolute Lymphocyte Count 1.68 10^3/uL (1.2-3.4); Absolute Monocyte Count 0.71 10^3/uL (0.1-0.8); Absolute Neutrophil Count 6.84 10^3/uL (1.2-6.7); Basophils % 0.5; Eosinophils % 2.9; HGB 10.2 g/dL (11.2-15.7); Immature Grans % 0.4; Lymphocytes % 17.5; MCH 33.6 pg (27.0-33.0); MCV 99 fL (80-95); MPV 10.3 fL (8.0-11.0); Monocytes % 7.4; Neutrophils % 71.3; Platelet Count 316 10^3/uL (130-400); RBC 3.04 10^6/uL (3.93-5.22); RDW-SD 58.6 fL
[2022-03-09 13:12] LABS: ALT 69 U/L (14-59); AST 42 U/L (15-37); Albumin 4.1 g/dL (3.4-5.0); Alkaline Phosphatase 138 U/L (46-116); Bilirubin, Direct 0.4 mg/dL (0.0-0.2); Total Protein 7.2 g/dL (6.4-8.2)
[2022-03-09 13:19] LABS: ALT 69 U/L (14-59); AST 40 U/L (15-37); Albumin 4.1 g/dL (3.4-5.0); Alkaline Phosphatase 138 U/L (46-116); Anion Gap 9.9 mmol/L (3-11); BUN 20 mg/dL (7-18); CO2 27.1 mmol/L (21.0-32.0); CREATININE 0.9 mg/dL (0.55-1.02); Calcium 9.1 mg/dL (8.5-10.1); Chloride 108 mmol/L (98-107); Estimated GFR 72.28 (mL/min/1.73m2); Glucose 106 mg/dL (74-106); LDH 240 U/L (81-234); Potassium 3.5 mmol/L (3.5-5.1); Sodium 145 mmol/L (136-145); Total Protein 7.2 g/dL (6.4-8.2)
[2022-03-10 09:47] LABS: Haptoglobin <7 mg/dL (32-197)
== END 2022-03-09 03:59 | disposition home or self-care (01) ==
LOC: LBO 03:58
PROVIDERS: Surgery; PCP Physician Assistant; Visit Provider Internal Medicine Hematology
DX: D64.9 Anemia, unspecified (principal); D72.829 Elevated white blood cell count, unspecified; R17 Unspecified jaundice; R93.2 Abnormal findings on diagnostic imaging of liver and biliary tract; D75.839 Thrombocytosis, unspecified
CPT/HCPCS: 36415; 80053; 80076; 86850; 86900; 86901; 83010; 83615; 85025

== ENCOUNTER 2022-03-16 03:58 | Outpatient (CLI) | payer MEDICAID, SELFPAY ==
[2022-03-16 13:00] LABS: Abs Immature Grans 0.17 10^3/uL (0.0-0.06); Absolute Basophil Count 0.09 10^3/uL (0.0-0.2); Absolute Eosinophil Count 0.21 10^3/uL (0.0-0.7); Absolute Lymphocyte Count 1.88 10^3/uL (1.2-3.4); Absolute Neutrophil Count 7.67 10^3/uL (1.2-6.7); Basophils % 0.8; HCT 25.8 % (36.0-46.0); HGB 9.1 g/dL (11.2-15.7); Immature Grans % 1.6; Lymphocytes % 17.5; MCHC 35.3 % (32.0-36.0); MCV 102 fL (80-95); MPV 10.3 fL (8.0-11.0); Monocytes % 6.5; Neutrophils % 71.6; Nucleated RBC 0.5 % (0.0-0.3); Platelet Count 367 10^3/uL (130-400); RBC 2.53 10^6/uL (3.93-5.22); RDW 20.8 % (11.7-14.6); RDW-SD 61.7 fL; Reticulocyte 6.9 % (0.5-2.4); WBC 10.72 10^3/uL (4.4-10.8)
[2022-03-16 13:14] LABS: ALT 32 U/L (14-59); AST 17 U/L (15-37); Albumin 4.1 g/dL (3.4-5.0); Alkaline Phosphatase 151 U/L (46-116); Anion Gap 7.7 mmol/L (3-11); BUN 19 mg/dL (7-18); Bilirubin, Total 7.2 mg/dL (0.2-1.0); CO2 27.3 mmol/L (21.0-32.0); CREATININE 0.9 mg/dL (0.55-1.02); Calcium 9.2 mg/dL (8.5-10.1); Chloride 108 mmol/L (98-107); Estimated GFR 72.28 (mL/min/1.73m2); Glucose 135 mg/dL (74-106); LDH 223 U/L (81-234); Potassium 3.6 mmol/L (3.5-5.1); Sodium 143 mmol/L (136-145); Total Protein 7.1 g/dL (6.4-8.2)
[2022-03-16 13:21] LABS: Anisocytosis 2+; Polychromasia Present
[2022-03-17 09:15] LABS: Haptoglobin <7 mg/dL (32-197)
== END 2022-03-16 03:59 | disposition home or self-care (01) ==
LOC: LBO 03:58
PROVIDERS: Surgery; PCP Physician Assistant; Visit Provider Internal Medicine Hematology
DX: D64.9 Anemia, unspecified (principal); D72.829 Elevated white blood cell count, unspecified; D75.839 Thrombocytosis, unspecified; R17 Unspecified jaundice; R93.2 Abnormal findings on diagnostic imaging of liver and biliary tract; D50.9 Iron deficiency anemia, unspecified; D59.12 Cold autoimmune hemolytic anemia
CPT/HCPCS: 36415; 80053; 86850; 86900; 86901; 83010; 83615; 85025; 85045; 86140

== ENCOUNTER 2022-03-23 03:04 | Outpatient (CLI) | payer MEDICAID, SELFPAY ==
[2022-03-23 12:15] LABS: Abs Immature Grans 0.15 10^3/uL (0.0-0.06); Absolute Basophil Count 0.08 10^3/uL (0.0-0.2); Absolute Lymphocyte Count 1.89 10^3/uL (1.2-3.4); Absolute Monocyte Count 0.59 10^3/uL (0.1-0.8); Absolute Neutrophil Count 7.38 10^3/uL (1.2-6.7); Basophils % 0.8; Eosinophils % 1.9; HCT 23.1 % (36.0-46.0); HGB 8.2 g/dL (11.2-15.7); Immature Grans % 1.5; Lymphocytes % 18.4; MCH 38.5 pg (27.0-33.0); MCHC 35.5 % (32.0-36.0); MCV 109 fL (80-95); MPV 10.3 fL (8.0-11.0); Monocytes % 5.7; Neutrophils % 71.7; Nucleated RBC 0.9 % (0.0-0.3); Platelet Count 405 10^3/uL (130-400); RBC 2.13 10^6/uL (3.93-5.22); RDW 24.9 % (11.7-14.6); RDW-SD 69.1 fL; WBC 10.29 10^3/uL (4.4-10.8)
[2022-03-23 12:48] LABS: Anisocytosis 2+; Diff Comment RBC Morph Reviewed; Macrocytosis 2+; Polychromasia Present
[2022-03-23 13:10] LABS: ALT 27 U/L (14-59); AST 20 U/L (15-37); Albumin 4.3 g/dL (3.4-5.0); Alkaline Phosphatase 149 U/L (46-116); Anion Gap 8.2 mmol/L (3-11); BUN 20 mg/dL (7-18); Bilirubin, Total 6.7 mg/dL (0.2-1.0); CO2 28.8 mmol/L (21.0-32.0); CREATININE 0.9 mg/dL (0.55-1.02); Chloride 107 mmol/L (98-107); Estimated GFR 72.28 (mL/min/1.73m2); Glucose 108 mg/dL (74-106); LDH 238 U/L (81-234); Potassium 3.3 mmol/L (3.5-5.1); Sodium 144 mmol/L (136-145); Total Protein 7.5 g/dL (6.4-8.2)
[2022-03-27 09:39] LABS: Haptoglobin <7 mg/dL (32-197)
== END 2022-03-23 03:05 | disposition home or self-care (01) ==
LOC: LBO 03:05
PROVIDERS: Surgery; PCP Physician Assistant; Visit Provider Internal Medicine Hematology
DX: D59.12 Cold autoimmune hemolytic anemia (principal); D75.839 Thrombocytosis, unspecified; D72.829 Elevated white blood cell count, unspecified
CPT/HCPCS: 36415; 80053; 85045; 86900; 86901; 83010; 83615; 85025

== ENCOUNTER 2022-03-30 04:44 | Outpatient (CLI) | payer MEDICAID, SELFPAY ==
[2022-03-30 13:35] LABS: Abs Immature Grans 0.07 10^3/uL (0.0-0.06); Absolute Basophil Count 0.06 10^3/uL (0.0-0.2); Absolute Eosinophil Count 0.16 10^3/uL (0.0-0.7); Absolute Monocyte Count 0.66 10^3/uL (0.1-0.8); Absolute Neutrophil Count 6.08 10^3/uL (1.2-6.7); Basophils % 0.7; Eosinophils % 1.9; HCT 23.4 % (36.0-46.0); HGB 8.3 g/dL (11.2-15.7); Immature Grans % 0.8; Lymphocytes % 17.6; MCH 38.8 pg (27.0-33.0); MCHC 35.5 % (32.0-36.0); MCV 109 fL (80-95); MPV 10.2 fL (8.0-11.0); Monocytes % 7.7; Neutrophils % 71.3; Nucleated RBC 0.4 % (0.0-0.3); Platelet Count 384 10^3/uL (130-400); RBC 2.14 10^6/uL (3.93-5.22); RDW 23.8 % (11.7-14.6); RDW-SD 73.9 fL; WBC 8.53 10^3/uL (4.4-10.8)
[2022-03-30 14:04] LABS: ALT 24 U/L (14-59); AST 19 U/L (15-37); Alkaline Phosphatase 132 U/L (46-116); Anion Gap 9.3 mmol/L (3-11); BUN 20 mg/dL (7-18); Bilirubin, Total 6.5 mg/dL (0.2-1.0); CO2 26.7 mmol/L (21.0-32.0); Calcium 8.7 mg/dL (8.5-10.1); Chloride 108 mmol/L (98-107); Glucose 99 mg/dL (74-106); LDH 219 U/L (81-234); Potassium 3.8 mmol/L (3.5-5.1); Sodium 144 mmol/L (136-145)
[2022-03-30 14:06] LABS: Anisocytosis 1+
[2022-03-30 14:07] LABS: Macrocytosis 1+; Polychromasia Present
[2022-03-30 16:23] LABS: Reticulocyte 11.5 % (0.5-2.4)
[2022-03-31 10:34] LABS: Haptoglobin <7 mg/dL (32-197)
== END 2022-03-30 04:45 | disposition home or self-care (01) ==
PROVIDERS: Surgery; PCP Physician Assistant; Visit Provider Internal Medicine Hematology
DX: D64.9 Anemia, unspecified (principal); D59.12 Cold autoimmune hemolytic anemia
CPT/HCPCS: 36415; 80053; 86850; 86900; 86901; 83010; 83615; 85025; 85045

== ENCOUNTER → 2022-04-04 02:52 | Outpatient (CLI) | payer MEDICAID, SELFPAY ==
--- NOTE | 2022-04-04 06:45 | DI.MRI_ITS ---
Exam(s) MR ABDOMEN WO/W EXAM: MR ABDOMEN WO/W CLINICAL HISTORY: abscess vs cancer in liver,abnl CT 02/14,r93.2 TECHNIQUE: Multiplanar multisequence MRI was performed with both pre and post contrast infused seque nces. Contrast injected sequences were performed following IV injection of 14 cc of Dotarem. COMPARISON: CT CT ABDOMEN PELVIS W from 03/25/[address] ABDOMEN PELVIS W from 04/27/2021 MR MR ABDOMEN WO from 01/11/[address] ABDOMEN W from 02/14/2022 FINDINGS: VISUALIZED LUNG BASES: No pleural effusions evident. There is no ascites evident. LIVER: Again noted is a previously described 1.6 x 1.2 x 1.5 cm lesion in the right hepatic lobe whi ch is unchanged in size and signal characteristics, and there are no new additional liver lesions osorio dent. Following contrast injection this exhibits progressive centripetal enhancement is most probabl y a cavernous hemangioma. Less likely to be a metastatic lesion. There are no new additional liver lesions evident. Small sub cm cyst in the caudate lobe is unchanged. There is a 1-2 millimeter tiny cyst also evident in the right hepatic lobe. BILIARY: Gallbladder is again noted be surgically absent. The CBD is not dilated. PANCREAS: No new pancreatic mass nor dilatation of the pancreatic duct. SPLEEN: Spleen is not enlarged and there are no intrasplenic lesions.Splenic and portal veins are pat ent ADRENALS: There are no significant adrenal masses. KIDNEYS: No solid renal masses. No hydronephrosis.Left kidney cyst again noted, stable. ABDOMINAL AORTA: Not enlarged and there is no significant para-aortic adenopathy. ANTERIOR ABDOMINAL WALL/GI: There is no evidence of significant anterior abdominal wall hernia in the field of view of this study.Is no evidence of obvious bowel obstruction. OSSEOUS: There are no lytic osseous lesions in the field of view of this study. IMPRESSION: 1. Stable appearance of the previously described 16 x 12 x 15 millimeters lesion in the right hepati c lobe. This enhances centripetally and is most probably a cavernous hemangioma. 2. Stable small cyst in the caudate lobe measuring less than 1 cm 3. No new pancreatic findings. 4. Benign left kidney cyst again noted. Tiny cortical cysts in the right kidney. No solid renal ma sses. DATA REPOSITORY:
[2022-04-04] MEDS: Normal Saline - Diluent 50 ML VIAL 25 ML IJ (08:47)
[2022-04-04] MEDS: Gadoterate meglumine 20 ML VIAL 14 ML IVP (08:49)
== END ==
PROVIDERS: PCP Physician Assistant; Visit Provider Surgery
DX: R93.2 Abnormal findings on diagnostic imaging of liver and biliary tract (principal); N28.1 Cyst of kidney, acquired; R91.8 Other nonspecific abnormal finding of lung field
CPT/HCPCS: 74183

== ENCOUNTER 2022-04-06 03:25 | Outpatient (CLI) | payer MEDICAID, SELFPAY ==
[2022-04-06 12:22] LABS: Abs Immature Grans 0.08 10^3/uL (0.0-0.06); Absolute Basophil Count 0.06 10^3/uL (0.0-0.2); Absolute Eosinophil Count 0.19 10^3/uL (0.0-0.7); Absolute Lymphocyte Count 1.78 10^3/uL (1.2-3.4); Absolute Monocyte Count 0.59 10^3/uL (0.1-0.8); Absolute Neutrophil Count 6.36 10^3/uL (1.2-6.7); Basophils % 0.7; Eosinophils % 2.1; HCT 25.3 % (36.0-46.0); HGB 8.7 g/dL (11.2-15.7); Immature Grans % 0.9; Lymphocytes % 19.6; MCH 37.5 pg (27.0-33.0); MCHC 34.4 % (32.0-36.0); MCV 109 fL (80-95); Monocytes % 6.5; Neutrophils % 70.2; Nucleated RBC 0.2 % (0.0-0.3); Platelet Count 341 10^3/uL (130-400); RBC 2.32 10^6/uL (3.93-5.22); RDW 22.8 % (11.7-14.6); RDW-SD 73.8 fL; WBC 9.06 10^3/uL (4.4-10.8)
[2022-04-06 12:33] LABS: Anisocytosis 1+; Macrocytosis 1+; Polychromasia Present
== END 2022-04-06 03:26 | disposition home or self-care (01) ==
LOC: LBO 03:25
PROVIDERS: Surgery; PCP Physician Assistant; Visit Provider Internal Medicine Hematology
DX: D64.9 Anemia, unspecified (principal); D59.12 Cold autoimmune hemolytic anemia; D75.839 Thrombocytosis, unspecified; D72.829 Elevated white blood cell count, unspecified
CPT/HCPCS: 36415; 86850; 86900; 86901; 85025

== ENCOUNTER 2022-04-12 03:21 | Outpatient (CLI) | payer MEDICAID, SELFPAY ==
[2022-04-12 14:52] LABS: Abs Immature Grans 0.05 10^3/uL (0.0-0.06); Absolute Basophil Count 0.07 10^3/uL (0.0-0.2); Absolute Lymphocyte Count 1.88 10^3/uL (1.2-3.4); Absolute Monocyte Count 0.66 10^3/uL (0.1-0.8); Absolute Neutrophil Count 7.46 10^3/uL (1.2-6.7); Basophils % 0.7; Eosinophils % 1.9; HCT 27.8 % (36.0-46.0); HGB 9.6 g/dL (11.2-15.7); Immature Grans % 0.5; Lymphocytes % 18.2; MCH 36.9 pg (27.0-33.0); MCHC 34.5 % (32.0-36.0); MCV 107 fL (80-95); MPV 9.9 fL (8.0-11.0); Monocytes % 6.4; Neutrophils % 72.3; Platelet Count 343 10^3/uL (130-400); RDW 19.6 % (11.7-14.6); RDW-SD 66.7 fL; WBC 10.32 10^3/uL (4.4-10.8)
[2022-04-12 15:30] LABS: ALT 25 U/L (14-59); AST 21 U/L (15-37); Albumin 4.2 g/dL (3.4-5.0); Alkaline Phosphatase 143 U/L (46-116); Anion Gap 5.3 mmol/L (3-11); BUN 24 mg/dL (7-18); Bilirubin, Total 4.2 mg/dL (0.2-1.0); CO2 28.7 mmol/L (21.0-32.0); CREATININE 1.1 mg/dL (0.55-1.02); Chloride 104 mmol/L (98-107); Estimated GFR 56.81 (mL/min/1.73m2); Glucose 106 mg/dL (74-106); LDH 226 U/L (81-234); Potassium 3.6 mmol/L (3.5-5.1); Sodium 138 mmol/L (136-145); Total Protein 7.1 g/dL (6.4-8.2)
[2022-04-13 09:21] LABS: Hepatitis B Surface Ag Negative (Negative)
[2022-04-13 10:12] LABS: Hep B Core Antibody Negative (Negative)
[2022-04-17 10:26] LABS: Haptoglobin <7 mg/dL (32-197)
== END 2022-04-12 03:22 | disposition home or self-care (01) ==
PROVIDERS: PCP Physician Assistant; Visit Provider Internal Medicine Hematology
DX: D59.12 Cold autoimmune hemolytic anemia (principal); Z11.59 Encounter for screening for other viral diseases; Z01.84 Encounter for antibody response examination
CPT/HCPCS: 36415; 80053; 86704; 86900; 86901; 87340; 83010; 83615; 85025

== ENCOUNTER 2022-04-19 03:36 | Outpatient (CLI) | payer MEDICAID, SELFPAY ==
[2022-04-19 13:47] LABS: Abs Immature Grans 0.13 10^3/uL (0.0-0.06); Absolute Eosinophil Count 0.22 10^3/uL (0.0-0.7); Absolute Monocyte Count 1.07 10^3/uL (0.1-0.8); Basophils % 0.9; Eosinophils % 1.9; HCT 27.4 % (36.0-46.0); HGB 9.2 g/dL (11.2-15.7); Immature Grans % 1.1; Lymphocytes % 17.1; MCHC 33.6 % (32.0-36.0); MCV 104 fL (80-95); MPV 9.9 fL (8.0-11.0); Monocytes % 9.1; Neutrophils % 69.9; Nucleated RBC 0.2 % (0.0-0.3); Platelet Count 433 10^3/uL (130-400); RBC 2.63 10^6/uL (3.93-5.22); RDW 15.9 % (11.7-14.6); RDW-SD 58.5 fL; Reticulocyte 7.6 % (0.5-2.4); WBC 11.72 10^3/uL (4.4-10.8)
[2022-04-19 13:50] LABS: Absolute Basophil Count 0.11 10^3/uL (0.0-0.2); Absolute Neutrophil Count 8.19 10^3/uL (1.2-6.7)
[2022-04-19 14:01] LABS: Uric Acid 5.4 mg/dL (2.6-6.0)
[2022-04-19 14:02] LABS: ALT 25 U/L (14-59); AST 20 U/L (15-37); Albumin 4.3 g/dL (3.4-5.0); Alkaline Phosphatase 144 U/L (46-116); BUN 21 mg/dL (7-18); Bilirubin, Total 5.5 mg/dL (0.2-1.0); CREATININE 1.2 mg/dL (0.55-1.02); Calcium 8.9 mg/dL (8.5-10.1); Chloride 103 mmol/L (98-107); Estimated GFR 51.18 (mL/min/1.73m2); Glucose 95 mg/dL (74-106); LDH 230 U/L (81-234); Potassium 3.9 mmol/L (3.5-5.1); Sodium 138 mmol/L (136-145); Total Protein 7.5 g/dL (6.4-8.2)
[2022-04-20 10:01] LABS: Haptoglobin <7 mg/dL (32-197)
[2022-04-20 15:06] LABS: Hepatitis B Surface Ag Negative (Negative)
[2022-04-20 15:37] LABS: Hep B Core Antibody Negative (Negative)
== END 2022-04-19 03:37 | disposition home or self-care (01) ==
LOC: LBO 03:36
PROVIDERS: PCP Physician Assistant; Visit Provider Internal Medicine Hematology
DX: D64.9 Anemia, unspecified (principal); D72.829 Elevated white blood cell count, unspecified; D75.839 Thrombocytosis, unspecified; R93.2 Abnormal findings on diagnostic imaging of liver and biliary tract; R17 Unspecified jaundice; R79.89 Other specified abnormal findings of blood chemistry
CPT/HCPCS: 36415; 80053; 86704; 86900; 86901; 87340; 83010; 83615; 84550; 85025; 85045

== ENCOUNTER 2022-04-28 09:45 | Outpatient (RCR) | payer MEDICAID, SELFPAY ==
[2022-04-26 14:07] LABS: Abs Immature Grans 0.29 10^3/uL (0.0-0.06); Absolute Basophil Count 0.06 10^3/uL (0.0-0.2); Absolute Eosinophil Count 0.24 10^3/uL (0.0-0.7); Absolute Lymphocyte Count 1.54 10^3/uL (1.2-3.4); Absolute Monocyte Count 0.96 10^3/uL (0.1-0.8); Absolute Neutrophil Count 8.24 10^3/uL (1.2-6.7); Basophils % 0.5; Eosinophils % 2.1; HGB 8.2 g/dL (11.2-15.7); Immature Grans % 2.6; Lymphocytes % 13.6; MCH 36.1 pg (27.0-33.0); MCHC 35.7 % (32.0-36.0); MCV 101 fL (80-95); MPV 9.9 fL (8.0-11.0); Monocytes % 8.5; Neutrophils % 72.7; Nucleated RBC 0.5 % (0.0-0.3); Platelet Count 403 10^3/uL (130-400); RBC 2.27 10^6/uL (3.93-5.22); RDW 17.2 % (11.7-14.6); RDW-SD 55.2 fL; WBC 11.33 10^3/uL (4.4-10.8)
[2022-04-26 14:31] LABS: ALT 30 U/L (14-59); AST 21 U/L (15-37); Alkaline Phosphatase 140 U/L (46-116); Anion Gap 9.8 mmol/L (3-11); BUN 21 mg/dL (7-18); Bilirubin, Total 6.3 mg/dL (0.2-1.0); CO2 24.2 mmol/L (21.0-32.0); Calcium 8.6 mg/dL (8.5-10.1); Chloride 108 mmol/L (98-107); Glucose 121 mg/dL (74-106); LDH 287 U/L (81-234); Potassium 4.1 mmol/L (3.5-5.1); Sodium 142 mmol/L (136-145); Total Protein 6.9 g/dL (6.4-8.2)
[2022-04-27 08:53] LABS: Hepatitis B Surface Ag Negative (Negative)
[2022-04-27 09:29] LABS: Hep B Core Antibody Negative (Negative)
[2022-04-27 11:26] LABS: Haptoglobin <7 mg/dL (32-197)
[2022-04-28 11:01] VITALS: BP 140/72; PULSE 85; RESP 17; TEMP 36.6; O2SAT 98
[2022-04-28 11:16] VITALS: BP 140/72; PULSE 85; RESP 16; TEMP 37; O2SAT 98
[2022-04-28 11:32] VITALS: BP 138/76; PULSE 79; RESP 16; TEMP 36.8; O2SAT 97
[2022-04-28 12:00] VITALS: BP 142/72; PULSE 82; RESP 16; TEMP 37.2; O2SAT 98
[2022-04-28 13:00] VITALS: BP 148/82; PULSE 90; RESP 16; TEMP 37; O2SAT 98
[2022-04-28] MEDS: Normal Saline Flush 10 ML SYR IVP (13:00)
== END 2022-05-20 23:59 | disposition home or self-care (01) ==
LOC: INF 09:45
PROVIDERS: PCP Physician Assistant; Visit Provider Internal Medicine Hematology
DX: D59.12 Cold autoimmune hemolytic anemia (principal)
CPT/HCPCS: 36415; 36430; 80053; 86704; 86850; 86900; 86901; 86920; 86945; 87340; 83010; 83615; 85025; 85045; P9016

== ENCOUNTER 2022-05-03 02:44 | Outpatient (CLI) | payer MEDICAID, SELFPAY ==
[2022-05-03 13:48] LABS: Abs Immature Grans 0.07 10^3/uL (0.0-0.06); Absolute Basophil Count 0.05 10^3/uL (0.0-0.2); Absolute Eosinophil Count 0.15 10^3/uL (0.0-0.7); Absolute Lymphocyte Count 1.42 10^3/uL (1.2-3.4); Absolute Monocyte Count 0.91 10^3/uL (0.1-0.8); Absolute Neutrophil Count 7.27 10^3/uL (1.2-6.7); Basophils % 0.5; Eosinophils % 1.5; HCT 28.5 % (36.0-46.0); HGB 9.7 g/dL (11.2-15.7); Immature Grans % 0.7; Lymphocytes % 14.4; MCH 33.4 pg (27.0-33.0); MCV 98 fL (80-95); MPV 9.7 fL (8.0-11.0); Monocytes % 9.2; Neutrophils % 73.7; Platelet Count 318 10^3/uL (130-400); RDW-SD 58.6 fL; Reticulocyte 8.4 % (0.5-2.4); WBC 9.87 10^3/uL (4.4-10.8)
[2022-05-03 14:33] LABS: ALT 28 U/L (14-59); AST 20 U/L (15-37); Albumin 4.2 g/dL (3.4-5.0); Alkaline Phosphatase 139 U/L (46-116); Anion Gap 8.9 mmol/L (3-11); BUN 22 mg/dL (7-18); Bilirubin, Total 6.4 mg/dL (0.2-1.0); CO2 27.1 mmol/L (21.0-32.0); CREATININE 1.2 mg/dL (0.55-1.02); Calcium 9.1 mg/dL (8.5-10.1); Chloride 105 mmol/L (98-107); Estimated GFR 51.18 (mL/min/1.73m2); Glucose 98 mg/dL (74-106); Potassium 3.9 mmol/L (3.5-5.1); Sodium 141 mmol/L (136-145); Total Protein 7.2 g/dL (6.4-8.2)
[2022-05-03 15:03] LABS: LDH 280 U/L (81-234)
[2022-05-04 09:52] LABS: Haptoglobin <7 mg/dL (32-197)
== END 2022-05-03 02:45 | disposition home or self-care (01) ==
LOC: LBO 02:45
PROVIDERS: PCP Physician Assistant; Visit Provider Internal Medicine Hematology
DX: D59.12 Cold autoimmune hemolytic anemia (principal); D64.9 Anemia, unspecified
CPT/HCPCS: 36415; 80053; 86900; 86901; 83010; 83615; 85025; 85045

== ENCOUNTER 2022-05-17 02:21 | Outpatient (CLI) | payer MEDICAID, SELFPAY ==
[2022-05-17 13:56] LABS: Abs Immature Grans 0.07 10^3/uL (0.0-0.06); Absolute Basophil Count 0.06 10^3/uL (0.0-0.2); Absolute Lymphocyte Count 1.36 10^3/uL (1.2-3.4); Absolute Monocyte Count 0.97 10^3/uL (0.1-0.8); Basophils % 0.5; Eosinophils % 1.6; HCT 31.2 % (36.0-46.0); HGB 10.7 g/dL (11.2-15.7); Immature Grans % 0.6; Lymphocytes % 11.1; MCH 34.3 pg (27.0-33.0); MCHC 34.3 % (32.0-36.0); MCV 100 fL (80-95); Monocytes % 7.9; Neutrophils % 78.3; Platelet Count 379 10^3/uL (130-400); RBC 3.12 10^6/uL (3.93-5.22); RDW 16.1 % (11.7-14.6); RDW-SD 57.1 fL; Reticulocyte 8.9 % (0.5-2.4); WBC 12.26 10^3/uL (4.4-10.8)
[2022-05-17 14:10] LABS: ALT 30 U/L (14-59); AST 22 U/L (15-37); Albumin 4.3 g/dL (3.4-5.0); Alkaline Phosphatase 137 U/L (46-116); Anion Gap 7.7 mmol/L (3-11); BUN 23 mg/dL (7-18); Bilirubin, Total 4.5 mg/dL (0.2-1.0); CO2 27.3 mmol/L (21.0-32.0); CREATININE 1.2 mg/dL (0.55-1.02); Calcium 8.9 mg/dL (8.5-10.1); Chloride 107 mmol/L (98-107); Estimated GFR 51.18 (mL/min/1.73m2); Glucose 120 mg/dL (74-106); LDH 215 U/L (81-234); Potassium 3.7 mmol/L (3.5-5.1); Sodium 142 mmol/L (136-145); Total Protein 7.2 g/dL (6.4-8.2)
[2022-05-18 10:10] LABS: Haptoglobin <7 mg/dL (32-197)
== END 2022-05-17 02:22 | disposition home or self-care (01) ==
LOC: LBO 02:21
PROVIDERS: PCP Physician Assistant; Visit Provider Internal Medicine Hematology
DX: D59.12 Cold autoimmune hemolytic anemia (principal); R79.89 Other specified abnormal findings of blood chemistry
CPT/HCPCS: 36415; 80053; 86900; 86901; 83010; 83615; 85025; 85045

== ENCOUNTER 2022-05-21 11:53 | Emergency (ER) | payer MEDICAID, SELFPAY ==
--- NOTE | 2022-05-21 11:45 | RT.EKG_ITS ---
APPROVED REPORT Exam: Resting ECG Reason for Exam: chest pain Patient Location: E HR:61 bpm ECG Measurements Heart Rate 61 AXIS [place] 114 P -23 QRSd 79 QRS 18 QT 407 T 31 QTc 411 Conclusion Sinus rhythm...normal P axis, V-rate 60- 99
[2022-05-21 12:03] VITALS: BP 176/85; PULSE 64; RESP 18; TEMP 36.6; O2SAT 99
--- NOTE | 2022-05-21 12:45 | DI.RAD_ITS ---
Exam(s) XR CHEST 2V PA LATERAL EXAM: XR CHEST 2V PA LATERAL CLINICAL HISTORY: chest pain TECHNIQUE: 2D digital imaging was performed. COMPARISON: CT CT ABDOMEN W from 02/14/2022 FINDINGS: HEART: Normal size. Aorta: Not dilated. PULMONARY VASCULATURE: Normal. LUNGS: Clear. PLEURAL SPACE: No pleural effusion or pneumothorax. BONE:Unremarkable for age. IMPRESSION: No acute abnormality. DATA REPOSITORY: RADIATION DOSE DELIVERED:
[2022-05-21 12:57] LABS: Abs Immature Grans 0.06 10^3/uL (0.0-0.06); Absolute Basophil Count 0.07 10^3/uL (0.0-0.2); Absolute Eosinophil Count 0.15 10^3/uL (0.0-0.7); Absolute Lymphocyte Count 1.04 10^3/uL (1.2-3.4); Absolute Monocyte Count 0.76 10^3/uL (0.1-0.8); Absolute Neutrophil Count 8.33 10^3/uL (1.2-6.7); Basophils % 0.7; Eosinophils % 1.4; HCT 30.6 % (36.0-46.0); HGB 10.5 g/dL (11.2-15.7); Immature Grans % 0.6; MCH 34.8 pg (27.0-33.0); MCHC 34.3 % (32.0-36.0); MCV 101 fL (80-95); MPV 10.3 fL (8.0-11.0); Monocytes % 7.3; Platelet Count 346 10^3/uL (130-400); RBC 3.02 10^6/uL (3.93-5.22); RDW-SD 54.1 fL; WBC 10.41 10^3/uL (4.4-10.8)
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
[2022-05-21 13:22] LABS: ALT 39 U/L (14-59); AST 25 U/L (15-37); Albumin 4.2 g/dL (3.4-5.0); Alkaline Phosphatase 132 U/L (46-116); Anion Gap 7.1 mmol/L (3-11); BUN 18 mg/dL (7-18); Bilirubin, Total 4.1 mg/dL (0.2-1.0); CO2 27.9 mmol/L (21.0-32.0); CREATININE 0.8 mg/dL (0.55-1.02); Calcium 8.7 mg/dL (8.5-10.1); Chloride 108 mmol/L (98-107); Estimated GFR 83.26 (mL/min/1.73m2); Glucose 95 mg/dL (74-106); Lipase 79 U/L (73-393); Potassium 3.5 mmol/L (3.5-5.1); Sodium 143 mmol/L (136-145); Total Protein 7.1 g/dL (6.4-8.2); Troponin I < 50 ng/L (<or=60)
[2022-05-21] MEDS: FAMOTIDINE 20 MG in Normal Saline 100 ML 400 MG IVPB (13:37)
[2022-05-21 13:39] VITALS: BP 167/74; PULSE 59; RESP 14; TEMP 36.6; O2SAT 99
--- NOTE | 2022-05-21 14:21 | DI.VRAD_ITS ---
PROCEDURE INFORMATION: Exam: XR Chest Exam date and time: 05/21/2022 1:50 PM Age: 62 years old Clinical indication: Pain; Other: Not specified TECHNIQUE: Imaging protocol: Radiologic exam of the chest. Views: 2 views. COMPARISON: CT CHEST HIGH RESOLUTION 02/14/2022 2:13 PM FINDINGS: Lungs: The lung parenchyma is clear. Pleural spaces: No pneumothorax. No pleural effusion. Heart/Mediastinum: The cardiomediastinal silhouette is within normal limits. Bones/joints: Unremarkable. IMPRESSION: No acute cardiopulmonary abnormality. Dictated and Authenticated by: Darrel Diaz MD. Ordering:LAYNE Westbrook MD
[2022-05-21 15:07] VITALS: BP 153/79; PULSE 58; RESP 16; TEMP 36.6; O2SAT 98
[2022-05-21 15:48] LABS: Troponin I < 50 ng/L (<or=60)
[2022-05-21 16:45] VITALS: BP 174/85; PULSE 58; RESP 22; TEMP 36.4; O2SAT 99
--- NOTE | 2022-05-21 17:42 | NUR.NOTE ---
Nursing Note: REFERRAL TO CM FOR PCP FOLLOW UP FOR SUNDAY, CHEST PAIN
== END 2022-05-21 17:05 | disposition home or self-care (01) ==
PROVIDERS: Emergency Provider Student in an Organized Health Care Education/Training Program; PCP Physician Assistant
DX: K21.9 Gastro-esophageal reflux disease without esophagitis (principal); I10 Essential (primary) hypertension
CPT/HCPCS: 80053; 83690; 93005; 96374; 99284; 71046; 83735; 84484; 85025; 93010

== ENCOUNTER 2022-05-24 04:47 | Outpatient (CLI) | payer MEDICAID, SELFPAY ==
[2022-05-24 14:02] LABS: Abs Immature Grans 0.03 10^3/uL (0.0-0.06); Absolute Basophil Count 0.08 10^3/uL (0.0-0.2); Absolute Eosinophil Count 0.18 10^3/uL (0.0-0.7); Absolute Lymphocyte Count 1.61 10^3/uL (1.2-3.4); Absolute Monocyte Count 0.83 10^3/uL (0.1-0.8); Basophils % 0.7; Eosinophils % 1.6; HCT 32.8 % (36.0-46.0); HGB 11.3 g/dL (11.2-15.7); Immature Grans % 0.3; Lymphocytes % 13.9; MCH 33.6 pg (27.0-33.0); MCHC 34.5 % (32.0-36.0); MCV 98 fL (80-95); MPV 10.4 fL (8.0-11.0); Monocytes % 7.2; Neutrophils % 76.3; Platelet Count 443 10^3/uL (130-400); RBC 3.36 10^6/uL (3.93-5.22); RDW 14.6 % (11.7-14.6); RDW-SD 51.5 fL; Reticulocyte 5.3 % (0.5-2.4); WBC 11.56 10^3/uL (4.4-10.8)
[2022-05-24 14:03] LABS: Absolute Neutrophil Count 8.82 10^3/uL (1.2-6.7)
[2022-05-24 14:33] LABS: ALT 39 U/L (14-59); AST 26 U/L (15-37); Albumin 4.5 g/dL (3.4-5.0); Alkaline Phosphatase 138 U/L (46-116); Anion Gap 7.5 mmol/L (3-11); BUN 19 mg/dL (7-18); CO2 26.5 mmol/L (21.0-32.0); CREATININE 1.2 mg/dL (0.55-1.02); Calcium 9.1 mg/dL (8.5-10.1); Chloride 109 mmol/L (98-107); Estimated GFR 51.18 (mL/min/1.73m2); Glucose 104 mg/dL (74-106); LDH 232 U/L (81-234); Potassium 3.8 mmol/L (3.5-5.1); Sodium 143 mmol/L (136-145); Total Protein 7.6 g/dL (6.4-8.2)
[2022-05-25 09:59] LABS: Haptoglobin 8 mg/dL (32-197)
== END 2022-05-24 04:48 | disposition home or self-care (01) ==
LOC: LBO 04:48
PROVIDERS: PCP Physician Assistant; Visit Provider Internal Medicine Hematology
DX: D59.12 Cold autoimmune hemolytic anemia (principal)
CPT/HCPCS: 36415; 80053; 85045; 86850; 86900; 86901; 83010; 83615; 85025

== ENCOUNTER 2022-05-31 03:09 | Outpatient (CLI) | payer MEDICAID, SELFPAY ==
[2022-05-31 14:00] LABS: Abs Immature Grans 0.05 10^3/uL (0.0-0.06); Absolute Basophil Count 0.09 10^3/uL (0.0-0.2); Absolute Eosinophil Count 0.19 10^3/uL (0.0-0.7); Absolute Lymphocyte Count 1.56 10^3/uL (1.2-3.4); Absolute Monocyte Count 0.77 10^3/uL (0.1-0.8); Absolute Neutrophil Count 6.77 10^3/uL (1.2-6.7); HCT 35.4 % (36.0-46.0); HGB 11.8 g/dL (11.2-15.7); Immature Grans % 0.5; Lymphocytes % 16.5; MCH 32.3 pg (27.0-33.0); MCHC 33.3 % (32.0-36.0); MCV 97 fL (80-95); MPV 10.4 fL (8.0-11.0); Monocytes % 8.2; Neutrophils % 71.8; Platelet Count 410 10^3/uL (130-400); RBC 3.65 10^6/uL (3.93-5.22); RDW 13.6 % (11.7-14.6); RDW-SD 48.7 fL; Reticulocyte 4.9 % (0.5-2.4); WBC 9.43 10^3/uL (4.4-10.8)
[2022-05-31 14:16] LABS: ALT 47 U/L (14-59); AST 30 U/L (15-37); Albumin 4.4 g/dL (3.4-5.0); Alkaline Phosphatase 159 U/L (46-116); BUN 18 mg/dL (7-18); Bilirubin, Total 3.1 mg/dL (0.2-1.0); CREATININE 0.9 mg/dL (0.55-1.02); Calcium 9.2 mg/dL (8.5-10.1); Chloride 107 mmol/L (98-107); Estimated GFR 72.28 (mL/min/1.73m2); Glucose 93 mg/dL (74-106); Sodium 143 mmol/L (136-145); Total Protein 7.4 g/dL (6.4-8.2)
[2022-05-31 14:34] LABS: LDH 210 U/L (81-234)
[2022-06-01 10:17] LABS: Haptoglobin <7 mg/dL (32-197)
== END 2022-05-31 03:10 | disposition home or self-care (01) ==
LOC: LBO 03:09
PROVIDERS: PCP Physician Assistant; Visit Provider Internal Medicine Hematology
DX: D59.12 Cold autoimmune hemolytic anemia (principal)
CPT/HCPCS: 36415; 80053; 86850; 86900; 86901; 83010; 83615; 85025; 85045

== ENCOUNTER 2022-06-07 03:05 | Outpatient (CLI) | payer MEDICAID, SELFPAY ==
[2022-06-07 13:53] LABS: Abs Immature Grans 0.03 10^3/uL (0.0-0.06); Absolute Basophil Count 0.11 10^3/uL (0.0-0.2); Absolute Eosinophil Count 0.21 10^3/uL (0.0-0.7); Absolute Lymphocyte Count 1.61 10^3/uL (1.2-3.4); Absolute Monocyte Count 0.91 10^3/uL (0.1-0.8); Absolute Neutrophil Count 7.42 10^3/uL (1.2-6.7); Basophils % 1.1; HCT 35.4 % (36.0-46.0); HGB 11.8 g/dL (11.2-15.7); Immature Grans % 0.3; Lymphocytes % 15.6; MCH 32.1 pg (27.0-33.0); MCHC 33.3 % (32.0-36.0); MCV 96 fL (80-95); MPV 10.4 fL (8.0-11.0); Monocytes % 8.8; Neutrophils % 72.2; Platelet Count 412 10^3/uL (130-400); RBC 3.68 10^6/uL (3.93-5.22); RDW 13.4 % (11.7-14.6); RDW-SD 47.1 fL; WBC 10.29 10^3/uL (4.4-10.8)
[2022-06-07 14:15] LABS: ALT 63 U/L (14-59); AST 36 U/L (15-37); Albumin 4.3 g/dL (3.4-5.0); Alkaline Phosphatase 162 U/L (46-116); Anion Gap 3.1 mmol/L (3-11); BUN 17 mg/dL (7-18); Bilirubin, Total 2.4 mg/dL (0.2-1.0); CO2 26.9 mmol/L (21.0-32.0); Calcium 9.3 mg/dL (8.5-10.1); Chloride 107 mmol/L (98-107); Glucose 131 mg/dL (74-106); Potassium 3.6 mmol/L (3.5-5.1); Sodium 137 mmol/L (136-145); Total Protein 7.3 g/dL (6.4-8.2)
[2022-06-07 17:15] LABS: Reticulocyte 4.6 % (0.5-2.4)
[2022-06-09 08:28] LABS: Haptoglobin <7 mg/dL (32-197)
== END 2022-06-07 03:06 | disposition home or self-care (01) ==
LOC: LBO 03:05
PROVIDERS: PCP Physician Assistant; Visit Provider Internal Medicine Hematology
DX: D59.12 Cold autoimmune hemolytic anemia (principal)
CPT/HCPCS: 36415; 80053; 86900; 86901; 83010; 83615; 85025; 85045

== ENCOUNTER 2022-06-14 02:10 | Outpatient (CLI) | payer MEDICAID, SELFPAY ==
[2022-06-14 13:49] LABS: Abs Immature Grans 0.07 10^3/uL (0.0-0.06); Absolute Basophil Count 0.12 10^3/uL (0.0-0.2); Absolute Eosinophil Count 0.21 10^3/uL (0.0-0.7); Absolute Lymphocyte Count 2.01 10^3/uL (1.2-3.4); Eosinophils % 1.8; HCT 35.7 % (36.0-46.0); HGB 11.8 g/dL (11.2-15.7); Immature Grans % 0.6; MCHC 33.1 % (32.0-36.0); MCV 97 fL (80-95); MPV 10.4 fL (8.0-11.0); Monocytes % 9.1; Neutrophils % 70.5; Platelet Count 423 10^3/uL (130-400); RBC 3.69 10^6/uL (3.93-5.22); RDW 13.3 % (11.7-14.6); RDW-SD 46.9 fL; Reticulocyte 4.7 % (0.5-2.4); WBC 11.81 10^3/uL (4.4-10.8)
[2022-06-14 13:50] LABS: Absolute Monocyte Count 1.07 10^3/uL (0.1-0.8); Absolute Neutrophil Count 8.33 10^3/uL (1.2-6.7)
[2022-06-14 14:21] LABS: ALT 55 U/L (14-59); AST 34 U/L (15-37); Albumin 4.4 g/dL (3.4-5.0); Alkaline Phosphatase 169 U/L (46-116); BUN 19 mg/dL (7-18); Bilirubin, Total 2.9 mg/dL (0.2-1.0); Calcium 9.2 mg/dL (8.5-10.1); Chloride 108 mmol/L (98-107); Glucose 103 mg/dL (74-106); LDH 241 U/L (81-234); Potassium 3.6 mmol/L (3.5-5.1); Sodium 143 mmol/L (136-145); Total Protein 7.6 g/dL (6.4-8.2)
[2022-06-15 11:06] LABS: Haptoglobin <7 mg/dL (32-197)
== END 2022-06-14 02:11 | disposition home or self-care (01) ==
LOC: LBO 02:10
PROVIDERS: PCP Physician Assistant; Visit Provider Internal Medicine Hematology
DX: D59.12 Cold autoimmune hemolytic anemia (principal)
CPT/HCPCS: 36415; 80053; 86900; 86901; 83010; 83615; 85025; 85045

== ENCOUNTER 2022-07-05 01:43 | Outpatient (CLI) | payer MEDICAID, SELFPAY ==
[2022-07-05 14:09] LABS: Abs Immature Grans 0.07 10^3/uL (0.0-0.06); Absolute Basophil Count 0.12 10^3/uL (0.0-0.2); Absolute Lymphocyte Count 2.05 10^3/uL (1.2-3.4); Absolute Monocyte Count 1.05 10^3/uL (0.1-0.8); Absolute Neutrophil Count 7.26 10^3/uL (1.2-6.7); Basophils % 1.1; Eosinophils % 1.9; HCT 35.7 % (36.0-46.0); HGB 12.1 g/dL (11.2-15.7); Immature Grans % 0.7; Lymphocytes % 19.1; MCH 31.8 pg (27.0-33.0); MCHC 33.9 % (32.0-36.0); MCV 94 fL (80-95); MPV 10.3 fL (8.0-11.0); Monocytes % 9.8; Neutrophils % 67.4; Platelet Count 430 10^3/uL (130-400); RBC 3.81 10^6/uL (3.93-5.22); RDW 13.9 % (11.7-14.6); RDW-SD 46.6 fL; WBC 10.75 10^3/uL (4.4-10.8)
[2022-07-05 15:43] LABS: ALT 49 U/L (14-59); AST 29 U/L (15-37); Albumin 4.5 g/dL (3.4-5.0); Alkaline Phosphatase 167 U/L (46-116); Anion Gap 9.7 mmol/L (3-11); BUN 18 mg/dL (7-18); Bilirubin, Total 3.1 mg/dL (0.2-1.0); CO2 27.3 mmol/L (21.0-32.0); CREATININE 0.8 mg/dL (0.55-1.02); Calcium 9.4 mg/dL (8.5-10.1); Chloride 105 mmol/L (98-107); Estimated GFR 83.26 (mL/min/1.73m2); Glucose 100 mg/dL (74-106); Potassium 3.8 mmol/L (3.5-5.1); Sodium 142 mmol/L (136-145); Total Protein 7.3 g/dL (6.4-8.2)
[2022-07-05 16:02] LABS: LDH 244 U/L (81-234)
[2022-07-06 09:32] LABS: Haptoglobin <7 mg/dL (32-197)
== END 2022-07-05 01:44 | disposition home or self-care (01) ==
PROVIDERS: Internal Medicine Hematology; PCP Physician Assistant; Visit Provider Nurse Practitioner Adult Health
DX: D64.9 Anemia, unspecified (principal); D59.12 Cold autoimmune hemolytic anemia
CPT/HCPCS: 36415; 80053; 86850; 86900; 86901; 83010; 83615; 85025; 85045

== ENCOUNTER 2022-07-19 03:00 | Outpatient (CLI) | payer MEDICAID, SELFPAY ==
[2022-07-19 13:43] LABS: Abs Immature Grans 0.06 10^3/uL (0.0-0.06); Absolute Eosinophil Count 0.22 10^3/uL (0.0-0.7); Absolute Lymphocyte Count 1.97 10^3/uL (1.2-3.4); Basophils % 0.9; Eosinophils % 1.9; HCT 37.2 % (36.0-46.0); HGB 12.8 g/dL (11.2-15.7); Immature Grans % 0.5; Lymphocytes % 16.9; MCH 31.4 pg (27.0-33.0); MCHC 34.4 % (32.0-36.0); MCV 91 fL (80-95); MPV 10.4 fL (8.0-11.0); Monocytes % 8.6; Neutrophils % 71.2; Platelet Count 430 10^3/uL (130-400); RBC 4.07 10^6/uL (3.93-5.22); RDW 14.1 % (11.7-14.6); RDW-SD 46.5 fL; Reticulocyte 4.2 % (0.5-2.4); WBC 11.66 10^3/uL (4.4-10.8)
[2022-07-19 14:05] LABS: ALT 45 U/L (14-59); AST 24 U/L (15-37); Albumin 4.3 g/dL (3.4-5.0); Alkaline Phosphatase 152 U/L (46-116); Anion Gap 6.7 mmol/L (3-11); BUN 17 mg/dL (7-18); Bilirubin, Total 2.5 mg/dL (0.2-1.0); CO2 28.3 mmol/L (21.0-32.0); CREATININE 0.9 mg/dL (0.55-1.02); Calcium 9.1 mg/dL (8.5-10.1); Chloride 106 mmol/L (98-107); Estimated GFR 72.28 (mL/min/1.73m2); Glucose 85 mg/dL (74-106); LDH 214 U/L (81-234); Potassium 4.3 mmol/L (3.5-5.1); Sodium 141 mmol/L (136-145); Total Protein 7.4 g/dL (6.4-8.2)
[2022-07-20 10:46] LABS: Haptoglobin <7 mg/dL (32-197)
== END 2022-07-19 03:01 | disposition home or self-care (01) ==
PROVIDERS: PCP Physician Assistant; Visit Provider Internal Medicine Hematology
DX: D59.12 Cold autoimmune hemolytic anemia (principal)
CPT/HCPCS: 36415; 80053; 86900; 86901; 83010; 83615; 85025; 85045

== ENCOUNTER 2022-08-02 02:32 | Outpatient (CLI) | payer MEDICAID, SELFPAY ==
[2022-08-02 13:56] LABS: Abs Immature Grans 0.04 10^3/uL (0.0-0.06); Absolute Basophil Count 0.06 10^3/uL (0.0-0.2); Absolute Lymphocyte Count 1.62 10^3/uL (1.2-3.4); Absolute Monocyte Count 0.88 10^3/uL (0.1-0.8); Absolute Neutrophil Count 8.96 10^3/uL (1.2-6.7); Basophils % 0.5; Eosinophils % 1.7; HCT 36.6 % (36.0-46.0); HGB 12.4 g/dL (11.2-15.7); Immature Grans % 0.3; Lymphocytes % 13.8; MCH 30.9 pg (27.0-33.0); MCHC 33.9 % (32.0-36.0); MCV 91 fL (80-95); Monocytes % 7.5; Neutrophils % 76.2; Platelet Count 396 10^3/uL (130-400); RBC 4.01 10^6/uL (3.93-5.22); RDW 13.8 % (11.7-14.6); RDW-SD 45.8 fL; Reticulocyte 4.2 % (0.5-2.4); WBC 11.76 10^3/uL (4.4-10.8)
[2022-08-02 14:19] LABS: ALT 61 U/L (14-59); AST 26 U/L (15-37); Albumin 4.3 g/dL (3.4-5.0); Alkaline Phosphatase 172 U/L (46-116); Anion Gap 7.6 mmol/L (3-11); BUN 14 mg/dL (7-18); CO2 28.4 mmol/L (21.0-32.0); CREATININE 0.9 mg/dL (0.55-1.02); Calcium 9.3 mg/dL (8.5-10.1); Chloride 106 mmol/L (98-107); Estimated GFR 72.28 (mL/min/1.73m2); Glucose 112 mg/dL (74-106); LDH 226 U/L (81-234); Potassium 3.4 mmol/L (3.5-5.1); Sodium 142 mmol/L (136-145); Total Protein 7.5 g/dL (6.4-8.2)
[2022-08-03 09:26] LABS: Haptoglobin 12 mg/dL (32-197)
== END 2022-08-02 02:33 | disposition home or self-care (01) ==
LOC: LBO 02:32
PROVIDERS: PCP Physician Assistant; Visit Provider Internal Medicine Hematology
DX: D59.12 Cold autoimmune hemolytic anemia (principal)
CPT/HCPCS: 36415; 80053; 83010; 83615; 85025; 85045

== ENCOUNTER 2022-09-27 02:13 | Outpatient (CLI) | payer MEDICAID, SELFPAY ==
[2022-09-27 13:58] LABS: Abs Immature Grans 0.03 10^3/uL (0.0-0.06); Absolute Basophil Count 0.04 10^3/uL (0.0-0.2); Absolute Eosinophil Count 0.15 10^3/uL (0.0-0.7); Absolute Lymphocyte Count 1.13 10^3/uL (1.2-3.4); Absolute Neutrophil Count 6.32 10^3/uL (1.2-6.7); Basophils % 0.5; Eosinophils % 1.8; HCT 36.9 % (36.0-46.0); HGB 12.4 g/dL (11.2-15.7); Immature Grans % 0.4; Lymphocytes % 13.5; MCH 31.8 pg (27.0-33.0); MCHC 33.6 % (32.0-36.0); MCV 95 fL (80-95); MPV 10.7 fL (8.0-11.0); Monocytes % 8.4; Neutrophils % 75.4; Platelet Count 350 10^3/uL (130-400); RDW 15.5 % (11.7-14.6); RDW-SD 53.4 fL; Reticulocyte 4.9 % (0.5-2.4); WBC 8.37 10^3/uL (4.4-10.8)
[2022-09-27 15:00] LABS: ALT 66 U/L (14-59); AST 30 U/L (15-37); Albumin 4.2 g/dL (3.4-5.0); Alkaline Phosphatase 157 U/L (46-116); Anion Gap 8.3 mmol/L (3-11); BUN 15 mg/dL (7-18); Bilirubin, Total 2.4 mg/dL (0.2-1.0); CO2 26.7 mmol/L (21.0-32.0); CREATININE 0.9 mg/dL (0.55-1.02); Chloride 108 mmol/L (98-107); Estimated GFR 72.28 (mL/min/1.73m2); Glucose 126 mg/dL (74-106); LDH 212 U/L (81-234); Potassium 3.9 mmol/L (3.5-5.1); Sodium 143 mmol/L (136-145); Total Protein 6.9 g/dL (6.4-8.2)
[2022-09-28 09:42] LABS: Haptoglobin 17 mg/dL (32-197)
== END 2022-09-27 02:14 | disposition home or self-care (01) ==
LOC: LBO 02:13
PROVIDERS: PCP Physician Assistant; Visit Provider Internal Medicine Hematology
DX: D59.12 Cold autoimmune hemolytic anemia (principal); D53.9 Nutritional anemia, unspecified
CPT/HCPCS: 36415; 80053; 83010; 83615; 85025; 85045

== ENCOUNTER 2023-01-04 05:23 | Outpatient (CLI) | payer MEDICAID, SELFPAY ==
[2023-01-04 13:02] LABS: Absolute Basophil Count 0.07 10^3/uL (0.0-0.2); Absolute Eosinophil Count 0.18 10^3/uL (0.0-0.7); Absolute Lymphocyte Count 1.53 10^3/uL (1.2-3.4); Absolute Monocyte Count 0.59 10^3/uL (0.1-0.8); Absolute Neutrophil Count 7.15 10^3/uL (1.2-6.7); Basophils % 0.7; Eosinophils % 1.9; HCT 26.8 % (36.0-46.0); HGB 8.8 g/dL (11.2-15.7); Lymphocytes % 15.9; MCH 33.1 pg (27.0-33.0); MCHC 32.8 % (32.0-36.0); MCV 101 fL (80-95); Monocytes % 6.1; Neutrophils % 74.4; Nucleated RBC 0.4 % (0.0-0.3); Platelet Count 399 10^3/uL (130-400); RBC 2.66 10^6/uL (3.93-5.22); RDW 19.5 % (11.7-14.6); RDW-SD 65.7 fL; Reticulocyte 13.5 % (0.5-2.4); WBC 9.62 10^3/uL (4.4-10.8)
[2023-01-04 13:35] LABS: ALT 38 U/L (14-59); AST 20 U/L (15-37); Albumin 4.1 g/dL (3.4-5.0); Alkaline Phosphatase 139 U/L (46-116); Anion Gap 9.6 mmol/L (3-11); BUN 18 mg/dL (7-18); Bilirubin, Total 5.9 mg/dL (0.2-1.0); CO2 27.4 mmol/L (21.0-32.0); CREATININE 0.8 mg/dL (0.55-1.02); Chloride 110 mmol/L (98-107); Estimated GFR 83.26 (mL/min/1.73m2); Glucose 124 mg/dL (74-106); LDH 236 U/L (81-234); Potassium 3.6 mmol/L (3.5-5.1); Sodium 147 mmol/L (136-145); Total Protein 7.2 g/dL (6.4-8.2)
[2023-01-05 08:40] LABS: Haptoglobin <7 mg/dL (32-197)
== END 2023-01-04 05:24 | disposition home or self-care (01) ==
LOC: LBO 05:23
PROVIDERS: PCP Physician Assistant; Visit Provider Internal Medicine Hematology
DX: D59.12 Cold autoimmune hemolytic anemia (principal); D53.9 Nutritional anemia, unspecified
CPT/HCPCS: 36415; 80053; 83010; 83615; 85025; 85045

== ENCOUNTER 2023-01-15 02:06 | Outpatient (RCR) | payer MEDICAID, SELFPAY ==
[2023-01-12 08:36] LABS: HGB 7.4 g/dL (11.2-15.7); MCHC 35.2 % (32.0-36.0); MCV 105 fL (80-95); MPV 10.3 fL (8.0-11.0); Platelet Count 328 10^3/uL (130-400); RDW 22.3 % (11.7-14.6); RDW-SD 65.7 fL; Reticulocyte 12.3 % (0.5-2.4); WBC 9.28 10^3/uL (4.4-10.8)
[2023-01-12 08:57] LABS: Bilirubin, Total 10.1 mg/dL (0.2-1.0); LDH 272 U/L (81-234)
[2023-01-12 09:55] VITALS: BP 132/74; PULSE 82; RESP 17; TEMP 36.9; O2SAT 100
[2023-01-12 10:10] VITALS: BP 146/84; PULSE 82; RESP 17; TEMP 37.1; O2SAT 99
[2023-01-12 10:25] VITALS: BP 120/70; PULSE 71; RESP 16; TEMP 37.1; O2SAT 99
[2023-01-12 11:39] LABS: Abs Immature Grans 0.09 10^3/uL (0.0-0.06); Absolute Basophil Count 0.03 10^3/uL (0.0-0.2); Absolute Lymphocyte Count 1.38 10^3/uL (1.2-3.4); Absolute Monocyte Count 1.03 10^3/uL (0.1-0.8); Absolute Neutrophil Count 6.87 10^3/uL (1.2-6.7); Basophils % 0.3; Eosinophils % 2.1; HCT 22.7 % (36.0-46.0); Immature Grans % 0.9; Lymphocytes % 14.4; MCHC 35.2 % (32.0-36.0); MCV 105 fL (80-95); MPV 10.2 fL (8.0-11.0); Monocytes % 10.7; Neutrophils % 71.6; Nucleated RBC 0.3 % (0.0-0.3); Platelet Count 282 10^3/uL (130-400); RBC 2.16 10^6/uL (3.93-5.22); RDW 23.2 % (11.7-14.6); RDW-SD 67.1 fL; Reticulocyte 11.4 % (0.5-2.4)
[2023-01-12 11:52] LABS: Anisocytosis 1+; Hypochromasia 1+; Macrocytosis 1+; Polychromasia Present
[2023-01-12 11:56] LABS: ALT 46 U/L (14-59); AST 24 U/L (15-37); Albumin 3.6 g/dL (3.4-5.0); Alkaline Phosphatase 111 U/L (46-116); Anion Gap 8.6 mmol/L (3-11); BUN 16 mg/dL (7-18); Bilirubin, Total 11.8 mg/dL (0.2-1.0); CO2 26.4 mmol/L (21.0-32.0); CREATININE 0.7 mg/dL (0.55-1.02); Calcium 8.9 mg/dL (8.5-10.1); Chloride 106 mmol/L (98-107); Estimated GFR 97.72 (mL/min/1.73m2); Glucose 102 mg/dL (74-106); LDH 258 U/L (81-234); Potassium 3.5 mmol/L (3.5-5.1); Sodium 141 mmol/L (136-145); Total Protein 6.2 g/dL (6.4-8.2)
[2023-01-12] MEDS: Normal Saline Flush 10 ML SYR IVP (14:57)
[2023-01-15 09:32] LABS: Haptoglobin <7 mg/dL (32-197)
== END 2023-01-18 23:59 | disposition home or self-care (01) ==
LOC: INF 02:06
PROVIDERS: PCP Physician Assistant; Visit Provider Internal Medicine Hematology
DX: D59.12 Cold autoimmune hemolytic anemia (principal)
CPT/HCPCS: 36415; 80053; 85027; 85045; 86850; 86900; 86901; 86920; 82247; 83010; 83615; 85025; P9016

== ENCOUNTER 2023-01-25 04:10 | Outpatient (RCR) | payer MEDICAID, SELFPAY | END 2023-02-17 23:59 | disposition home or self-care (01) | LOC: INF 04:10 | PROVIDERS: PCP Physician Assistant; Visit Provider Internal Medicine Hematology | DX: D59.12 Cold autoimmune hemolytic anemia (principal) | CPT/HCPCS: 36415; 85027; 82247; 83010; 83615; 85045 ==

== ENCOUNTER 2023-02-14 11:00 | Outpatient (RCR) | payer MEDICAID, SELFPAY ==
[2023-01-19 00:23] VITALS: BP 120/70; PULSE 71; RESP 16; TEMP 37.1
[2023-01-23 08:27] LABS: HCT 30.2 % (36.0-46.0); HGB 9.9 g/dL (11.2-15.7); MCHC 32.8 % (32.0-36.0); MCV 104 fL (80-95); MPV 10.2 fL (8.0-11.0); Platelet Count 322 10^3/uL (130-400); RBC 2.91 10^6/uL (3.93-5.22); RDW 17.9 % (11.7-14.6); RDW-SD 65.8 fL; WBC 8.75 10^3/uL (4.4-10.8)
[2023-01-23 08:41] LABS: ALT 27 U/L (14-59); AST 14 U/L (15-37); Albumin 3.8 g/dL (3.4-5.0); Alkaline Phosphatase 129 U/L (46-116); Anion Gap 8.4 mmol/L (3-11); BUN 14 mg/dL (7-18); Bilirubin, Total 3.7 mg/dL (0.2-1.0); CO2 26.6 mmol/L (21.0-32.0); CREATININE 0.9 mg/dL (0.55-1.02); Calcium 8.9 mg/dL (8.5-10.1); Chloride 108 mmol/L (98-107); Estimated GFR 72.28 (mL/min/1.73m2); Glucose 154 mg/dL (74-106); LDH 213 U/L (81-234); Potassium 4.2 mmol/L (3.5-5.1); Sodium 143 mmol/L (136-145); Total Protein 6.9 g/dL (6.4-8.2)
[2023-01-24 09:39] LABS: Haptoglobin 39 mg/dL (32-197)
[2023-01-25 09:18] LABS: HCT 31.1 % (36.0-46.0); HGB 10.2 g/dL (11.2-15.7); MCH 33.8 pg (27.0-33.0); MCHC 32.8 % (32.0-36.0); MCV 103 fL (80-95); MPV 10.2 fL (8.0-11.0); Platelet Count 382 10^3/uL (130-400); RBC 3.02 10^6/uL (3.93-5.22); RDW 17.7 % (11.7-14.6); RDW-SD 65.8 fL; WBC 12.19 10^3/uL (4.4-10.8)
[2023-01-25 09:37] LABS: Bilirubin, Total 2.6 mg/dL (0.2-1.0); LDH 186 U/L (81-234)
[2023-01-26 10:54] LABS: Haptoglobin 40 mg/dL (32-197)
[2023-01-30 08:04] LABS: HCT 33.8 % (36.0-46.0); HGB 11.4 g/dL (11.2-15.7); MCH 33.3 pg (27.0-33.0); MCHC 33.7 % (32.0-36.0); MCV 99 fL (80-95); MPV 10.4 fL (8.0-11.0); Platelet Count 399 10^3/uL (130-400); RBC 3.42 10^6/uL (3.93-5.22); RDW 15.5 % (11.7-14.6); RDW-SD 56.2 fL; Reticulocyte 5.1 % (0.5-2.4)
[2023-01-30 08:17] LABS: Bilirubin, Total 2.4 mg/dL (0.2-1.0); LDH 195 U/L (81-234)
[2023-01-31 09:03] LABS: Haptoglobin 37 mg/dL (32-197)
[2023-02-14 12:13] LABS: Abs Immature Grans 0.02 10^3/uL (0.0-0.06); Absolute Basophil Count 0.09 10^3/uL (0.0-0.2); Absolute Eosinophil Count 0.19 10^3/uL (0.0-0.7); Absolute Lymphocyte Count 1.34 10^3/uL (1.2-3.4); Absolute Monocyte Count 0.82 10^3/uL (0.1-0.8); Absolute Neutrophil Count 7.05 10^3/uL (1.2-6.7); Basophils % 0.9; HCT 36.9 % (36.0-46.0); HGB 12.3 g/dL (11.2-15.7); Immature Grans % 0.2; Lymphocytes % 14.1; MCH 31.7 pg (27.0-33.0); MCHC 33.3 % (32.0-36.0); MCV 95 fL (80-95); MPV 10.4 fL (8.0-11.0); Monocytes % 8.6; Neutrophils % 74.2; Platelet Count 355 10^3/uL (130-400); RBC 3.88 10^6/uL (3.93-5.22); RDW 13.8 % (11.7-14.6); RDW-SD 46.9 fL; Reticulocyte 3.2 % (0.5-2.4); WBC 9.51 10^3/uL (4.4-10.8)
[2023-02-14 12:28] LABS: ALT 45 U/L (14-59); AST 25 U/L (15-37); Albumin 3.9 g/dL (3.4-5.0); Alkaline Phosphatase 144 U/L (46-116); Anion Gap 7.3 mmol/L (3-11); BUN 17 mg/dL (7-18); Bilirubin, Total 2.1 mg/dL (0.2-1.0); CO2 27.7 mmol/L (21.0-32.0); CREATININE 0.8 mg/dL (0.55-1.02); Calcium 9.3 mg/dL (8.5-10.1); Chloride 107 mmol/L (98-107); Estimated GFR 82.74 (mL/min/1.73m2); Glucose 102 mg/dL (74-106); LDH 218 U/L (81-234); Potassium 3.7 mmol/L (3.5-5.1); Sodium 142 mmol/L (136-145); Total Protein 7.1 g/dL (6.4-8.2)
[2023-02-15 09:30] LABS: Haptoglobin <7 mg/dL (32-197)
== END 2023-02-17 23:59 | disposition home or self-care (01) ==
LOC: INF 11:00
PROVIDERS: PCP Physician Assistant; Visit Provider Internal Medicine Hematology
DX: D59.12 Cold autoimmune hemolytic anemia (principal)
CPT/HCPCS: 36415; 80053; 85027; 86900; 86901; 82247; 83010; 83615; 85025; 85045

== ENCOUNTER 2023-02-16 13:19 | Emergency (ER) | payer MEDICAID, SELFPAY ==
[2023-02-16 13:24] VITALS: BP 141/95; PULSE 79; RESP 18; TEMP 37.1; O2SAT 98
--- NOTE | 2023-02-16 14:00 | DI.CT_ITS ---
Exam(s) CT ABDOMEN PELVIS W EXAM: CT ABDOMEN PELVIS W CLINICAL HISTORY: abd pain, hx diverticulitis. TECHNIQUE: Imaging Protocol: Axial computed tomography images with coronal and sagittal reformatted images were created and reviewed CONTRAST MATERIAL: Intravenous: Omnipaque-350 100cc Oral: None COMPARISON: CT CT ABDOMEN W from 02/14/2022 FINDINGS: VISUALIZED LUNG BASES: No nodules nor pleural effusions evident. ABDOMEN: There is no ascites. LIVER: Element of steatosis again noted and pneumobilia. No new significant hepatic lesions. The il l-defined enhancing subcapsular region in the posterior right hepatic lobe is again noted. However, the lesion which was present at this location on the prior study is actually less evident on the pres ent study. This may be related to this being a hemangioma scan slightly later. Nevertheless, there are no new ominous liver lesions. The previously described small benign-appearing cyst in the caudat e lobe is unchanged. GALLBLADDER/BILIARY: Gallbladder is again noted to be surgically absent. The previously present CBD stent has been removed. CBD diameter is normal. No radiopaque calculi nor masses in this region. PANCREAS: Pancreatic head and uncinate process appear unremarkable and there are no new significant p ancreatic findings nor dilatation of the pancreatic duct. Previously described small cyst in the post creatic body is again noted. Pancreatic duct is not dilated. SPLEEN: Spleen is not enlarged. No obvious intrasplenic lesions. Splenic and portal veins are paten t. ADRENALS: There are no significant adrenal masses. KIDNEYS:Benign cysts in the kidneys again noted. No new significant renal lesions, calculi, or hydro nephrosis. Urinary bladder wall is uniformly thickened.. ABDOMINAL AORTA: Abdominal aorta is not enlarged. LYMPH NODES:There is no retroperitoneal nor paraaortic adenopathy. ABDOMINAL WALL: No evidence of significant anterior abdominal wall nor inguinal hernia. GI: There is no evidence of bowel obstruction, free air, nor abscess. Diameter of small bowel loops is upper normal. PELVIS: GI: No evidence of appendicitis.There is diverticulosis of the transverse colon. Less so in the desc ending-left colon. Few diverticuli noted in the sigmoid, uncomplicated. LYMPH NODES: There is no intrapelvic nor inguinal adenopathy. REPRODUCTIVE: Uterus size normal.. Slight prominence of the lower uterine segment. No adnexal caryn s. No free fluid. URINARY BLADDER: There is mild uniform thickening of the urinary bladder wall. May be partially rela elio to under distension. OSSEOUS: No fractures and no significant osseous lesions. IMPRESSION: 1. Compared to the prior CT scan of 02/14/2022 there has been interval removal of the self expanding- type CBD stent. CBD appears unremarkable on today's study. There is mild air within nondilated intr ahepatic ducts of the left hepatic lobe, not unexpected given the previous presence of a stent across the ampullary, as was previously the case.. 2. Stable tiny benign cyst in the caudate lobe of the liver and stable nonspecific enhancing subcapsu lar region in the posterior right hepatic lobe probably related to the presence of a benign hemangiom a. 3. No new pancreatic findings. No evidence of pancreatitis. 4. There are diverticuli in the transverse colon. No obvious acute diverticulitis. There is mild uniform thickening of the urinary bladder wall. Possibly related to under distension b ut cannot exclude cystitis. RADIATION DOSE DELIVERED: 877.25mGy.cm Total DLP DATA REPOSITORY: All CT scans at this facility are submitted to the National Radiology Data Registry (NRDR) Dose Index Registry (DIR) with the [employer] (ACR). RADIATION OPTIMIZATION: All CT scans at this facility use at least one of these dose optimization te chniques: automated exposure control; mA and/or kV adjustment per patient size (includes targeted exa ms where dose is matched to clinical indication); or iterative reconstruction.
--- NOTE | 2023-02-16 16:15 | RT.EKG_ITS ---
APPROVED REPORT Exam: Resting ECG Reason for Exam: epigastric pain Patient Location: E HR:63 bpm ECG Measurements Heart Rate 63 AXIS ME 126 P -41 QRSd 79 QRS 15 QT 420 T 25 QTc 430 Conclusion Sinus rhythm...normal P axis, V-rate 60- 99 Normal [place] Normal Electrocardiogram
[2023-02-16 16:21] LABS: Abs Immature Grans 0.04 10^3/uL (0.0-0.06); Absolute Basophil Count 0.09 10^3/uL (0.0-0.2); Absolute Eosinophil Count 0.11 10^3/uL (0.0-0.7); Absolute Lymphocyte Count 1.44 10^3/uL (1.2-3.4); Absolute Monocyte Count 1.32 10^3/uL (0.1-0.8); Basophils % 0.8; HCT 38.8 % (36.0-46.0); Immature Grans % 0.4; Lymphocytes % 12.8; MCH 31.1 pg (27.0-33.0); MCHC 33.5 % (32.0-36.0); MCV 93 fL (80-95); MPV 10.2 fL (8.0-11.0); Monocytes % 11.8; Neutrophils % 73.2; Platelet Count 376 10^3/uL (130-400); RBC 4.18 10^6/uL (3.93-5.22); RDW 13.6 % (11.7-14.6); RDW-SD 46.2 fL; WBC 11.22 10^3/uL (4.4-10.8)
[2023-02-16 16:23] LABS: Absolute Neutrophil Count 8.21 10^3/uL (1.2-6.7)
[2023-02-16 16:36] LABS: ALT 46 U/L (14-59); AST 28 U/L (15-37); Albumin 4.2 g/dL (3.4-5.0); Alkaline Phosphatase 144 U/L (46-116); Anion Gap 10.6 mmol/L (3-11); BUN 17 mg/dL (7-18); Bilirubin, Total 3.4 mg/dL (0.2-1.0); CO2 26.4 mmol/L (21.0-32.0); CREATININE 0.9 mg/dL (0.55-1.02); Calcium 9.5 mg/dL (8.5-10.1); Chloride 104 mmol/L (98-107); Estimated GFR 71.83 (mL/min/1.73m2); Glucose 95 mg/dL (74-106); Lipase 28 U/L (16-77); Potassium 3.5 mmol/L (3.5-5.1); Sodium 141 mmol/L (136-145); Total Protein 7.5 g/dL (6.4-8.2)
[2023-02-16 16:52] LABS: Troponin I < 50 ng/L (<or=60)
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
[2023-02-16] MEDS: Lactated Ringers 1,000 ML 1000 ML IV (17:15)
[2023-02-16] MEDS: Omnipaque 350 MG/ML 100 ML BTL IJ (18:11)
[2023-02-16] MEDS: Normal Saline - Diluent 50 ML VIAL IJ (18:11)
[2023-02-16] MEDS: Normal Saline Flush 10 ML SYR IVP (18:12)
[2023-02-16 18:40] VITALS: BP 144/88; PULSE 71; RESP 16; O2SAT 98
[2023-02-16 19:38] LABS: Bilirubin Negative (Negative); Blood Trace-intact (Negative); Clarity Clear (Clear); Glucose Negative (Negative); Ketones Negative (Negative); Leukocyte Esterase Negative (Negative); Nitrite Negative (Negative); Specific Gravity 1.015 (1.005-1.025); Urobilinogen 0.2 mg/dL (Up to 0.2); pH 8.5 (5-8)
[2023-02-16 19:43] LABS: Bacteria Negative HPF (Negative); C & S Indicated? No; Casts Negative LPF (Negative); Crystals Negative HPF (Negative); Epithelial Cells Negative HPF (Negative); Mucus Negative (Negative); RBC 0-2 HPF (0-2); WBC Negative HPF (0-5)
[2023-02-16 20:48] VITALS: BP 122/84; PULSE 71; RESP 17; TEMP 36.8; O2SAT 97
== END 2023-02-16 20:59 | disposition home or self-care (01) ==
PROVIDERS: Emergency Medicine Emergency Medical Services; Emergency Provider Physician Assistant; PCP Physician Assistant
DX: R10.11 Right upper quadrant pain (principal); R10.32 Left lower quadrant pain
CPT/HCPCS: 80053; 83690; 93005; 96360; 99285; 74177; 81003; 81015; 83735; 84484; 85025; 93010; 99284; J3490

== ENCOUNTER 2023-03-14 03:15 | Outpatient (RCR) | payer MEDICAID, SELFPAY ==
[2023-02-18 00:17] VITALS: BP 120/70; PULSE 71; RESP 16; TEMP 37.1
[2023-02-28 11:31] LABS: Abs Immature Grans 0.02 10^3/uL (0.0-0.06); Absolute Basophil Count 0.07 10^3/uL (0.0-0.2); Absolute Monocyte Count 1.11 10^3/uL (0.1-0.8); Absolute Neutrophil Count 2.43 10^3/uL (1.2-6.7); Basophils % 1.3; Eosinophils % 3.8; HCT 39.9 % (36.0-46.0); HGB 13.3 g/dL (11.2-15.7); Immature Grans % 0.4; Lymphocytes % 26.8; MCH 30.2 pg (27.0-33.0); MCHC 33.3 % (32.0-36.0); MCV 91 fL (80-95); MPV 10.3 fL (8.0-11.0); Monocytes % 21.2; Neutrophils % 46.5; Platelet Count 436 10^3/uL (130-400); RBC 4.41 10^6/uL (3.93-5.22); RDW-SD 42.7 fL; Reticulocyte 3.3 % (0.5-2.4); WBC 5.23 10^3/uL (4.4-10.8)
[2023-02-28 11:47] LABS: ALT 71 U/L (14-59); AST 40 U/L (15-37); Alkaline Phosphatase 143 U/L (46-116); Anion Gap 8.7 mmol/L (3-11); BUN 14 mg/dL (7-18); Bilirubin, Total 1.7 mg/dL (0.2-1.0); CO2 25.3 mmol/L (21.0-32.0); CREATININE 0.8 mg/dL (0.55-1.02); Calcium 9.3 mg/dL (8.5-10.1); Chloride 106 mmol/L (98-107); Estimated GFR 82.74 (mL/min/1.73m2); Glucose 113 mg/dL (74-106); LDH 229 U/L (81-234); Potassium 3.5 mmol/L (3.5-5.1); Sodium 140 mmol/L (136-145); Total Protein 7.2 g/dL (6.4-8.2)
[2023-03-01 09:04] LABS: Haptoglobin 7 mg/dL (32-197)
[2023-03-14 11:34] LABS: HCT 42.4 % (36.0-46.0); HGB 14.3 g/dL (11.2-15.7); MCH 30.2 pg (27.0-33.0); MCHC 33.7 % (32.0-36.0); MCV 90 fL (80-95); MPV 11.2 fL (8.0-11.0); Platelet Count 349 10^3/uL (130-400); RBC 4.74 10^6/uL (3.93-5.22); RDW 13.7 % (11.7-14.6); RDW-SD 44.1 fL; Reticulocyte 2.9 % (0.5-2.4); WBC 11.81 10^3/uL (4.4-10.8)
[2023-03-14 11:46] LABS: Bilirubin, Total 2.2 mg/dL (0.2-1.0); LDH 230 U/L (81-234)
[2023-03-15 09:44] LABS: Haptoglobin 9 mg/dL (32-197)
== END 2023-03-20 23:59 | disposition home or self-care (01) ==
LOC: INF 03:15
PROVIDERS: PCP Physician Assistant; Visit Provider Internal Medicine Hematology
DX: D59.12 Cold autoimmune hemolytic anemia (principal)
CPT/HCPCS: 36415; 80053; 85027; 86900; 86901; 82247; 83010; 83615; 85025; 85045

== ENCOUNTER 2023-03-23 06:23 | Day surgery (SDC) | payer MEDICAID, SELFPAY ==
[2023-03-23 06:50] VITALS: BP 184/104; PULSE 65; RESP 16; TEMP 36.7; O2SAT 98
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
[2023-03-23] MEDS: Tropicam./Phenyleph. (1/2.5%) 5 ML BTL OD ×3 (07:08→07:24)
[2023-03-23 07:10] VITALS: BMI 28.7
[2023-03-23] MEDS: Tetracaine 0.5% 4 ML BTL OD (07:37)
[2023-03-23] MEDS: Povidone-Iodine Ophth 30 ML BTL (07:37)
[2023-03-23] MEDS: Phenylephrine/Lidocaine (15/10) MG/ML 1 ML VIAL (07:43)
[2023-03-23] MEDS: Duovisc Viscoelastic System EACH 1 EACH (07:47)
[2023-03-23] MEDS: Lidocaine 1% Pres-Free 5 ML VIAL (07:47)
[2023-03-23] MEDS: Balanced Salt Soln.-PLUS 500 ML BAG OP (07:48)
--- NOTE | 2023-03-23 08:05 | W.PM.DSUDISC ---
Date of service: 03/23/23 Time of Service: 08:05 Discharge Plan Disposition Patient Disposition: Home Discharge Details Attending Provider: Alexis Schmidt Primary Care Provider: Bhanu Holland Home Meds and New Rx's Prescriptions: No Action rizatriptan 10 mg tablet,disintegrating 10 mg PO PRN Qty: 12 3RF Rx Instructions: Take one tab prn for headaches. May repeat after two hours. No more than 2 doses in 24 hours. lidocaine 5 % adhesive patch,medicated 1 patch topical DAILY Rx Instructions: leave on most painful area for up to 12 hrs magnesium oxide 400 mg magnesium tablet 400 mg PO DAILY Qty: 90 3RF riboflavin (vitamin B2) 100 mg tablet 200 mg PO BID Qty: 180 3RF folic acid 1 mg tablet 1 tab PO DAILY Patient Comments: 1 tablet by mouth once a day Rituxan 10 mg/mL concentrate 75 mg IV QWEEK Patient Comments: 75 mg per week X 4 weeks per hematology Rx Instructions: 75mg per week x4 weeks diclofenac sodium 1 % gel See Rx Instructions TOPICAL QID Patient Comments: Apply 1 a small amount to skin four times a day as needed for pain Rx Instructions: 1 small amount topically four times a day; Discharge Instructions Stand Alone Forms: Post-op Topical CataractAileen (DSU) Discharge Orders Discharge Orders: Discharge Order (Routine); Ordered 03/23/23 Ordered By: Alexis Schmidt DS: Diagnosis Discharge Diagnosis (1) Cortical age-related cataract, right eye: Status: Resolved (2) Nuclear age-related cataract, right eye: Status: Resolved (3) Posterior subcapsular age-related cataract, right eye: Status: Resolved
[2023-03-23 08:06] VITALS: BP 209/113; PULSE 72; RESP 18; TEMP 36.5; O2SAT 95
--- NOTE | 2023-03-23 08:07 | ROE_ITS ---
Date of service: 03/23/23 Time of Service: 08:07 Operative Note Operative Note DATE OF PROCEDURE: 03/23/23 PRE-OP DIAGNOSIS: Nuclear/cortical/posterior subcapsular cataract, right eye POST-OP DIAGNOSIS: same PROCEDURE: Cataract extraction using phacoemulsification with intraocular lens implant, right eye SURGEON: Alexis Schmidt ANESTHESIA TYPE: Local By Surgeon and MAC Refer to Anesthesia Record ESTIMATED BLOOD LOSS: 0 PATHOLOGY: none sent COMPLICATIONS: None Patient was transported to: same day Patient's condition: stable Implants: Brenton Clareon [id number] Indications: Progressive decreased vision due to cataract, right eye Procedure Description: CATARACT SURGERY OPERATIVE REPORT PREOPERATIVE DIAGNOSIS: Nuclear/cortical/posterior subcapsular cataract, right eye POSTOPERATIVE DIAGNOSIS: Same OPERATION: Cataract extraction using phacoemulsification with posterior chamber intraocular lens implant, right eye. IOL: IOL Chief Fundraising Officer/Model: Brenton Clareon [id number] IOL Power: + 20.0 diopters IOL Serial Number: [id number] Optic Diameter: 6.0mm Haptic/Overall Diameter: 13.0mm PHACO INFO: Brenton [employer] Vision System with OZil and Active Fluidics Cumulative Dispersed Energy (CDE): 8.75 seconds SURGEON: Alexis Schmidt MD, CHAU ANESTHESIA: Monitored Anesthesia Care (MAC), with local sub-tenon's anesthetic infiltration COMPLICATIONS: None SPECIMENS: None INDICATIONS FOR PROCEDURE: The patient is a 63-year-old lady with history of diminished visual acuity in her right eye secondary to the development of nuclear/cortical/posterior subcapsular cataract. She is significantly symptomatic that she desires ca taract surgery and attempt to improve and maximize her vision. See office notes for detailed information. PROCEDURE: The correct surgical eye was identified and marked as the right eye and the pupil was dilated in the preoperative area using mydriatics and cycloplegics. The dilated pupil size was 6.0 mm. Oral sedation was administered in the form of an Imprimis MKO Melt (midazolam 3mg/ketamine 25mg/ondansetron 2mg). The patient was brought to the operating room where cardiopulmonary monitoring was instituted and surgical time-out was performed, confirming the correct operative eye and IOL power. Topical anesthesia was administered and ophthalmic povidone-iodine 5% was instilled into the conjunctival fornices. The ayaan-ocular area was prepped with Betadine 10% solution and draped in the usual sterile fashion for intraocular surgery, including an aperture drape. A Tegaderm transparent film dressing was cut in half and used to cover the lashes and lid margins. Care was taken to sequester the lashes and lid margins under the Tegaderm dressing. A lid speculum was placed between the lids of the operative eye and the Claribel-Randy operating microscope was maneuvered into position. Nicola scissors were then used to make a conjunctival buttonhole approximately 6mm posterior to the limbus in the inferonasal quadrant. Blunt dissection was carried out to expose bare sclera, and a blunt-tipped sub-tenon?s anesthesia cannula was introduced and passed posteriorly along the globe where non- preserved plain lidocaine was injected into posterior sub-Tenon?s space. A sideport knife was used to make a paracentesis port. Intraocular phenylephrine/lidocaine was injected into the anterior chamber. The anterior chamber was then filled with viscoelastic. A keratome knife was used to construct a two--plane clear corneal tunnel extending 2.0mm into clear cornea. A flap was raised on the anterior capsule and capsulorhexis forceps were used to complete a continuous curvilinear capsulorhexis of 5.0 mm. Balanced salt solution was then used to perform cortical cleaving hydrodissection and nuclear hydrodelineation until the lens could be freely rotated within the capsular bag. The lens nucleus was then disassembled and removed within the capsular bag and iris plane using phacoemulsification. Residual cortical material was removed using the I/A handpiece. The posterior capsule was carefully polished to remove as much residual lens epithelial cells as safely possible. The capsular bag was then inflated and the anterior chamber deepened with cohesive viscoelastic. The lens implant described above was inserted into the capsular bag using the Brenton Autonome Injector. A Kuglen hook was used to dial the IOL into position. Residual viscoelastic was then removed first from posterior to the IOL, then from the anterior chamber using the I/A handpiece. The lens implant was noted to center nicely within the capsular bag. The incisions were stromally hydrated, and the anterior chamber was reformed using BSS. Then 0.5cc of moxifloxacin 1.0mg/ml were injected into the capsular bag and anterior chamber. The incisions were checked with a Weck spear and found to be secure. Several drops of ophthalmic povidone-iodine 5% were then applied to the eye followed by two drops of Imprimis combination prednisolone/moxifloxacin/nepafenac solution. The drapes were removed and a clear plastic protective eye shield was placed over the eye. The patient was then returned to Same Day Surgery in stable condition.
[2023-03-23 08:24] VITALS: BP 216/127; PULSE 69; RESP 18; TEMP 36.9; O2SAT 97
[2023-03-23 08:40] VITALS: BP 208/111; PULSE 71; RESP 18; O2SAT 95
--- NOTE | 2023-03-23 08:42 | W.ANESPOSTOP ---
Postoperative Evaluation Date, Time and Location Date Performed: 03/23/23 Time Performed: 08:42 Patient Location: Day Surgery Unit Vital Signs Most Recent Imported Vital Signs: Most Recent Vital Signs Temp Pulse Resp BP Pulse Ox 36.9 C 69 18 216/127 H 97 03/23/23 08:24 03/23/23 08:24 03/23/23 08:24 03/23/23 08:24 03/23/23 08:24 Pain Score Most Recent Pain Score: Most Recent Pain Score Pain Level 0 03/23/23 08:24 Assessment Mental Status: Awake (Alert & Oriented to Patient Baseline) Airway and Respiratory Function: Patent airway with normal (patient baseline) respiratory exam Cardiovascular Function: Hemodynamically Stable Hydration Status: Adequately Hydrated Nausea & Vomiting: No Nausea or Vomiting Pain: Pt. Denies Any Pain Peripheral Nerve Block: Other (Local by Dr. Schmidt) Teaching Patient Teaching: Advised to seek followup for the following concerns (See explanation) Concerns: Poorly Controlled Hypertension (Asymptomatic at this time: recommended she follow up with her PCP (reported she would try her tincture). I readvised she follow up with her PCP and educated signs and symptoms to call 911. )
== END 2023-03-23 09:01 | disposition home or self-care (01) ==
LOC: SUR 06:23
PROVIDERS: PCP Physician Assistant; Visit Provider Ophthalmology
PROC: (CPT 66984; principal; 2023-03-23 07:30)
DX: H25.011 Cortical age-related cataract, right eye (principal); H25.11 Age-related nuclear cataract, right eye; H25.041 Posterior subcapsular polar age-related cataract, right eye
CPT/HCPCS: 66984; 00123; V2632

== ENCOUNTER 2023-04-05 04:19 | Outpatient (RCR) | payer MEDICAID, SELFPAY ==
[2023-03-28 14:39] LABS: HCT 36.7 % (36.0-46.0); HGB 12.5 g/dL (11.2-15.7); MCH 30.5 pg (27.0-33.0); MCHC 34.1 % (32.0-36.0); MCV 90 fL (80-95); MPV 10.7 fL (8.0-11.0); Platelet Count 325 10^3/uL (130-400); RDW-SD 45.4 fL; Reticulocyte 2.7 % (0.5-2.4); WBC 11.59 10^3/uL (4.4-10.8)
[2023-03-28 14:59] LABS: Bilirubin, Total 1.6 mg/dL (0.2-1.0); LDH 220 U/L (81-234)
[2023-03-29 09:05] LABS: Haptoglobin 33 mg/dL (32-197)
[2023-04-05 13:32] LABS: Abs Immature Grans 0.09 10^3/uL (0.0-0.06); Absolute Basophil Count 0.09 10^3/uL (0.0-0.2); Absolute Eosinophil Count 0.23 10^3/uL (0.0-0.7); Basophils % 0.8; Eosinophils % 2.1; HCT 40.1 % (36.0-46.0); HGB 13.5 g/dL (11.2-15.7); Immature Grans % 0.8; MCH 30.2 pg (27.0-33.0); MCHC 33.7 % (32.0-36.0); MCV 90 fL (80-95); MPV 10.8 fL (8.0-11.0); Monocytes % 6.4; Neutrophils % 71.9; Platelet Count 390 10^3/uL (130-400); RBC 4.47 10^6/uL (3.93-5.22); RDW 14.4 % (11.7-14.6); RDW-SD 46.8 fL; Reticulocyte 3.3 % (0.5-2.4); WBC 10.86 10^3/uL (4.4-10.8)
[2023-04-05 13:33] LABS: Absolute Lymphocyte Count 1.95 10^3/uL (1.2-3.4); Absolute Neutrophil Count 7.81 10^3/uL (1.2-6.7)
[2023-04-05 13:54] LABS: ALT 46 U/L (14-59); AST 26 U/L (15-37); Albumin 3.9 g/dL (3.4-5.0); Alkaline Phosphatase 130 U/L (46-116); Anion Gap 7.6 mmol/L (3-11); BUN 15 mg/dL (7-18); Bilirubin, Total 1.9 mg/dL (0.2-1.0); CO2 27.4 mmol/L (21.0-32.0); CREATININE 0.9 mg/dL (0.55-1.02); Calcium 9.3 mg/dL (8.5-10.1); Chloride 107 mmol/L (98-107); Estimated GFR 71.83 (mL/min/1.73m2); Glucose 116 mg/dL (74-106); LDH 219 U/L (81-234); Potassium 3.8 mmol/L (3.5-5.1); Sodium 142 mmol/L (136-145); Total Protein 7.1 g/dL (6.4-8.2)
[2023-04-09 11:16] LABS: Haptoglobin 34 mg/dL (32-197)
== END 2023-04-19 23:59 | disposition home or self-care (01) ==
LOC: INF 04:19
PROVIDERS: PCP Physician Assistant; Visit Provider Internal Medicine Hematology
DX: D59.12 Cold autoimmune hemolytic anemia (principal)
CPT/HCPCS: 36415; 80053; 85027; 86900; 86901; 82247; 83010; 83615; 85025; 85045

== ENCOUNTER 2023-05-29 02:20 | Outpatient (RCR) | payer MEDICAID, SELFPAY ==
[2023-05-29 13:40] LABS: HCT 41.2 % (36.0-46.0); HGB 13.6 g/dL (11.2-15.7); MCV 94 fL (80-95); MPV 11.2 fL (8.0-11.0); Platelet Count 325 10^3/uL (130-400); RBC 4.39 10^6/uL (3.93-5.22); RDW 14.2 % (11.7-14.6); RDW-SD 49.3 fL; Reticulocyte 2.7 % (0.5-2.4); WBC 16.43 10^3/uL (4.4-10.8)
[2023-05-29 13:59] LABS: ALT 19 U/L (14-59); AST 12 U/L (15-37); Albumin 3.8 g/dL (3.4-5.0); Alkaline Phosphatase 121 U/L (46-116); Anion Gap 6.1 mmol/L (3-11); BUN 22 mg/dL (7-18); Bilirubin, Total 1.9 mg/dL (0.2-1.0); CO2 28.9 mmol/L (21.0-32.0); CREATININE 0.8 mg/dL (0.55-1.02); Calcium 9.3 mg/dL (8.5-10.1); Chloride 107 mmol/L (98-107); Estimated GFR 82.74 (mL/min/1.73m2); Glucose 85 mg/dL (74-106); Sodium 142 mmol/L (136-145); Total Protein 6.9 g/dL (6.4-8.2)
== END 2023-06-20 23:59 | disposition home or self-care (01) ==
LOC: INF 02:20
PROVIDERS: PCP Physician Assistant; Visit Provider Internal Medicine Hematology
DX: D59.12 Cold autoimmune hemolytic anemia (principal)
CPT/HCPCS: 36415; 80053; 85027; 86850; 86900; 86901; 85045

== ENCOUNTER 2023-07-09 14:00 | Outpatient (RCR) | payer MEDICAID, SELFPAY ==
[2023-07-03 13:30] LABS: HCT 39.9 % (36.0-46.0); HGB 13.4 g/dL (11.2-15.7); MCH 30.2 pg (27.0-33.0); MCHC 33.6 % (32.0-36.0); MCV 90 fL (80-95); MPV 10.8 fL (8.0-11.0); Platelet Count 362 10^3/uL (130-400); RBC 4.43 10^6/uL (3.93-5.22); RDW 13.3 % (11.7-14.6); RDW-SD 43.7 fL; WBC 11.89 10^3/uL (4.4-10.8)
[2023-07-03 13:54] LABS: ALT 42 U/L (14-59); AST 25 U/L (15-37); Alkaline Phosphatase 133 U/L (46-116); Anion Gap 11.3 mmol/L (3-11); BUN 20 mg/dL (7-18); Bilirubin, Total 1.6 mg/dL (0.2-1.0); CO2 26.7 mmol/L (21.0-32.0); CREATININE 0.9 mg/dL (0.55-1.02); Calcium 9.3 mg/dL (8.5-10.1); Chloride 106 mmol/L (98-107); Estimated GFR 71.83 (mL/min/1.73m2); Glucose 107 mg/dL (74-106); Potassium 3.7 mmol/L (3.5-5.1); Sodium 144 mmol/L (136-145); Total Protein 7.2 g/dL (6.4-8.2)
[2023-07-09 13:47] LABS: ESR < 1 mm/hr (0-30)
[2023-07-09 14:00] LABS: Iron 54 ug/dL (50-170); Total Iron Binding Capacity 272 ug/dL (250-450); Transferrin Sat 20 % (15-50)
[2023-07-09 14:20] LABS: C-Reactive Protein 1.19 mg/dL (<or=0.5); Ferritin 870 ng/mL (8-252)
[2023-07-12 12:02] LABS: Specimen WB Whole Blood
== END 2023-07-19 23:59 | disposition home or self-care (01) ==
LOC: INF 14:00
PROVIDERS: PCP Physician Assistant; Visit Provider Internal Medicine Hematology
DX: D59.2 Drug-induced nonautoimmune hemolytic anemia (principal)
CPT/HCPCS: 36415; 80053; 81256; 85027; 85652; 86850; 86900; 86901; 82728; 83540; 83550; 85045; 86140

== ENCOUNTER 2023-08-07 04:29 | Outpatient (RCR) | payer MEDICAID, SELFPAY ==
[2023-08-07 13:12] LABS: HCT 42.4 % (36.0-46.0); HGB 14.1 g/dL (11.2-15.7); MCH 30.5 pg (27.0-33.0); MCHC 33.3 % (32.0-36.0); MCV 92 fL (80-95); MPV 10.8 fL (8.0-11.0); Platelet Count 325 10^3/uL (130-400); RBC 4.63 10^6/uL (3.93-5.22); RDW 13.3 % (11.7-14.6); RDW-SD 44.8 fL; Reticulocyte 2.5 % (0.5-2.4); WBC 11.37 10^3/uL (4.4-10.8)
[2023-08-07 13:40] LABS: ALT 45 U/L (14-59); AST 25 U/L (15-37); Albumin 3.8 g/dL (3.4-5.0); Alkaline Phosphatase 140 U/L (46-116); Anion Gap 9.8 mmol/L (3-11); BUN 15 mg/dL (7-18); Bilirubin, Total 1.7 mg/dL (0.2-1.0); CO2 27.2 mmol/L (21.0-32.0); CREATININE 0.9 mg/dL (0.55-1.02); Calcium 8.9 mg/dL (8.5-10.1); Chloride 107 mmol/L (98-107); Estimated GFR 71.83 (mL/min/1.73m2); Glucose 110 mg/dL (74-106); Potassium 3.7 mmol/L (3.5-5.1); Sodium 144 mmol/L (136-145); Total Protein 7.1 g/dL (6.4-8.2)
== END 2023-08-19 23:59 | disposition home or self-care (01) ==
LOC: INF 04:29
PROVIDERS: PCP Physician Assistant; Visit Provider Internal Medicine Hematology
DX: D59.12 Cold autoimmune hemolytic anemia (principal)
CPT/HCPCS: 36415; 80053; 85027; 86900; 86901; 85045

== ENCOUNTER 2023-10-29 05:49 | Outpatient (RCR) | payer MEDICAID, SELFPAY ==
[2023-10-29 10:03] LABS: HCT 42.1 % (36.0-46.0); MCH 30.3 pg (27.0-33.0); MCHC 33.3 % (32.0-36.0); MCV 91 fL (80-95); MPV 11.1 fL (8.0-11.0); Platelet Count 319 10^3/uL (130-400); RBC 4.62 10^6/uL (3.93-5.22); RDW 13.5 % (11.7-14.6); Reticulocyte 3.1 % (0.5-2.4); WBC 10.72 10^3/uL (4.4-10.8)
[2023-10-29 10:33] LABS: ALT 52 U/L (14-59); AST 27 U/L (15-37); Albumin 3.9 g/dL (3.4-5.0); Alkaline Phosphatase 141 U/L (46-116); Bilirubin, Direct 0.2 mg/dL (0.0-0.2); Bilirubin, Total 1.6 mg/dL (0.2-1.0); Total Protein 7.1 g/dL (6.4-8.2)
== END 2023-11-18 23:59 | disposition home or self-care (01) ==
LOC: INF 05:49
PROVIDERS: PCP Physician Assistant; Visit Provider Internal Medicine Hematology
DX: D59.12 Cold autoimmune hemolytic anemia (principal)
CPT/HCPCS: 36415; 80076; 85027; 85045

== ENCOUNTER 2023-11-27 03:21 | Outpatient (RCR) | payer MEDICAID, SELFPAY ==
[2023-11-27 11:30] LABS: HCT 38.9 % (36.0-46.0); MCHC 33.4 % (32.0-36.0); MCV 90 fL (80-95); MPV 10.9 fL (8.0-11.0); Platelet Count 308 10^3/uL (130-400); RBC 4.33 10^6/uL (3.93-5.22); RDW 13.4 % (11.7-14.6); RDW-SD 43.8 fL; Reticulocyte 2.3 % (0.5-2.4); WBC 10.26 10^3/uL (4.4-10.8)
[2023-11-27 11:44] LABS: ALT 37 U/L (14-59); AST 22 U/L (15-37); Albumin 3.7 g/dL (3.4-5.0); Alkaline Phosphatase 144 U/L (46-116); Bilirubin, Direct 0.3 mg/dL (0.0-0.2); Bilirubin, Total 1.62 mg/dL (0.2-1.0); Total Protein 6.8 g/dL (6.4-8.2)
== END 2023-12-19 23:59 | disposition home or self-care (01) ==
LOC: INF 03:21
PROVIDERS: PCP Physician Assistant; Visit Provider Internal Medicine Hematology
DX: D59.12 Cold autoimmune hemolytic anemia (principal)
CPT/HCPCS: 36415; 80076; 85027; 85045

== ENCOUNTER → 2023-12-10 00:56 | Outpatient (CLI) | payer MEDICAID, SELFPAY ==
--- NOTE | 2023-12-10 | DI.MAMMO_ITS ---
Exam(s) MAMMO SCREENING EXAM: MAMMO SCREENING CLINICAL HISTORY: SCREENING,Z12.31 TECHNIQUE: Bilateral full field digital CC and MLO mammographic images were obtained with 3D tomosyn thesis and utilizing computer aided detection (CAD). COMPARISON: Available for comparison. FINDINGS: Masses/Architectural Distortion: None seen. Microcalcifications: No suspicious pleomorphic-type are seen. Skin Thickening/Nipple Retraction: None. IMPRESSION: 1. No significant interval change with no specific features of malignancy noted. 2. Unless there is more urgent need, screening mammography is recommended, as per [employer] [place] guidelines. BI-RADS Category 1 - Negative Breast Density - Category B - Scattered areas of fibroglandular density Breast density category C or D implies that the patient has dense breast tissue. Dense breast tissue is very common and is not abnormal but dense breast tissue can make it harder to find cancer on a ma mmogram. Also, dense breast tissue may increase their breast cancer risk. This information about the result of the mammogram report was provided to the patient to raise their awareness. Use this report when you speak with the patient about their risks for breast cancer, which includes their family hist ory. At that time, you may recommend for more screening tests (Ultrasound or MRI) as they might be us eful based on their risk. A negative radiographic report should not delay biopsy if a dominant or clinically suspicious mass is present. Up to ten percent of cancers are not identified on mammography. A negative report may reinforce clinical impression. Adenosis and dense breasts may obscure an underlying neoplasm. False positive reports average 6 to 10%. Patient will receive a letter notifying them of these results.
== END ==
PROVIDERS: PCP Physician Assistant; Visit Provider Physician Assistant
DX: Z12.31 Encounter for screening mammogram for malignant neoplasm of breast (principal)
CPT/HCPCS: 77063; 77067

== ENCOUNTER 2023-12-25 01:42 | Outpatient (RCR) | payer MEDICAID, SELFPAY ==
[2023-12-25 11:30] LABS: HCT 38.7 % (36.0-46.0); HGB 13.1 g/dL (11.2-15.7); MCH 31.3 pg (27.0-33.0); MCHC 33.9 % (32.0-36.0); MCV 93 fL (80-95); MPV 11.2 fL (8.0-11.0); Platelet Count 328 10^3/uL (130-400); RBC 4.18 10^6/uL (3.93-5.22); RDW-SD 47.1 fL; Reticulocyte 3.3 % (0.5-2.4)
[2023-12-25 11:46] LABS: ALT 42 U/L (14-59); AST 24 U/L (15-37); Alkaline Phosphatase 148 U/L (46-116); Bilirubin, Direct 0.3 mg/dL (0.0-0.2); Total Protein 7.1 g/dL (6.4-8.2)
[2023-12-25 18:49] LABS: HIV-1/2 Ag & Ab Screen Negative (Negative)
[2023-12-26 09:53] LABS: CA 19-9 11 U/mL (<35)
== END 2024-01-19 23:59 | disposition home or self-care (01) ==
LOC: INF 01:42
PROVIDERS: PCP Physician Assistant; Visit Provider Internal Medicine Hematology
DX: R93.3 Abnormal findings on diagnostic imaging of other parts of digestive tract (principal); R79.89 Other specified abnormal findings of blood chemistry
CPT/HCPCS: 36415; 80076; 82787; 85027; 87389; 85045; 86301

== ENCOUNTER 2024-02-21 01:18 | Outpatient (CLI) | payer MEDICAID, SELFPAY ==
--- NOTE | 2024-02-21 07:15 | DI.MRI_ITS ---
Exam(s) MR BRAIN WO EXAM: MR BRAIN WO CLINICAL HISTORY: Increased and worsening headaches,r51.9 TECHNIQUE: Multiplanar multisequence MRI of the brain was performed. COMPARISON: No exams were available for comparison FINDINGS: VENTRICLES AND EXTRA AXIAL SPACES: Normal in size and morphology for the patient's age. MIDLINE SHIFT: None. CEREBRAL PARENCHYMA: No focus of restricted diffusion to suggest acute infarct. No space-occupying le jaye identified. Mild atrophy consistent with the patient's age. Mild scattered foci of high signal in the white matter consistent with sequela of chronic microvascular disease. HEMORRHAGE: None. BRAINSTEM/CEREBELLUM: Normal. VISUALIZED PARANASAL SINUSES/MASTOIDS:Clear. Vasculature: Normal flow void. PITUITARY GLAND: Unremarkable. ORBITS: Unremarkable. IMPRESSION: Unremarkable MRI of the brain. DATA REPOSITORY:
== END 2024-02-21 01:38 ==
LOC: DI 01:18
PROVIDERS: PCP Physician Assistant; Visit Provider Nurse Practitioner Adult Health
DX: R51.9 Headache, unspecified (principal)
CPT/HCPCS: 70551

== ENCOUNTER 2024-03-13 02:29 | Outpatient (RCR) | payer MEDICAID, SELFPAY ==
[2024-03-13 13:30] LABS: HCT 32.1 % (36.0-46.0); HGB 10.9 g/dL (11.2-15.7); MCH 32.9 pg (27.0-33.0); MCV 97 fL (80-95); MPV 10.9 fL (8.0-11.0); Platelet Count 321 10^3/uL (130-400); RBC 3.31 10^6/uL (3.93-5.22); RDW 15.2 % (11.7-14.6); RDW-SD 51.7 fL; Reticulocyte 5.5 % (0.5-2.4); WBC 10.02 10^3/uL (4.4-10.8)
[2024-03-13 14:01] LABS: Bilirubin, Direct 0.4 mg/dL (0.0-0.2); Bilirubin, Total 3.14 mg/dL (0.2-1.0); LDH 234 U/L (81-234)
[2024-03-13 14:04] LABS: Hemoglobin A1C < 4.5 % (<5.7)
[2024-03-13 14:17] LABS: Vitamin B12 1314 pg/mL (193-986)
[2024-03-14 08:48] LABS: Haptoglobin 19 mg/dL (32-197)
== END 2024-03-20 23:59 | disposition home or self-care (01) ==
LOC: INF 02:29
PROVIDERS: PCP Physician Assistant; Visit Provider Internal Medicine Hematology
DX: D59.12 Cold autoimmune hemolytic anemia (principal)
CPT/HCPCS: 36415; 85027; 82247; 82248; 82607; 83010; 83036; 83615; 85045

== ENCOUNTER 2024-04-11 02:08 | Outpatient (RCR) | payer MEDICAID, SELFPAY ==
[2024-03-21 08:36] LABS: Abs Immature Grans 0.07 10^3/uL (0.0-0.06); Absolute Basophil Count 0.09 10^3/uL (0.0-0.2); Absolute Eosinophil Count 0.28 10^3/uL (0.0-0.7); Absolute Lymphocyte Count 2.33 10^3/uL (1.2-3.4); Absolute Monocyte Count 0.58 10^3/uL (0.1-0.8); Absolute Neutrophil Count 7.32 10^3/uL (1.2-6.7); Basophils % 0.8 %; Eosinophils % 2.6 %; HCT 33.6 % (36.0-46.0); HGB 11.2 g/dL (11.2-15.7); Immature Grans % 0.7 %; Lymphocytes % 21.8 %; MCH 31.7 pg (27.0-33.0); MCHC 33.3 % (32.0-36.0); MCV 95 fL (80-95); MPV 10.8 fL (8.0-11.0); Monocytes % 5.4 %; Neutrophils % 68.7 %; Platelet Count 315 10^3/uL (130-400); RBC 3.53 10^6/uL (3.93-5.22); RDW-SD 51.7 fL; Reticulocyte 5.5 % (0.5-2.4); WBC 10.67 10^3/uL (4.4-10.8)
[2024-03-21 08:50] LABS: ALT 37 U/L (14-59); AST 24 U/L (15-37); Albumin 3.9 g/dL (3.4-5.0); Alkaline Phosphatase 150 U/L (46-116); Anion Gap 9.4 mmol/L (3-11); BUN 15 mg/dL (7-18); Bilirubin, Total 3.44 mg/dL (0.2-1.0); CO2 26.6 mmol/L (21.0-32.0); Chloride 110 mmol/L (98-107); Estimated GFR 62.91 (mL/min/1.73m2); Glucose 161 mg/dL (74-106); LDH 205 U/L (81-234); Potassium 3.7 mmol/L (3.5-5.1); Sodium 146 mmol/L (136-145); Total Protein 6.9 g/dL (6.4-8.2)
[2024-03-24 11:05] LABS: Haptoglobin 10 mg/dL (32-197)
[2024-03-28 09:29] LABS: HCT 31.8 % (36.0-46.0); HGB 10.7 g/dL (11.2-15.7); MCH 32.4 pg (27.0-33.0); MCHC 33.6 % (32.0-36.0); MCV 96 fL (80-95); MPV 10.5 fL (8.0-11.0); Platelet Count 358 10^3/uL (130-400); RDW 15.6 % (11.7-14.6); RDW-SD 52.4 fL; Reticulocyte 6.4 % (0.5-2.4); WBC 13.28 10^3/uL (4.4-10.8)
[2024-03-28 09:45] LABS: Bilirubin, Direct 0.3 mg/dL (0.0-0.2); Bilirubin, Total 3.98 mg/dL (0.2-1.0); LDH 242 U/L (81-234)
[2024-03-31 09:19] LABS: Haptoglobin <7 mg/dL (32-197)
[2024-04-04 07:52] LABS: HCT 34.4 % (36.0-46.0); HGB 11.4 g/dL (11.2-15.7); MCH 31.9 pg (27.0-33.0); MCHC 33.1 % (32.0-36.0); MCV 96 fL (80-95); MPV 10.7 fL (8.0-11.0); Platelet Count 338 10^3/uL (130-400); RBC 3.57 10^6/uL (3.93-5.22); RDW 15.5 % (11.7-14.6); RDW-SD 54.3 fL; Reticulocyte 5.9 % (0.5-2.4); WBC 11.14 10^3/uL (4.4-10.8)
[2024-04-04 07:58] LABS: Bilirubin, Direct 0.4 mg/dL (0.0-0.2); LDH 201 U/L (81-234)
[2024-04-07 10:39] LABS: Haptoglobin 31 mg/dL (32-197)
[2024-04-11 08:01] LABS: HGB 12.4 g/dL (11.2-15.7); MCH 31.7 pg (27.0-33.0); MCHC 33.5 % (32.0-36.0); MCV 95 fL (80-95); MPV 10.6 fL (8.0-11.0); Platelet Count 338 10^3/uL (130-400); RBC 3.91 10^6/uL (3.93-5.22); RDW 14.8 % (11.7-14.6); RDW-SD 51.3 fL; Reticulocyte 4.1 % (0.5-2.4); WBC 10.47 10^3/uL (4.4-10.8)
[2024-04-11 08:15] LABS: Bilirubin, Direct 0.3 mg/dL (0.0-0.2); Bilirubin, Total 2.03 mg/dL (0.2-1.0); LDH 181 U/L (81-234)
[2024-04-14 09:55] LABS: Haptoglobin 40 mg/dL (32-197)
== END 2024-04-19 23:59 | disposition home or self-care (01) ==
LOC: INF 02:08
PROVIDERS: PCP Physician Assistant; Visit Provider Internal Medicine Hematology
DX: D59.12 Cold autoimmune hemolytic anemia (principal)
CPT/HCPCS: 36415; 80053; 85027; 82247; 82248; 83010; 83615; 85025; 85045

== ENCOUNTER 2024-05-06 02:45 | Outpatient (RCR) | payer MEDICAID, SELFPAY ==
[2024-05-06 12:50] LABS: HCT 40.1 % (36.0-46.0); HGB 13.4 g/dL (11.2-15.7); MCHC 33.4 % (32.0-36.0); MCV 93 fL (80-95); Platelet Count 370 10^3/uL (130-400); RBC 4.32 10^6/uL (3.93-5.22); RDW 13.4 % (11.7-14.6); RDW-SD 45.4 fL; Reticulocyte 2.8 % (0.5-2.4); WBC 10.04 10^3/uL (4.4-10.8)
[2024-05-06 13:16] LABS: LDH 230 U/L (81-234)
[2024-05-06 14:12] LABS: Bilirubin, Direct 0.2 mg/dL (0.0-0.2)
[2024-05-07 10:17] LABS: Haptoglobin 8 mg/dL (32-197)
== END 2024-05-20 23:59 | disposition home or self-care (01) ==
LOC: INF 02:45
PROVIDERS: PCP Physician Assistant; Visit Provider Internal Medicine Hematology
DX: D59.10 Autoimmune hemolytic anemia, unspecified (principal)
CPT/HCPCS: 36415; 85027; 82247; 82248; 83010; 83615; 85045

== ENCOUNTER 2024-06-03 03:17 | Outpatient (RCR) | payer MEDICAID, SELFPAY ==
[2024-06-03 13:17] LABS: HCT 40.7 % (36.0-46.0); HGB 13.6 g/dL (11.2-15.7); MCH 30.6 pg (27.0-33.0); MCHC 33.4 % (32.0-36.0); MCV 92 fL (80-95); MPV 10.8 fL (8.0-11.0); Platelet Count 337 10^3/uL (130-400); RBC 4.44 10^6/uL (3.93-5.22); RDW 13.3 % (11.7-14.6); RDW-SD 44.8 fL; Reticulocyte 2.9 % (0.5-2.4); WBC 11.17 10^3/uL (4.4-10.8)
[2024-06-03 13:42] LABS: Bilirubin, Direct 0.3 mg/dL (0.0-0.2); Bilirubin, Total 1.57 mg/dL (0.2-1.0); LDH 225 U/L (81-234)
[2024-06-04 09:38] LABS: Haptoglobin 37 mg/dL (32-197)
== END 2024-06-20 23:59 | disposition home or self-care (01) ==
LOC: INF 03:17
PROVIDERS: PCP Physician Assistant; Visit Provider Internal Medicine Hematology
DX: D59.12 Cold autoimmune hemolytic anemia (principal)
CPT/HCPCS: 36415; 85027; 82247; 82248; 83010; 83615; 85045

== ENCOUNTER 2024-06-03 18:23 | Inpatient (IN) | payer MEDICAID, SELFPAY ==
[2024-06-03] VITALS (133 sets, daily range): BP systolic 169–198; BP diastolic 66–103; PULSE 60–101; RESP 10–33; TEMP 37–37.1; O2SAT 87–98
--- NOTE | 2024-06-03 18:30 | DI.CT_ITS ---
Exam(s) CT ABDOMEN PELVIS W EXAM: CT ABDOMEN PELVIS W CLINICAL HISTORY: left flank and abdominal pain. TECHNIQUE: Imaging Protocol: Axial computed tomography images with coronal and sagittal reformatted images were created and reviewed CONTRAST MATERIAL: Intravenous: Omnipaque 350 Contrast volume:100 ml Oral: yes no COMPARISON: CT CT ABDOMEN PELVIS W from 02/16/2023 FINDINGS: ABDOMEN and PELVIS: Lung Bases: No acute findings. Liver: Hepatic steatosis. No suspicious mass. Gallbladder and biliary tract: Cholecystectomy.. No biliary dilation. Pancreas: Normal density. No abnormal calcifications or inflammatory process. No evidence of mass. Spleen: Normal. Kidneys: Normal size, contour and axis. No suspicious masses seen. Moderate left hydronephrosis se condary to a 2 millimeter stone at the ureterovesical junction. No additional calculi are seen in ei ther kidney. Delayed left nephrogram. Small amount of surrounding fluid. Pyelonephritis not exclud ed. Left renal cyst also present. Adrenal glands: No masses seen. Vasculature: Abdominal aorta non-dilated. Soft tissues: Small fat containing umbilical hernia. Bladder: No gross wall thickening. No calculi.No focal mass. Bowel: Vinay fundoplication. Tiny hiatal hernia. No obstruction. No bowel wall thickening. Appen juan normal. Diverticulosis. Peritoneal cavity: No ascites. No focal collection. No mesenteric inflammatory response. No free air . Bones: Unremarkable for age. Reproductive organs: Unremarkable. Lymph nodes: No pathologically enlarged lymph nodes. IMPRESSION:: Moderate left hydronephrosis secondary to 2 millimeter stone at the left ureterovesical junction. RADIATION DOSE DELIVERED: 520.15mGy.cm Total DLP DATA REPOSITORY: All CT scans at this facility are submitted to the National Radiology Data Registry (NRDR) Dose Index Registry (DIR) with the [employer] (A[employer]). RADIATION OPTIMIZATION: All CT scans at this facility use at least one of these dose optimization te chniques: automated exposure control; mA and/or kV adjustment per patient size (includes targeted exa ms where dose is matched to clinical indication); or iterative reconstruction.
--- NOTE | 2024-06-03 18:30 | RT.EKG_ITS ---
APPROVED REPORT Exam: Resting ECG Reason for Exam: nausea and vomiting Patient Location: E HR:78 bpm ECG Measurements Heart Rate 78 AXIS MO 145 P 56 QRSd 82 QRS 38 QT 397 T 35 QTc 452 Conclusion Sinus rhythm 78 normal axis no stemi
[2024-06-03] MEDS: Ondansetron 4 MG/2 ML VIAL IVP (18:40)
[2024-06-03 18:52] LABS: Abs Immature Grans 0.09 10^3/uL (0.0-0.06); Absolute Eosinophil Count 0.18 10^3/uL (0.0-0.7); Absolute Monocyte Count 1.18 10^3/uL (0.1-0.8); Absolute Neutrophil Count 12.22 10^3/uL (1.2-6.7); Basophils % 0.6 %; Eosinophils % 1.1 %; HCT 39.6 % (36.0-46.0); HGB 13.5 g/dL (11.2-15.7); Immature Grans % 0.6 %; Lymphocytes % 14.9 %; MCHC 34.1 % (32.0-36.0); MCV 91 fL (80-95); Monocytes % 7.3 %; Neutrophils % 75.5 %; Platelet Count 351 10^3/uL (130-400); RBC 4.36 10^6/uL (3.93-5.22); RDW 13.3 % (11.7-14.6); RDW-SD 44.3 fL; WBC 16.19 10^3/uL (4.4-10.8)
[2024-06-03 18:53] LABS: Absolute Lymphocyte Count 2.41 10^3/uL (1.2-3.4)
[2024-06-03] MEDS: MORPHine 4 MG/ML SYR IVP (18:55)
[2024-06-03] MEDS: Normal Saline 1,000 ML 1000 ML IV (18:59)
[2024-06-03 19:09] LABS: ALT 51 U/L (14-59); AST 35 U/L (15-37); Albumin 4.2 g/dL (3.4-5.0); Alkaline Phosphatase 153 U/L (46-116); Anion Gap 9.3 mmol/L (3-11); BUN 17 mg/dL (7-18); Bilirubin, Total 1.36 mg/dL (0.2-1.0); CO2 30.7 mmol/L (21.0-32.0); CREATININE 1.1 mg/dL (0.55-1.02); Chloride 105 mmol/L (98-107); Estimated GFR 56.11 (mL/min/1.73m2); Glucose 107 mg/dL (74-106); Lipase 37 U/L (<78); Potassium 3.8 mmol/L (3.5-5.1); Sodium 145 mmol/L (136-145); Total Protein 7.4 g/dL (6.4-8.2)
[2024-06-03 19:14] LABS: Troponin I 7 ng/L (<or=51)
[2024-06-03 19:16] LABS: Calcium 9.4 mg/dL (8.5-10.1)
[2024-06-03 19:17] LABS: Bilirubin Negative (Negative); Blood Small (Negative); Clarity Clear (Clear); Glucose Negative (Negative); Ketones Negative (Negative); Leukocyte Esterase Negative (Negative); Nitrite Negative (Negative); Urobilinogen 0.2 mg/dL (Up to 0.2); pH 7.5 (5-8)
[2024-06-03 19:24] LABS: Bacteria Negative HPF (Negative); C & S Indicated? No; Crystals Moderate Amorphous HPF (Negative); Epithelial Cells Negative HPF (Negative); Mucus Negative (Negative); WBC Negative HPF (0-5)
[2024-06-03] MEDS: Omnipaque 350 MG/ML 100 ML BTL IJ (19:34)
[2024-06-03] MEDS: Normal Saline - Diluent 50 ML VIAL IJ (19:35)
[2024-06-03] MEDS: Normal Saline Flush 10 ML SYR IVP (19:35)
[2024-06-03 19:54] LABS: COVID-19 PCR Negative (Negative); Influenza A PCR Negative (Negative); Influenza B PCR Negative (Negative); RSV PCR Negative (Negative); Source NASOPHARYNX
[2024-06-03] MEDS: Prochlorperazine 10 MG/2 ML VIAL 5 MG IVP (20:09)
[2024-06-03] MEDS: HYDROmorphone 2 MG/ML SYR 0.5 MG IVP ×3 (20:09→23:30)
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
[2024-06-03] MEDS: Normal Saline 500 ML IV (20:21)
[2024-06-03 20:34] LABS: Troponin I 9 ng/L (<or=51)
--- NOTE | 2024-06-03 20:45 | DI.VRAD_ITS ---
PROCEDURE INFORMATION: Exam: CT Abdomen And Pelvis With Contrast Exam date and time: 06/03/2024 7:37 PM Age: 64 years old Clinical indication: Other: Left flank and abdominal pain; Prior surgery; Surgery date: 6+ months; Surgery type: Vinay, cholecystectomy TECHNIQUE: Imaging protocol: Computed tomography of the abdomen and pelvis with contrast. Contrast material: OMNI 350; Contrast volume: 75 ml; Contrast route: INTRAVENOUS (IV); COMPARISON: CT ABDOMEN PELVIS W 02/16/2023 5:56 PM FINDINGS: Lungs: Linear bibasilar opacities most consistent with subsegmental atelectasis. Esophagus: Thickening of the visualized distal esophagus. Diaphragm: There is a small hiatal hernia. Liver: There is a diffuse decrease in hepatic parenchymal density, consistent with fatty infiltration. Gallbladder and biliary ducts: Post cholecystectomy. Pancreas: The pancreas is unremarkable. Spleen: No splenomegaly. No lesions. Adrenal glands: Normal. No mass. Kidneys and ureters: There is a obstructing left renal stone at the UVJ causing moderate hydronephrosis. Mildly striated left nephrogram with perinephric edema, characteristic of pyelonephritis. Acute. Stable bilateral kidney cysts. Stomach and bowel: Colonic diverticulosis without evidence of diverticulitis. Appendix: Normal appendix. Intraperitoneal space: Unremarkable. No free air. No significant fluid collection. Vasculature: Unremarkable. No abdominal aortic aneurysm. Lymph nodes: No mesentery adenopathy. No edema. Urinary bladder: No focal wall thickening of the urinary bladder. Reproductive: Unremarkable as visualized. Bones/joints: No acute osseous abnormality. Soft tissues: Small fat containing umbilical hernia. Soft tissues are unremarkable as visualized. IMPRESSION: 1. Mildly striated left nephrogram with perinephric edema, characteristic of pyelonephritis. 2. There is a obstructing left renal stone at the UVJ causing moderate hydronephrosis. Dictated and Authenticated by: Malka Starks MD. Ordering:SKYLA Oneal MD
[2024-06-03] MEDS: Tamsulosin 0.4 MG CAPCR PO (21:41)
[2024-06-03 23:30] LABS: Lactate 1.3 mmol/L (0.6-1.4)
[2024-06-03] MEDS: Normal Saline 1,000 ML 150 ML IV (23:30)
[2024-06-04] VITALS (120 sets, daily range): BP systolic 130–187; BP diastolic 67–119; PULSE 64–110; RESP 13–26; TEMP 36.4–37.5; O2SAT 92–98
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
[2024-06-04] MEDS: HYDROmorphone 2 MG/ML SYR 0.5 MG IVP ×2 (02:12→08:19)
[2024-06-04] MEDS: Normal Saline Flush 10 ML SYR IVP (02:13)
[2024-06-04 06:55] LABS: HCT 36.3 % (36.0-46.0); HGB 11.9 g/dL (11.2-15.7); MCH 30.7 pg (27.0-33.0); MCHC 32.8 % (32.0-36.0); MCV 94 fL (80-95); MPV 10.9 fL (8.0-11.0); Platelet Count 285 10^3/uL (130-400); RBC 3.87 10^6/uL (3.93-5.22); RDW 13.5 % (11.7-14.6); RDW-SD 46.1 fL; WBC 15.97 10^3/uL (4.4-10.8)
[2024-06-04 07:22] LABS: ALT 43 U/L (14-59); AST 25 U/L (15-37); Albumin 3.7 g/dL (3.4-5.0); BUN 14 mg/dL (7-18); Bilirubin, Total 1.37 mg/dL (0.2-1.0); CREATININE 1.4 mg/dL (0.55-1.02); Calcium 8.7 mg/dL (8.5-10.1); Chloride 109 mmol/L (98-107); Estimated GFR 42.01 (mL/min/1.73m2); Glucose 119 mg/dL (74-106); Magnesium 1.8 mg/dL (1.8-2.4); Potassium 3.7 mmol/L (3.5-5.1); Sodium 145 mmol/L (136-145); Total Protein 6.5 g/dL (6.4-8.2)
[2024-06-04 07:34] LABS: Alkaline Phosphatase 134 U/L (46-116)
[2024-06-04] MEDS: Normal Saline 1,000 ML 150 ML IV (07:56)
[2024-06-04] MEDS: Lidocaine 5% Patch 1 PATCH TP (08:20)
[2024-06-04] MEDS: Magnesium Oxide 400 MG TAB PO (08:24)
[2024-06-04] MEDS: Tamsulosin 0.4 MG CAPCR PO (08:25)
[2024-06-04] MEDS: Folic Acid 1 MG TAB PO (08:25)
[2024-06-04] MEDS: Diclofenac 1% Gel 100 GM TUBE TP ×2 (08:27→12:30)
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
[2024-06-04] MEDS: Rizatriptan 10 MG TAB PO ×2 (11:04→18:55)
--- NOTE | 2024-06-04 11:39 | PHA.REVIEW2 ---
Pharmacy Admission Review Admission Clinical Review Admission Pharmacy Review: Hydronephrosis, left (Acute) Left nephrolithiasis (Acute) lisinopril Allergy (Intermediate, Verified 06/03/24 18:29) Hives latex Allergy (Mild, Verified 06/03/24 18:29) rash oxycodone Adverse Reaction (Severe, Verified 06/03/24 18:29) Vomiting hydroxyzine Adverse Reaction (Intermediate, Verified 06/03/24 18:29) Other (See Comment) Sulfa (Sulfonamide Antibiotics) Adverse Reaction (Intermediate, Verified 06/03/24 18:29) yeast infections tetracycline Adverse Reaction (Intermediate, Verified 06/03/24 18:29) nausea levisin Allergy (Severe, Uncoded 06/03/24 18:29) unknown dihydro 225 Allergy (Intermediate, Uncoded 06/03/24 18:29) unknown Resuscitation Status Full Code Height 5 ft 3 in Weight 77.4 kg Comments Comments/Follow Ups: Urine culture pending, switch IV to PO? Pharmacy Admission Review Renal Dosing Renal Dosing: BUN 14 mg/dL (7-18) 06/04/24 06:25 Creatinine 1.4 mg/dL (0.55-1.02) H 06/04/24 06:25 Medications needing adjustments: Reviewed (CrCl 39.95 mL/min, SCr increased from 1.1) List of meds needing interventions: Current medications are okay Anticoagulation Anticoagulation: Hgb 11.9 g/dL (11.2-15.7) 06/04/24 06:25 Hct 36.3 % (36.0-46.0) 06/04/24 06:25 Plt Count 285 10^3/uL (130-400) 06/04/24 06:25 Creatinine 1.4 mg/dL (0.55-1.02) H 06/04/24 06:25 DVT Prophylaxis: Reviewed (TEDs) Opiate Usage Evaluate Pain Scale/Pains Meds: Reviewed (hydromorphone 0.5mg IVP q2h PRN - 1mg / 24hrs) Scheduled Bowel Reg ordered if on Opiates?: No (PRN docusate/Miralax) Relevant Labs Relevant Labs: Sodium 145 mmol/L (136-145) 06/04/24 06:25 Potassium 3.7 mmol/L (3.5-5.1) 06/04/24 06:25 Chloride 109 mmol/L (98-107) H 06/04/24 06:25 Magnesium 1.8 mg/dL (1.8-2.4) 06/04/24 06:25 Electrolytes, C-Reactive P, ESR: Reviewed (WBC decreased from 16.19 to 15.97, urine culture pending) Cardiac Review Cardiac Review: Troponin I Cancelled 06/03/24 21:42 BP, HR, EF%: Reviewed (BP and HR WNL) QTc Review QTc: Reviewed (452 from 06/03/24) IV to PO Switch IV Medications: Reviewed (hydromorphone, ondansetron and prochlorperazine) Home Meds Home Med List reviewed: Reviewed Relevent Home Meds Not ordered & why?: Rituxan (infusion) Changed vitamin B2 to patients own (non-formulary) - patient will need to bring in if they want to take it while inpatient Current Meds Current Medication Order Review: Intervened Comments: Added IV admission order set Comments Comments/Follow Ups: Urine culture pending, switch IV to PO?
--- NOTE | 2024-06-04 16:20 | CHAPLAIN ---
Eli was resting in bed when I stopped in. Her room was dark and the door was shut as she said she was trying to deal with a migraine headache, and had recently been given some medication for it. Eli explained that her mom in late March and she had been caring for her mom until she wasn't able to physically after developing an autoimmune issue. Her mom then went to live with Eli's sister in [place]. When I asked about her supports, Eli said she has a friend who was here with her but currently out of the room. Eli was connected to the [facility]. 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 She hasn't been involved with the gnosticism since her mom left the choir so she declined my offer to contact the gnosticism for her. I will continue to visit.
[2024-06-04] MEDS: Acetaminophen 325 MG TAB PO (16:36)
[2024-06-04] MEDS: Patch Removal 1 EACH TP (21:00)
[2024-06-05] VITALS (31 sets, daily range): BP systolic 129–198; BP diastolic 82–142; PULSE 55–80; RESP 12–23; TEMP 36.5–37.4; O2SAT 89–98; BMI 30.1
[2024-06-05] MEDS: Normal Saline 1,000 ML 150 ML IV ×2 (00:39→07:39)
[2024-06-05] MEDS: Normal Saline Flush 10 ML SYR IVP (00:39)
[2024-06-05] MEDS: Ketorolac 30 MG/ML VIAL IVP (03:55)
[2024-06-05] MEDS: Fluticasone NASAL SPRAY 16 GM BTL NS (06:27)
[2024-06-05 07:11] LABS: HGB 11.5 g/dL (11.2-15.7); MCH 31.2 pg (27.0-33.0); MCHC 33.8 % (32.0-36.0); MCV 92 fL (80-95); MPV 11.3 fL (8.0-11.0); Platelet Count 251 10^3/uL (130-400); RBC 3.69 10^6/uL (3.93-5.22); RDW 13.3 % (11.7-14.6); RDW-SD 44.8 fL; WBC 10.11 10^3/uL (4.4-10.8)
[2024-06-05 07:30] LABS: ALT 38 U/L (14-59); AST 24 U/L (15-37); Albumin 3.4 g/dL (3.4-5.0); Alkaline Phosphatase 117 U/L (46-116); Anion Gap 5.9 mmol/L (3-11); BUN 7 mg/dL (7-18); Bilirubin, Total 1.73 mg/dL (0.2-1.0); CO2 30.1 mmol/L (21.0-32.0); CREATININE 0.8 mg/dL (0.55-1.02); Calcium 8.5 mg/dL (8.5-10.1); Chloride 110 mmol/L (98-107); Estimated GFR 82.23 (mL/min/1.73m2); Glucose 97 mg/dL (74-106); Magnesium 1.8 mg/dL (1.8-2.4); Potassium 3.3 mmol/L (3.5-5.1); Sodium 146 mmol/L (136-145); Total Protein 6.2 g/dL (6.4-8.2)
--- NOTE | 2024-06-05 09:21 | W.PM.PROGNOT ---
Date of Service Date of service: 06/05/24 Time of Service: 09:21 Assessment and Plan Assessment and plan (1) Left nephrolithiasis: Start date: 06/03/24 Status: Acute Assessment and plan: This is a 64-year-old lady who has never had renal lithiasis presenting with left flank pain, hydronephrosis with what appears to be a passable UVJ stone on the left. [facility] [place] [place] and advised Flomax with IV hydration which will be with warm fluids and pain management with antiemetics as needed. She will be on a clear fluid diet. She is more comfortable and hopefully will pass the stone. If she has complications such as signs of infection which are not present upon admission or worsening pain and hydronephrosis, consider transfer to [facility] [place] for stenting. She is a full code. (2) Hydronephrosis, left: Start date: 06/03/24 Status: Acute Assessment and plan: As a consequence of small UVJ stone. This should clear with IV hydration and Flomax as well as pain management. If stone is not passed, she will need stenting. There is no emergent need for stenting. Follow-up ultrasound if patient is not improving over the next 24 hours. (3) Autoimmune hemolytic anemia, cold antibody type: Status: Chronic Assessment and plan: Warmed IV solutions for hydration to avoid triggering hemolytic anemia. Patient is stable on her present medical regimen and will follow-up with specialty [place] [facility] Exam Narrative Exam Narrative: Constitutional The patient is sitting in chair/ lying in bed comfortable and cooperative during the interview. The patient is well groomed without acute distress and has average body habitus/is obese/ is thin. HENMT: Head is atraumatic, normocephalic, no lymphadenopathy. Facial structures with normal appearance Eyes: Well aligned, intact ROM Neck: Normal ROM, no meningeal signs Neuro:alert and oriented to self, person, place time and situation. No neurological focal deficit, PERRLA Chest:Chest is symmetrical and normal appearance Resp: Normal respiratory pattern, speaks in full sentences, unlabored breathing, clear lung bilaterally Cardio: regular rhythm, S1, S2, no murmur, capillary refill<3 sec., bilateral radial and dorsalis pedis pulses are positive, palpable GI: Abdomen is not distended, soft and non tender, bowel sounds are present : Negative Costovertebral angle tenderness, no bladder distension Back/spine/Pelvis: No back tenderness, normal alignment Integumentary: No skin lesions or rash Extremities: strength 5/5 to bilateral lower and upper extremities Psych: RASS 0, congruent mood and normal affect. Objective Last Vital Signs Temp 36.5 C 06/05/24 03:48 Pulse 66 06/05/24 08:00 Resp 19 06/05/24 08:00 BP 140/83 06/05/24 08:00 Pulse Ox 95 06/05/24 08:00 Laboratory Results - last 24 hr 06/05/24 06:10 WBC 10.11 RBC 3.69 L Hgb 11.5 Hct 34.0 L MCV 92 MCH 31.2 MCHC 33.8 RDW 13.3 Plt Count 251 MPV 11.3 H Sodium 146 H Potassium 3.3 L Chloride 110 H Carbon Dioxide 30.1 Anion Gap 5.9 BUN 7 Creatinine 0.8 Est GFR (CKD-EPI 2020) 82.23 Glucose 97 Calcium 8.5 Magnesium 1.8 Total Bilirubin 1.73 H AST 24 ALT 38 Alkaline Phosphatase 117 H Total Protein 6.2 L Albumin 3.4
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
[2024-06-05] MEDS: ceFAZolin 2 GM/50 ML BAG 100 GM (11:49)
[2024-06-05] MEDS: Lidocaine 2% Jelly 11 ML SYR (12:15)
[2024-06-05] MEDS: Omnipaque 300 MG/ML 50 ML BTL (12:15)
--- NOTE | 2024-06-05 12:40 | W.PM.OP ---
Operative Note Operative Note PRE-OP DIAGNOSIS: Left ureteral stone POST-OP DIAGNOSIS: same PROCEDURE: Cystoscopy, left retrograde pyelogram, left ureteroscopy with stone extraction, insert left ureteral stent SURGEON: Jamal Vick ANESTHESIA TYPE: Local By Surgeon and General:No Airway Refer to Anesthesia Record ESTIMATED BLOOD LOSS: 5 PATHOLOGY: other (Stone for chemical analysis) COMPLICATIONS: None Patient was transported to: PACU Patient's condition: stable Implants: 4.8 American by 22-30 left ureteral stent Indications: This is a 64-year-old woman who presented to the emergency department with an acute onset of left flank pain. She required admission for hydration and analgesia. She was not able to pass her stone when she presents now for stone manipulation. Findings: Small left distal ureteral stone Procedure Description: The patient was given IV antibiotics and brought to the operating room on . After successful induction of general anesthesia without intubation, she was placed in the dorsal lithotomy position. Her genitalia was prepped and draped. 2% Xylocaine jelly was instilled into the urethra to act as a local anesthetic. A 22 American rigid cystoscope was passed through the urethra into the bladder. The urethra and bladder were inspected with a 30 degree lens. The right ureteral orifice appeared normal in configuration and location. The left orifice appeared normal in its location, but did appear to be more edematous than the right. I passed a 5 American access catheter into the left ureteral orifice and injected Omnipaque under fluoroscopic guidance. A small filling defect was seen in the distal ureter. I then passed a guidewire through the lumen of the access catheter and removed the cystoscope and the access catheter. I passed a semirigid ureteroscope through the urethra into the bladder and into the distal ureter. I was able to visualize a small stone, grasped the stone and a Kylie stone basket and removed the stone in its entirety. The stone was sent for chemical analysis. Because of the edema associated with the stone, I elected to place a ureteral stent. I chose a 4.8 American variable length stent and passed it over the guidewire. The proximal end of the stent was curled in the renal pelvis and the distal end was curled within the bladder. No safety string was left in place, so the patient will require cystoscopy and stent removal in about a week. She tolerated this procedure well with no complications. Date of Procedure: 06/05/24
--- NOTE | 2024-06-05 12:41 | DI.RAD_ITS ---
Exam(s) XR RETROGRADE IN OR EXAM: XR RETROGRADE IN OR CLINICAL HISTORY: LEFT KIDNEY STONE. TECHNIQUE: Fluoroscopy was provided for the referring physician for guidance with performing retrogr antonio procedure. COMPARISON: No exams were available for comparison FINDINGS: Please see procedure note for details. Fluoro time: 25.8 seconds RADIATION DOSE DELIVERED: sintia Harris=7.43 mGy
[2024-06-05] MEDS: Phenazopyridine 200 MG TAB PO (13:11)
--- NOTE | 2024-06-05 13:45 | W.ANESPOSTOP ---
Postoperative Evaluation Date, Time and Location Date Performed: 06/05/24 Time Performed: 12:45 Patient Location: PACU Vital Signs Most Recent Imported Vital Signs: Most Recent Vital Signs Temp Pulse Resp BP Pulse Ox 36.6 C 61 16 190/93 H 98 06/05/24 13:35 06/05/24 13:35 06/05/24 13:36 06/05/24 13:32 06/05/24 13:36 Pain Score Most Recent Pain Score: Most Recent Pain Score Pain Level [Left Flank] 4 06/04/24 15:13 Pain Level [Generalized] 7 06/04/24 08:49 Pain Level 0 06/05/24 13:42 Assessment Mental Status: Awake (Alert & Oriented to Patient Baseline) Airway and Respiratory Function: Patent airway with normal (patient baseline) respiratory exam Cardiovascular Function: Hemodynamically Stable Hydration Status: Adequately Hydrated Nausea & Vomiting: No Nausea or Vomiting Pain: Pt. Denies Any Pain Peripheral Nerve Block: Patient did not receive a nerve block
--- NOTE | 2024-06-05 14:13 | CHAPLAIN ---
Eli was sitting up at the edge of the bed and had just returned shortly before from surgery. She said she is feeling much better today and has recovered from the anesthesia much easier this time than other times, she said, and it helped relieve her migraine headache as well. She had a friend here providing support and was looking forward to eating something since she hasn't eaten in a few days. Eli said they removed the gallstone surgically so she won't have to pass it and she'll be back in a while to have stint removed. She had all good things to say about Dr. Vick.
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
--- NOTE | 2024-06-05 19:11 | CMDISCH_ITS ---
Date of service: 06/05/24 Time of Service: 19:11 LACE Index Scoring Tool Questions: Length of Stay (in days): 2 Was the patient admitted via the E.D.?: Yes E.D. Visits: 0 Answers: Total Score: 5 Risk of Readmission: Low Risk Care Management Discharge Plan Reason for Hospitalization: hydronephrosis with left nephrolithiasis Discharge Plan: Eli returned home today with no new services. She was transported home via private vehicle and will follow up with her PCP and discharge plan of care. Patient/Family Education Needs: Review discharge instructions and limitations, discussion of self care needs including ask me three. SDOH Health Related Social Needs: Health related social needs problems related to housin g/economic circumstances (Z59.89), education (Z55.6) Care Management Referrals: JOSE
[2024-06-11 13:32] LABS: Source: Left Ureter
== END 2024-06-05 18:29 | disposition home or self-care (01) | DRG 660 ==
LOC: ER 06-04 00:56 → MS 06-04 01:38
PROVIDERS: Urology; Admitting Provider Family Medicine; Emergency Provider Physician Assistant; PCP Physician Assistant; Visit Provider Family Medicine
PROC: 0TC78ZZ Extirpation of Matter from Left Ureter, Via Natural or Artificial Opening Endoscopic (ICD-10-PCS; CPT 52352; principal; 2024-06-05 10:30)
DX: N13.2 Hydronephrosis with renal and ureteral calculous obstruction (principal); D59.12 Cold autoimmune hemolytic anemia; M54.2 Cervicalgia; G43.009 Migraine without aura, not intractable, without status migrainosus; D75.838 Other thrombocytosis; M54.16 Radiculopathy, lumbar region; E55.9 Vitamin D deficiency, unspecified; I10 Essential (primary) hypertension; K29.60 Other gastritis without bleeding; G25.81 Restless legs syndrome; M79.7 Fibromyalgia; M35.00 Sjogren syndrome, unspecified; E78.5 Hyperlipidemia, unspecified
CPT/HCPCS: 52352; 52332; 00123; 36415; 80053; 83690; 85027; 87637; 93005; 96361; 96374; 96375; 96376; 99285; 74177; 74420; 81003; 81015; 82365; 83605; 83735; 84484; 85025; 87086; 93010; 94760; 99223; 99239; J0690; J0780; J1100; J1171; J1596; J1885; J2270; J2405; J2704; J3490; Q9967

== ENCOUNTER 2024-07-01 03:13 | Outpatient (RCR) | payer MEDICAID, SELFPAY ==
[2024-07-01 13:24] LABS: HCT 42.9 % (36.0-46.0); HGB 14.1 g/dL (11.2-15.7); MCHC 32.9 % (32.0-36.0); MCV 91 fL (80-95); MPV 11.1 fL (8.0-11.0); Platelet Count 358 10^3/uL (130-400); RDW 13.4 % (11.7-14.6); RDW-SD 44.8 fL; Reticulocyte 2.6 % (0.5-2.4); WBC 10.55 10^3/uL (4.4-10.8)
[2024-07-01 13:47] LABS: Bilirubin, Direct 0.3 mg/dL (0.0-0.2); Bilirubin, Total 1.39 mg/dL (0.2-1.0); LDH 216 U/L (81-234)
[2024-07-02 10:23] LABS: Haptoglobin 37 mg/dL (32-197)
== END 2024-07-18 23:59 | disposition home or self-care (01) ==
LOC: INF 03:13
PROVIDERS: PCP Physician Assistant; Visit Provider Internal Medicine Hematology
DX: D59.12 Cold autoimmune hemolytic anemia (principal)
CPT/HCPCS: 36415; 85027; 82247; 82248; 83010; 83615; 85045

== ENCOUNTER 2024-07-29 01:11 | Outpatient (CLI) | payer MEDICAID, SELFPAY ==
--- NOTE | 2024-07-29 07:45 | DI.US_ITS ---
Exam(s) US RENAL EXAM: US RENAL CLINICAL HISTORY: ? hydronephrosis after ureteroscopy,LT NEPHROLITHIASIS,N20.0,N13.30 TECHNIQUE: Ultrasound of both kidneys performed using standard protocol. COMPARISON: US US ABDOMEN LIMITED from 01/09/[address] ABDOMEN PELVIS W from 06/03/[address] scan performed 06/04/2024. FINDINGS: Recent CT scan of 06/03/2024 revealed a calculus in the lower left ureter UVJ junction with dilatatio n of the left collecting system above this level. RIGHT KIDNEY: Measures 9.8 cm in length. No cysts evident. Normal cortical thickness and corticomedullary different iation .No solid masses No intrarenal calculi nor hydronephrosis. LEFT KIDNEY: Measures 10.3 cm in length. There is a solitary cyst in the lateral cortex which is partly exophytic and which measures 3.3 x 4.0 x 3.9 cm. Normal cortical thickness and corticomedullary differentiaio n. No solids masses. No intrarenal calculi nor hydonephrosis. URINARY BLADDER: Prevoid volume is 38 cc Postvoid volume is 0 cc No evidence of bladder mass nor diverticuli. Ureterovesical jets: Both identified and appear symmetrical IMPRESSION: 1. There are no calculi seen in the kidneys and there is no hydronephrosis, realizing that recent CT scan of 06/03/2024 revealed mild left-sided hydronephrosis due to a calculus the left ureterovesical junction. The fact that there is no longer obvious hydronephrosis +presence of ureterovesical jet w ithin the urinary bladder on the left side probably indicates that the stone has passed. 2. There is a benign 4 cm cyst in the mid aspect of the left kidney. This does not require further imaging workup. DATA REPOSITORY:
== END 2024-07-29 01:31 ==
LOC: DI 01:11
PROVIDERS: PCP Physician Assistant; Visit Provider Urology
DX: N20.0 Calculus of kidney
CPT/HCPCS: 76770

== ENCOUNTER 2024-07-29 02:41 | Outpatient (RCR) | payer MEDICAID, SELFPAY ==
[2024-07-29 13:25] LABS: Abs Immature Grans 0.06 10^3/uL (0.0-0.06); Absolute Basophil Count 0.11 10^3/uL (0.0-0.2); Absolute Eosinophil Count 0.22 10^3/uL (0.0-0.7); Absolute Monocyte Count 0.62 10^3/uL (0.1-0.8); Absolute Neutrophil Count 8.66 10^3/uL (1.2-6.7); Eosinophils % 1.9 %; HCT 43.2 % (36.0-46.0); HGB 14.5 g/dL (11.2-15.7); Immature Grans % 0.5 %; Lymphocytes % 15.7 %; MCH 30.3 pg (27.0-33.0); MCHC 33.6 % (32.0-36.0); MCV 90 fL (80-95); MPV 11.1 fL (8.0-11.0); Monocytes % 5.4 %; Neutrophils % 75.5 %; Platelet Count 346 10^3/uL (130-400); RBC 4.79 10^6/uL (3.93-5.22); RDW 13.2 % (11.7-14.6); RDW-SD 43.3 fL; Reticulocyte 2.3 % (0.5-2.4); WBC 11.47 10^3/uL (4.4-10.8)
[2024-07-29 13:40] LABS: ALT 50 U/L (14-59); AST 25 U/L (15-37); Albumin 4.2 g/dL (3.4-5.0); Alkaline Phosphatase 151 U/L (46-116); Anion Gap 11.4 mmol/L (3-11); BUN 14 mg/dL (7-18); Bilirubin, Total 1.4 mg/dL (0.2-1.0); CO2 27.6 mmol/L (21.0-32.0); Calcium 9.4 mg/dL (8.5-10.1); Chloride 107 mmol/L (98-107); Estimated GFR 62.91 (mL/min/1.73m2); Glucose 152 mg/dL (74-106); LDH 186 U/L (81-234); Potassium 3.4 mmol/L (3.5-5.1); Sodium 146 mmol/L (136-145); Total Protein 7.4 g/dL (6.4-8.2)
[2024-07-30 10:14] LABS: Haptoglobin 46 mg/dL (32-197)
== END 2024-08-18 23:59 | disposition home or self-care (01) ==
LOC: INF 02:41
PROVIDERS: PCP Physician Assistant; Visit Provider Internal Medicine Hematology
DX: D59.12 Cold autoimmune hemolytic anemia (principal)
CPT/HCPCS: 36415; 80053; 83010; 83615; 85025; 85045

== ENCOUNTER 2024-12-08 20:01 | Outpatient (REF) | payer MEDICAID, SELFPAY ==
[2024-12-10 11:15] LABS: Varicella Zoster DNA Result Negative (Negative)
== END 2024-12-08 20:02 | disposition home or self-care (01) ==
LOC: LBN 20:01
PROVIDERS: PCP Physician Assistant; Visit Provider Nurse Practitioner Family
DX: R21 Rash and other nonspecific skin eruption (principal)
CPT/HCPCS: 87798

== ENCOUNTER → 2025-01-29 14:26 | Outpatient (BNVA) | payer MEDICARE, MEDICAID, SELFPAY | PROVIDERS: PCP Physician Assistant; Referring Provider Physician Assistant; Visit Provider Nurse Practitioner Adult Health | DX: G43.001 Migraine without aura, not intractable, with status migrainosus (principal) | CPT/HCPCS: 99214; 96372; J1885 ==

== ENCOUNTER 2025-02-19 04:07 | Outpatient (CLI) | payer MEDICARE, MEDICAID, SELFPAY ==
[2025-02-19 13:50] LABS: Abs Immature Grans 0.06 10^3/uL (0.0-0.06); HCT 42.1 % (36.0-46.0); HGB 14.0 g/dL (11.2-15.7); Immature Grans % 0.5 %; MCH 29.5 pg (27.0-33.0); MCHC 33.3 % (32.0-36.0); MCV 89 fL (80-95); MPV 10.7 fL (8.0-11.0); Platelet Count 386 10^3/uL (130-400); RBC 4.74 10^6/uL (3.93-5.22); RDW 13.3 % (11.7-14.6); RDW-SD 43.2 fL; WBC 12.91 10^3/uL (4.4-10.8)
[2025-02-19 14:33] LABS: ALT 49 U/L (14-59); AST 33 U/L (15-37); Albumin 4.3 g/dL (3.4-5.0); Alkaline Phosphatase 159 U/L (46-116); Anion Gap 12.6 mmol/L (3-11); BUN 16 mg/dL (7-18); Bilirubin, Total 1.8 mg/dL (0.2-1.0); CO2 25.4 mmol/L (21.0-32.0); Calcium 9.3 mg/dL (8.5-10.1); Chloride 104 mmol/L (98-107); Estimated GFR 62.52 (mL/min/1.73m2); Glucose 137 mg/dL (74-106); LDH 218 U/L (81-234); Potassium 3.7 mmol/L (3.5-5.1); Sodium 142 mmol/L (136-145); Total Protein 7.7 g/dL (6.4-8.2)
== END 2025-02-19 04:08 | disposition home or self-care (01) ==
LOC: LBO 04:07
PROVIDERS: PCP Physician Assistant
DX: D59.12 Cold autoimmune hemolytic anemia (principal)
CPT/HCPCS: 36415; 80053; 83010; 83615; 85025; 85045

== ENCOUNTER 2025-03-06 14:48 | Outpatient (CLI) | payer MEDICARE, MEDICAID, SELFPAY ==
[2025-03-06 11:16] LABS: Abs Immature Grans 0.06 10^3/uL (0.0-0.06); HCT 42.3 % (36.0-46.0); HGB 14.2 g/dL (11.2-15.7); Immature Grans % 0.5 %; MCH 30.0 pg (27.0-33.0); MCHC 33.6 % (32.0-36.0); MCV 89 fL (80-95); MPV 10.8 fL (8.0-11.0); Platelet Count 347 10^3/uL (130-400); RBC 4.74 10^6/uL (3.93-5.22); RDW 13.5 % (11.7-14.6); RDW-SD 44.2 fL; WBC 12.11 10^3/uL (4.4-10.8)
[2025-03-06 11:40] LABS: ALT 49 U/L (14-59); AST 29 U/L (15-37); Albumin 4.0 g/dL (3.4-5.0); Alkaline Phosphatase 160 U/L (46-116); Anion Gap 11.7 mmol/L (3-11); BUN 16 mg/dL (7-18); Bilirubin, Total 1.5 mg/dL (0.2-1.0); CO2 26.3 mmol/L (21.0-32.0); Calcium 8.7 mg/dL (8.5-10.1); Chloride 104 mmol/L (98-107); Estimated GFR 62.52 (mL/min/1.73m2); Glucose 155 mg/dL (74-106); LDH 227 U/L (81-234); Potassium 3.6 mmol/L (3.5-5.1); Sodium 142 mmol/L (136-145); Total Protein 7.5 g/dL (6.4-8.2)
== END 2025-03-06 14:49 | disposition home or self-care (01) ==
PROVIDERS: PCP Physician Assistant; Visit Provider Student in an Organized Health Care Education/Training Program
DX: D59.12 Cold autoimmune hemolytic anemia (principal)
CPT/HCPCS: 36415; 80053; 83010; 83615; 85025; 85045

== ENCOUNTER 2025-03-12 15:16 | Outpatient (REF) | payer MEDICARE, MEDICAID, SELFPAY ==
--- NOTE | 2025-03-12 12:10 | PAPFT_PTH ---
PATIENT: Eli Brasher LOC: [facility] U#:[id number] AGE/SX: 65/F ROOM: RE03/12/[address]: Bhanu Holland : 1960 BED: DIS: 03/12/2025 SPEC #: [id number] RECD: 03/12/25 18:03 STATUS: DEANNE REQ #: [id number] [place]: 03/12/25 12:[address]: Bhanu Holland DEPT: [facility] Cytology RECD BY: Kimmy Monge Tissues: 1 - CX/ENDOCX FOR PAP SMEARS Procedures: PAP THIN PREP/UVM Screening HPV DNA PROBE Comments: [id number] (HPV 16 & 18/45)
== END 2025-03-12 15:17 | disposition home or self-care (01) ==
LOC: LBN 15:16
PROVIDERS: PCP Physician Assistant; Visit Provider Physician Assistant
DX: Z12.4 Encounter for screening for malignant neoplasm of cervix (principal)
CPT/HCPCS: 88142; 87624

== ENCOUNTER 2025-03-24 01:23 | Outpatient (CLI) | payer MEDICARE, MEDICAID, SELFPAY ==
[2025-03-24 13:29] LABS: Abs Immature Grans 0.07 10^3/uL (0.0-0.06); HCT 40.4 % (36.0-46.0); HGB 13.5 g/dL (11.2-15.7); Immature Grans % 0.6 %; MCH 29.6 pg (27.0-33.0); MCHC 33.4 % (32.0-36.0); MCV 89 fL (80-95); MPV 10.5 fL (8.0-11.0); Platelet Count 352 10^3/uL (130-400); RBC 4.56 10^6/uL (3.93-5.22); RDW 13.4 % (11.7-14.6); RDW-SD 43.3 fL; WBC 11.97 10^3/uL (4.4-10.8)
[2025-03-24 14:07] LABS: ALT 43 U/L (14-59); AST 22 U/L (15-37); Albumin 4.1 g/dL (3.4-5.0); Alkaline Phosphatase 158 U/L (46-116); Anion Gap 11.0 mmol/L (3-11); BUN 12 mg/dL (7-18); Bilirubin, Total 1.6 mg/dL (0.2-1.0); CO2 27.0 mmol/L (21.0-32.0); Calcium 9.1 mg/dL (8.5-10.1); Chloride 104 mmol/L (98-107); Glucose 125 mg/dL (74-106); LDH 217 U/L (81-234); Potassium 3.4 mmol/L (3.5-5.1); Sodium 142 mmol/L (136-145); Total Protein 7.6 g/dL (6.4-8.2)
== END 2025-03-24 01:24 | disposition home or self-care (01) ==
PROVIDERS: PCP Physician Assistant
DX: D59.12 Cold autoimmune hemolytic anemia (principal)
CPT/HCPCS: 36415; 80053; 83010; 83615; 85025; 85045

== ENCOUNTER 2025-04-20 20:46 | Outpatient (CLI) | payer MEDICARE, MEDICAID, SELFPAY ==
[2025-04-20 15:47] LABS: Abs Immature Grans 0.16 10^3/uL (0.0-0.06); HCT 42.9 % (36.0-46.0); HGB 14.3 g/dL (11.2-15.7); Immature Grans % 1.0 %; MCH 29.7 pg (27.0-33.0); MCHC 33.3 % (32.0-36.0); MCV 89 fL (80-95); MPV 10.3 fL (8.0-11.0); Platelet Count 414 10^3/uL (130-400); RBC 4.81 10^6/uL (3.93-5.22); RDW 13.4 % (11.7-14.6); RDW-SD 43.8 fL; WBC 15.71 10^3/uL (4.4-10.8)
[2025-04-20 16:44] LABS: LDH 263 U/L (120-246)
[2025-04-20 16:45] LABS: ALT 51 U/L (10-49); AST 41 U/L (<34); Albumin 4.9 g/dL (3.2-5.0); Alkaline Phosphatase 159 U/L (46-116); Anion Gap 10.4 mmol/L (3-11); BUN 14 mg/dL (9-23); Bilirubin, Total 1.80 mg/dL (0.2-1.2); CO2 26.6 mmol/L (20.0-31.0); Calcium 9.8 mg/dL (8.3-10.6); Chloride 107 mmol/L (98-107); Glucose 79 mg/dL (74-106); Potassium 3.9 mmol/L (3.5-5.1); Sodium 144 mmol/L (136-145); Total Protein 7.8 g/dL (5.7-8.2)
== END 2025-04-20 20:47 | disposition home or self-care (01) ==
LOC: LBO 20:47
PROVIDERS: PCP Physician Assistant
DX: D59.12 Cold autoimmune hemolytic anemia (principal)
CPT/HCPCS: 36415; 80053; 83010; 83615; 85025; 85045